=== PATIENT | male | born 1935 | race Caucasian/White ===

== ENCOUNTER 2016-10-06 05:24 | Inpatient (IN) ==
[2016-10-06 05:45] LABS: Eosinophils # 0.1 K/mcL (0.0-0.6); Eosinophils % 3.2 %; Hemoglobin 12.9 g/dL (12.9-16.9); Lymphocytes # 0.9 K/mcL (0.6-4.6); Lymphocytes % 21.7 %; Mean Corpuscular HGB Conc 31.5 g/dL (31.6-35.5); Mean Corpuscular Hemoglobin 23.4 pg (28.0-33.3); Mean Corpuscular Volume 74.4 fL (83.0-100.0); Mean Platelet Volume 10.1 fL (9.4-12.4); Monocytes # 0.4 K/mcL (0.0-1.3); Monocytes % 10.6 %; Neutrophils # 2.6 K/mcL (1.6-8.9); Platelet Count 223 K/mcL (140-400); Red Blood Count 5.51 M/mcL (4.19-5.50); Segmented Neutrophils % 63.5 %
[2016-10-06] MEDS ORDERED: Aspirin 81 MG TAB.CHEW PO ONE (05:52)
[2016-10-06 05:56] LABS: Calcium 9.1 mg/dL (8.6-10.8); Potassium 3.7 mEq/L (3.5-4.5)
[2016-10-06] MEDS: Nitroglycerin 0.4 MG TAB.SUBL SL ONE ×3 (06:07→06:29)
--- NOTE | 2016-10-06 06:15 | Emergency Department Note ---
Disposition Clinical Impression: Lung nodule Chest pain Qualifiers: Chest pain type: unspecified Qualified Code(s): R07.9 - Chest pain, unspecified Disposition: Admitted As Inpatient Condition: Fair Chest Pain HPI - General Chief Complaint: ED Chest Pain Stated Complaint: CP Time Seen by Provider: 10/06/16 05:29 Source: patient, EMS Mode of arrival: EMS Limitations: no limitations Vital Signs Reviewed: Yes Nursing Notes Reviewed: Yes - History of Present Illness HPI Narrative: 81-year-old male history of hypertension and former smoker presents to ED via EMS for chest pain. Reports around 3 o'clock this morning he woke up to go to the bathroom when he began to experience a sharp right-sided chest pain that radiated to the left chest into the back with radiation down both arms numbness and tingling. He denies any shortness of breath, diaphoresis, nausea or vomiting. No history of such before. No history of cardiac ischemic disease. Pain persists in the chest but does not have any numbness or tingling down arms currently. Denies any recent illness, cough, fever, abdominal pain. Denies any urinary symptoms. He follows at the [facility]. No history of blood clots. Pt complaint: chest pain Severity scale (1-10): 10 - Related Data Home Medications Medication Instructions Recorded Confirmed Acetaminophen [Tylenol] 650 mg PO TID PRN 10/06/16 10/06/16 Aspirin [Lo-Dose Aspirin EC] 81 mg PO DAILY 10/06/16 10/06/16 CloNIDine HCl 0.1 mg PO BID 10/06/16 10/06/16 Losartan Potassium [Cozaar] 50 mg PO DAILY 10/06/16 10/06/16 Meclizine [Antivert] 12.5 mg PO TID PRN 10/06/16 10/06/16 Allergies Allergy/AdvReac Type Severity Reaction Status Date / Time Penicillins Allergy Anaphylaxis Verified 10/06/16 05:26 All systems ED: reviewed and negative except as stated. Constitutional: Denies: fever, chills, weakness Cardiovascular: Reports: chest pain. Denies: palpitations, dyspnea on exertion Respiratory: Denies: cough, dyspnea Gastrointestinal: Denies: abdominal pain, nausea, vomiting Genitourinary: Denies: urgency, dysuria Musculoskeletal: Reports: back pain Integumentary: Denies: rash, abrasion Neurological: Denies: headache Chest Pain PMH - Past Medical History Medical history: Reports: hypertension Psychiatric history: Reports: no psych history - Social History Smoking Status: Former smoker Physical Exam - General Limitations: no limitations General appearance: alert, in no apparent distress - Head Head exam: atraumatic, normocephalic, normal inspection - Eye Eye exam: Present: normal appearance, PERRL, EOMI - ENT ENT exam: normal exam, normal oropharynx, mucous membranes moist - Neck Neck exam: Present: normal inspection, full ROM, trachea midline. Absent: tenderness - Chest Chest inspection: Present: normal inspection, symmetric chest wall rise. Absent : tenderness - Respiratory Respiratory exam: Present: normal lung sounds bilaterally. Absent: respiratory distress, wheezes - Cardiovascular Cardiovascular exam: Present: regular rate, normal rhythm, normal heart sounds. Absent: systolic murmur, diastolic murmur - Abdominal Exam Abdominal exam: Present: soft, Non-Tender, normal bowel sounds. Absent: tenderness, distention, guarding, rebound, rigidity - Extremities Exam Extremities exam: Present: normal inspection, full ROM, normal capillary refill. Absent: tenderness, pedal edema, calf tenderness - Back Exam Back exam: Present: normal inspection, full ROM. Absent: tenderness, vertebral tenderness - Neurological Exam Neurological exam: Present: alert, oriented X3 - Psychiatric Psychiatric exam: Present: normal affect, normal mood - Skin Skin exam: Present: warm, dry, intact, normal color Course Course Narrative: 81-year-old male presents with chest pain. No history of cardiac ischemic disease. No prior history of cardiac workup. History of hypertension. Patient 's vital signs are stable. EKG does not show acute ischemic changes consistent with STEMI pattern. Appears in no apparent distress. Heart is regular rate and rhythm. Lungs are clear auscultation bilaterally. Abdomen is soft nontender nondistended. Pulses are symmetrical bilaterally. Chest pain workup initiated. Initial HEART score is 4 pending troponin. Aspirin given. Given a nitro trial. Patient is in agreement with plan. Likely need admission. - Reevaluation(s) Reevaluation #1: Repeat EKG performed 643 shows a similar findings of normal sinus rhythm with an occasional premature atrial complex. No progression of any ischemic changes. Pain diminished after 3 nitro but down to 3-4. BP remains stable. Continues to describe pain radiating to the back. Initial troponin 0.02. CT of the chest with contrast to rule out dissection. Cr is elevated at 1.5. Normal saline ordered to protect risk of nephropathy. Patient is agreeable. Patient signed out to daytime physician Dr. Storm for further management and disposition following CTA chest. Time: 06:57 Vital Signs Temperature 97.9 F 10/06/16 05:26 Pulse Rate 70 10/06/16 05:26 Respiratory Rate 12 10/06/16 05:26 Blood Pressure 141/82 10/06/16 05:26 O2 Sat by Pulse Oximetry 99 10/06/16 05:26 Temperature 97.7 F 10/07/16 15:08 Pulse Rate 60 10/07/16 15:08 Respiratory Rate 14 10/07/16 15:08 Blood Pressure 161/76 10/07/16 15:08 O2 Sat by Pulse Oximetry 97 10/07/16 15:08 Oxygen Delivery Oxygen Delivery Room Air Chest Pain - Medical Records Medical records reviewed: Yes I reviewed the patient's medical records. - Lab Data Lab results reviewed: Yes I reviewed the patient's lab results. Result diagrams: 10/07/16 03:33 10/07/16 03:33 Lab Results 10/06/16 10/06/16 10/06/16 Range/Units 05:36 05:36 05:36 WBC 4.1 L (4.3-11.1) K/mcL RBC 5.51 H (4.19-5.50) M/mcL Hgb 12.9 (12.9-16.9) g/dL Hct 41.0 (37.5-50.1) % MCV 74.4 L (83.0-100.0) fL MCH 23.4 L (28.0-33.3) pg MCHC 31.5 L (31.6-35.5) g/dL RDW 15.0 H (11.5-14.5) % Plt Count 223 (140-400) K/mcL MPV 10.1 (9.4-12.4) fL Immature Gran % 0.0 (0-4) % Seg Neutrophils % 63.5 % Lymphocytes % 21.7 % Monocytes % 10.6 % Eosinophils % 3.2 % Basophils % 1.0 % Neutrophils # 2.6 (1.6-8.9) K/mcL Lymphocytes # 0.9 (0.6-4.6) K/mcL Monocytes # 0.4 (0.0-1.3) K/mcL Eosinophils # 0.1 (0.0-0.6) K/mcL Basophils # 0.0 (0.0-0.2) K/mcL PT (9.4-12.1) Seconds INR APTT (26.0-36.0) Seconds Sodium 135 L (136-145) mEq/L Potassium 3.7 (3.5-4.5) mEq/L Chloride 101 (98-109) mEq/L Carbon Dioxide 23 (19-29) mEq/L BUN 27 H (8-26) mg/dL Creatinine 1.56 H (0.72-1.25) mg/dL Est GFR ( Amer) 52 L (> 60) Est GFR (Non-Af Amer) 43 L (> 60) BUN/Creatinine Ratio 17 (6-26) Glucose 128 H (70-99) mg/dL Calculated Osmolality 287 (280-300) Calcium 9.1 (8.6-10.8) mg/dL Total Bilirubin 0.5 (0.2-1.2) mg/dL Direct Bilirubin 0.2 (0.0-0.5) mg/dL Indirect Bilirubin 0.3 (0.0-1.2) mg/dL AST 25 (5-34) Units/L ALT 23 (0-55) Units/L Alkaline Phosphatase 73 (38-126) Units/L Troponin I 0.02 (0-0.03) ng/mL Serum Total Protein 7.4 (6.0-8.3) g/dL Albumin 3.8 (3.5-5.0) g/dL Globulin 3.6 H (2.4-3.5) g/dL Albumin/Globulin Ratio 1.1 (1.1-2.2) Lipase 48 (8-78) Units/L 04/05/17 Range/Units 05:36 WBC (4.3-11.1) K/mcL RBC (4.19-5.50) M/mcL Hgb (12.9-16.9) g/dL Hct (37.5-50.1) % MCV (83.0-100.0) fL MCH (28.0-33.3) pg MCHC (31.6-35.5) g/dL RDW (11.5-14.5) % Plt Count (140-400) K/mcL MPV (9.4-12.4) fL Immature Gran % (0-4) % Seg Neutrophils % % Lymphocytes % % Monocytes % % Eosinophils % % Basophils % % Neutrophils # (1.6-8.9) K/mcL Lymphocytes # (0.6-4.6) K/mcL Monocytes # (0.0-1.3) K/mcL Eosinophils # (0.0-0.6) K/mcL Basophils # (0.0-0.2) K/mcL PT 10.9 (9.4-12.1) Seconds INR 1.0 APTT 27.9 (26.0-36.0) Seconds Sodium (136-145) mEq/L Potassium (3.5-4.5) mEq/L Chloride (98-109) mEq/L Carbon Dioxide (19-29) mEq/L BUN (8-26) mg/dL Creatinine (0.72-1.25) mg/dL Est GFR ( Amer) (> 60) Est GFR (Non-Af Amer) (> 60) BUN/Creatinine Ratio (6-26) Glucose (70-99) mg/dL Calculated Osmolality (280-300) Calcium (8.6-10.8) mg/dL Total Bilirubin (0.2-1.2) mg/dL Direct Bilirubin (0.0-0.5) mg/dL Indirect Bilirubin (0.0-1.2) mg/dL AST (5-34) Units/L ALT (0-55) Units/L Alkaline Phosphatase (38-126) Units/L Troponin I (0-0.03) ng/mL Serum Total Protein (6.0-8.3) g/dL Albumin (3.5-5.0) g/dL Globulin (2.4-3.5) g/dL Albumin/Globulin Ratio (1.1-2.2) Lipase (8-78) Units/L - Radiology Data Radiology results reviewed: Yes I reviewed the patient's radiology results. Chest X-Ray 10/06/16 05:29 IMPRESSION: Negative portable chest. D/ / Александр Tripp MD / Александр Tripp MD Interpreting Provider: Александр Tripp MD - EKG Data EKG attestation: Yes I reviewed and interpreted this EKG. EKG results narrative: EKG performed 529 normal sinus rhythm with occasional premature atrial complexes 71 bpm, good R-R wave progression, normal axis, there are no ST elevations or depressions, no T-wave inversions. Intervals are within normal limits GA interval 161 QRS 102 QT QTC 393 416. No old EKG for comparison. No acute ischemic changes. Heart Score - Score History: Moderately Suspicious EKG: Normal Age: Greater than 65 Risk Factors: 1-2 risk factors Troponin: Less than normal limit HEART Score Total: 4 S.B.A.R. - S.B.A.R. Situation: Demographics, MOA Background: Presenting Complaint, Relevant PMH, Meds, & Allergies Assessment: Vital Signs, Course and respsone to treatment, Exam Concerns, Patient/Family Expectation, Pertinant Lab Results, Outstanding Labs Recommendation: Barrier(s) to disposition, Recommendation based on pending studies, treatments, or consults S.B.A.R. Report Given to: Dr. Emeterio PalacioBLeslieASony Repor Time: 07:06 Attestation Statement - Attestation Attestation: I personally interviewed and examined this patient and my medical decision- making was reviewed with the ED Resident Physician, Dr. Vides. I agree with the documented findings, disposition and treatment plan as described except to the extent set forth below. Pt is an 81 yo wm, with c/o R sided CP radiating across chest and through to this back, who reports that he has never been evaluated in the past for CP. No prior [employer] HEL[employer], no old EKG for comparison. Heart score = 4. Pt with inital trop = 0.02. Mild renal insufficiency. Decided with his hx HTN, and pain radiating to back, will obtain CT chest to r/o dissection/aneurysm. Pt hemodynamically stable with good BP. Distal pulses x 4 equal and 2/4 b/l. Pt signed out to AM Dr. Storm for f/u on CT results and final disposition.
[2016-10-06 06:17] LABS: Prothrombin Time 10.9 Seconds (9.4-12.1)
[2016-10-06 06:19] LABS: Activated Partial Thrombo Time 27.9 Seconds (26.0-36.0)
[2016-10-06 06:21] LABS: Albumin 3.8 g/dL (3.5-5.0); Albumin/Globulin Ratio 1.1 (1.1-2.2); Bilirubin,Direct 0.2 mg/dL (0.0-0.5); Bilirubin,Indirect 0.3 mg/dL (0.0-1.2); Bilirubin,Total 0.5 mg/dL (0.2-1.2); Globulin 3.6 g/dL (2.4-3.5); Total Protein 7.4 g/dL (6.0-8.3)
[2016-10-06] MEDS ORDERED: 0.9 % Sodium Chloride 500 ML IVC ONE (06:49)
--- NOTE | 2016-10-06 07:36 | Emergency Department Note ---
Disposition Clinical Impression: Lung nodule Chest pain Qualifiers: Chest pain type: unspecified Qualified Code(s): R07.9 - Chest pain, unspecified Disposition: Admitted As Inpatient Condition: Fair Time of Disposition: 07:39 General Adult HPI - General Chief complaint: ED Chest Pain Stated complaint: CP Time Seen by Provider: 10/06/16 05:29 Source: patient, EMS Mode of arrival: EMS Limitations: no limitations - History of Present Illness Pain Scale: 10 - Related Data Home Medications Medication Instructions Recorded Confirmed Acetaminophen [Tylenol] 650 mg PO TID PRN 10/06/16 10/06/16 Aspirin [Lo-Dose Aspirin EC] 81 mg PO DAILY 10/06/16 10/06/16 CloNIDine HCl 0.1 mg PO BID 10/06/16 10/06/16 Losartan Potassium [Cozaar] 50 mg PO DAILY 10/06/16 10/06/16 Meclizine [Antivert] 12.5 mg PO TID PRN 10/06/16 10/06/16 Allergies Allergy/AdvReac Type Severity Reaction Status Date / Time Penicillins Allergy Anaphylaxis Verified 10/06/16 05:26 Constitutional: Denies: fever, chills, weakness Cardiovascular: Reports: chest pain. Denies: palpitations, dyspnea on exertion Respiratory: Denies: cough, dyspnea Gastrointestinal: Denies: abdominal pain, nausea, vomiting Genitourinary: Denies: urgency, dysuria Musculoskeletal: Reports: back pain Integumentary: Denies: rash, abrasion Neurological: Denies: headache Past Medical History - Past Medical History Medical history: Reports: hypertension Psychiatric history: Reports: no psych history - Social History Smoking Status: Former smoker Smokeless Tobacco Status: No Physical Exam - General Limitations: no limitations General appearance: alert, in no apparent distress Course - Reevaluation(s) Reevaluation #1: 81-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 Patient developed chest pain with no history of coronary artery disease.. Emergency Department did show negative troponin. In light of the symptoms and no previous history a CT scan of the chest was ordered. CT scan shows no evidence of dissection but does show pulmonary nodules, 4 mm noncalcified nodule in the right middle lobe, 4 mm nodule in the left upper lobe. Review of EKGs from 5:29 AM and 643 shows PACs no acute change. She will be admitted for further evaluation and treatment Time: 07:25 - Consultations Consultation #1: Dr. Skinner called back but would not talk to me states she's dealing with admissions from last night will call back in an hour. Time: 08:08 Consultation #2: Discussed with , admit. I discussed the results of testing including the 2 lung nodules that will need to be followed up. Time: 10:00 Vital Signs Temperature 97.9 F 10/06/16 05:26 Pulse Rate 70 10/06/16 05:26 Respiratory Rate 12 10/06/16 05:26 Blood Pressure 141/82 10/06/16 05:26 O2 Sat by Pulse Oximetry 99 10/06/16 05:26 Temperature 97.9 F 10/06/16 05:26 Pulse Rate 63 10/06/16 08:09 Respiratory Rate 18 10/06/16 08:09 Blood Pressure 124/73 10/06/16 08:09 O2 Sat by Pulse Oximetry 98 10/06/16 08:09 Oxygen Delivery Oxygen Delivery Room Air Medical Decision Making - Lab Data Result diagrams: 10/06/16 05:36 10/06/16 05:36 Lab Results 10/06/16 10/06/16 10/06/16 Range/Units 05:36 05:36 05:36 WBC 4.1 L (4.3-11.1) K/mcL RBC 5.51 H (4.19-5.50) M/mcL Hgb 12.9 (12.9-16.9) g/dL Hct 41.0 (37.5-50.1) % MCV 74.4 L (83.0-100.0) fL MCH 23.4 L (28.0-33.3) pg MCHC 31.5 L (31.6-35.5) g/dL RDW 15.0 H (11.5-14.5) % Plt Count 223 (140-400) K/mcL MPV 10.1 (9.4-12.4) fL Immature Gran % 0.0 (0-4) % Seg Neutrophils % 63.5 % Lymphocytes % 21.7 % Monocytes % 10.6 % Eosinophils % 3.2 % Basophils % 1.0 % Neutrophils # 2.6 (1.6-8.9) K/mcL Lymphocytes # 0.9 (0.6-4.6) K/mcL Monocytes # 0.4 (0.0-1.3) K/mcL Eosinophils # 0.1 (0.0-0.6) K/mcL Basophils # 0.0 (0.0-0.2) K/mcL PT (9.4-12.1) Seconds INR APTT (26.0-36.0) Seconds Sodium 135 L (136-145) mEq/L Potassium 3.7 (3.5-4.5) mEq/L Chloride 101 (98-109) mEq/L Carbon Dioxide 23 (19-29) mEq/L BUN 27 H (8-26) mg/dL Creatinine 1.56 H (0.72-1.25) mg/dL Est GFR ( Amer) 52 L (> 60) Est GFR (Non-Af Amer) 43 L (> 60) BUN/Creatinine Ratio 17 (6-26) Glucose 128 H (70-99) mg/dL Calculated Osmolality 287 (280-300) Calcium 9.1 (8.6-10.8) mg/dL Total Bilirubin 0.5 (0.2-1.2) mg/dL Direct Bilirubin 0.2 (0.0-0.5) mg/dL Indirect Bilirubin 0.3 (0.0-1.2) mg/dL AST 25 (5-34) Units/L ALT 23 (0-55) Units/L Alkaline Phosphatase 73 (38-126) Units/L Troponin I 0.02 (0-0.03) ng/mL Serum Total Protein 7.4 (6.0-8.3) g/dL Albumin 3.8 (3.5-5.0) g/dL Globulin 3.6 H (2.4-3.5) g/dL Albumin/Globulin Ratio 1.1 (1.1-2.2) Lipase 48 (8-78) Units/L 04/05/17 Range/Units 05:36 WBC (4.3-11.1) K/mcL RBC (4.19-5.50) M/mcL Hgb (12.9-16.9) g/dL Hct (37.5-50.1) % MCV (83.0-100.0) fL MCH (28.0-33.3) pg MCHC (31.6-35.5) g/dL RDW (11.5-14.5) % Plt Count (140-400) K/mcL MPV (9.4-12.4) fL Immature Gran % (0-4) % Seg Neutrophils % % Lymphocytes % % Monocytes % % Eosinophils % % Basophils % % Neutrophils # (1.6-8.9) K/mcL Lymphocytes # (0.6-4.6) K/mcL Monocytes # (0.0-1.3) K/mcL Eosinophils # (0.0-0.6) K/mcL Basophils # (0.0-0.2) K/mcL PT 10.9 (9.4-12.1) Seconds INR 1.0 APTT 27.9 (26.0-36.0) Seconds Sodium (136-145) mEq/L Potassium (3.5-4.5) mEq/L Chloride (98-109) mEq/L Carbon Dioxide (19-29) mEq/L BUN (8-26) mg/dL Creatinine (0.72-1.25) mg/dL Est GFR ( Amer) (> 60) Est GFR (Non-Af Amer) (> 60) BUN/Creatinine Ratio (6-26) Glucose (70-99) mg/dL Calculated Osmolality (280-300) Calcium (8.6-10.8) mg/dL Total Bilirubin (0.2-1.2) mg/dL Direct Bilirubin (0.0-0.5) mg/dL Indirect Bilirubin (0.0-1.2) mg/dL AST (5-34) Units/L ALT (0-55) Units/L Alkaline Phosphatase (38-126) Units/L Troponin I (0-0.03) ng/mL Serum Total Protein (6.0-8.3) g/dL Albumin (3.5-5.0) g/dL Globulin (2.4-3.5) g/dL Albumin/Globulin Ratio (1.1-2.2) Lipase (8-78) Units/L
--- NOTE | 2016-10-06 11:09 | Internal Med History&Physical ---
Date of Encounter: 10/06/16 Time of Encounter: 11:08 Assessment and Plan (1) Unstable angina Current visit: Yes Status: Acute Patient with atypical chest pain, with risk factors for cardiac disease including age, gender, HTN, history of smoking, pre-DM EKG showed TWI in lead III, and PVCs Initial troponin negative, repeat trop 0.04 Will start on therapeutic lovenox, renally dosed due to PRAVEEN Continue ASA Start BB, Lipitor Hold Clonidine for now Hold Losartan for now due to PRAVEEN A1C, Lipid panel sent Obtain ECHO Consult cardiology (2) PRAVEEN (acute kidney injury) Current visit: Yes Status: Acute PRAVEEN No prior renal function studies here patient is unaware of prior kidney disease Obtain retroperitoneal USS Gentle IVF hydration Avoid nephrotoxins Will consult renal if not improving (3) Lung nodule Current visit: Yes Status: Acute Incidental CTA finding, bilateral, sub-cm nodules High risk due to history of smoking May need pulm review prior to discharge (4) Hypertension Current visit: Yes Status: Chronic Mgt as in unstable angina Qualifiers: Hypertension type: essential hypertension Qualified Code(s): I10 - Essential (primary) hypertension (5) Pre-diabetes Current visit: Yes Status: Acute Internal Medicine - H&P: HPI Chief complaint: Chest pain Admitted From: Home Plans for Post Hospital Care: Home History of present illness: Mr. Pagan is a 81 year old male , seen at bedside with spouse, patient has hearing impairment and could not hear me clearly, most history was obtained from his , who promised to go home to bring patient's hearing aids later He was in good health and active physically until early hours of the day when he developed sudden sharp chest pain on the right side of his chest, said to have raidiated to the left and both arms with associated numbness and tingling of both arms He denies associated episodes of nausea, vomiting, diaphoresis , or shortness of breath. Chest pain was about 5 on presentation and 0 at time of review. He denies SOB, orthopnea, PND, leg swelling, he has no cough or wheezing. At time of review, he denies any complains, no recent weight loss, no fatiguability he states his chest pain resolved prior to presentation here, he denies prior history of heart disease, he follows up at the [facility] and denies any recent procedures He denies GI/Neurologic, or Urologic symptoms Past Med Surg Social Fam HX - Past Medical History Medical history: hypertension Psychiatric history: no psych history - Social History Smoking Status: Former smoker Smokeless Tobacco Status: No Internal Medicine - H&P: Meds Acetaminophen [Tylenol] 650 mg PO TID PRN 10/06/16 [History] Aspirin [Lo-Dose Aspirin EC] 81 mg PO DAILY 10/06/16 [History] CloNIDine HCl 0.1 mg PO BID 10/06/16 [History] Losartan Potassium [Cozaar] 50 mg PO DAILY 10/06/16 [History] Meclizine [Antivert] 12.5 mg PO TID PRN 10/06/16 [History] Allergies Penicillins Allergy (Verified 10/06/16 05:26) Anaphylaxis All Systems PM: A 10-system review of systems was performed and is negative for pertinent findings except as documented above in the HPI. - Constitutional Constitutional: no chills, no fever(s), no night sweats - EENT Eyes: as per HPI, no change in vision, no discharge, no pain, no photophobia Ears: no ear discharge, no ear pain, no tinnitus Nose, mouth and throat: no dysphagia, no nasal discharge, no neck pain, no sore throat - Cardiovascular Cardiovascular ROS IM: as per HPI - Respiratory Respiratory: as per HPI - Gastrointestinal Gastrointestinal: as per HPI - Musculoskeletal Musculoskeletal ROS IM: no numbness, no tingling - Integumentary Integumentary IM: no rash, no unusual bruising - Neurological Neurological ROS: no confusion, no convulsions, no focal weakness, no numbness, no tingling, no tremor(s) - Hematologic/Lymphatic Hematologic/Lymphatic: no easy bruising - Constitutional Vitals: Temp Pulse Resp BP Pulse Ox 97.9 F 63 18 124/73 98 10/06/16 05:26 10/06/16 08:09 10/06/16 08:09 10/06/16 08:09 10/06/16 08:09 General appearance: Present: A&O X 3, pleasant, no acute distress - Head Head exam: Present: atraumatic, normocephalic - Eye Eye exam: Present: PERRL, conjuntiva pink, sclera anicteric Pupils: Present: PERRL - Neck Neck exam general surgery: Present: supple, trachea midline. Absent: lymphadenopathy - Respiratory Respiratory exam: Present: CTAB. Absent: accessory muscle use, rales, rhonchi, wheezes - Cardiovascular Cardiovascular exam: Present: RRR, +S1, +S2. Absent: diastolic murmur, gallop, rubs, systolic murmur - GI/Abdominal GI/Abdominal exam: Present: normal bowel sounds, soft, no peritoneal signs. Absent: distended, tenderness - Extremities Exam Extremities exam: Present: warm, radial pulses palpable and symetrical. Absent : calf tenderness, cyanotic, pedal edema - Neurological Exam Neurological exam: Present: alert, CN II-XII intact, oriented X3, no focal deficits. Absent: pronater drift, facial droop, speech deficit - Skin Skin exam: Present: dry, intact Internal Med - H&P Results - Labs CBC & Chem 7: 10/06/16 05:36 10/06/16 05:36
[2016-10-06] MEDS ORDERED: *HR* HYDROmorphone (PF) 1 MG/ML SYRINGE IVP PRN (11:10)
[2016-10-06] MEDS ORDERED: *HR* HYDROcodone/Acet 5/325 mg TABLET PO PRN (11:10)
[2016-10-06] MEDS ORDERED: Acetaminophen 325 MG TABLET PO PRN (11:10)
[2016-10-06] MEDS ORDERED: Naloxone 0.4 MG/ML INJ IVP PRN (11:10)
[2016-10-06 11:36] LABS: Hemoglobin A1C 5.9 %
[2016-10-06 11:42] LABS: Chol/HDL Ratio 5.9 (0-4.9)
[2016-10-06] MEDS ORDERED: Enoxaparin Weight Dosing SQ SCH (12:45)
[2016-10-06] MEDS ORDERED: *HR* Heparin 5,000 UNIT/ML VIAL IVP PRN ×2 (13:12)
[2016-10-06] MEDS ORDERED: *HR* Heparin 5,000 UNIT/ML VIAL IVP ONE (13:12)
[2016-10-06] MEDS ORDERED: Heparin 25,000 UNIT/500 ML D5W 25,000 UNIT/500 ML MLS IVC SCH (13:15)
[2016-10-06] MEDS ORDERED: Nitroglycerin 0.4 MG TAB.SUBL SL ONE (13:19)
--- NOTE | 2016-10-06 13:27 | Cardiology Consult Note ---
Date of Encounter: 10/06/16 Time of Encounter: 13:00 Assessment and Plan (1) Elevated troponin Current Visit: Yes Status: Acute Troponin 0.02, 0.04. ST/T wave changes noted, no prior ECG to compare. Typical chest pain symptoms, alleviated with x3 NTG tabs in ED. Change lovenox to heparin gtt given renal insufficiency. Reports 2-3/10 right arm discomfort now, SL NTG given. If continues to have discomfort, start IV NTG gtt and titrate to keep chest pain free. Agree with asa, statin, and betablocker. Echocardiogram ordered. Continue to cycle troponin. He will likely require ischemic evaluation, will await for above testing results and review with Dr. Lowe. (2) Renal insufficiency Current Visit: Yes Status: Acute Unclear baseline. SCr upon presentation 1.56. Avoid nephrotoxins, agree with IVF. Change lovenox to heparin gtt. [facility] (3) Hypertension Current Visit: Yes Status: Chronic Currently controlled, continue to monitor. Qualifiers: Hypertension type: essential hypertension Qualified Code(s): I10 - Essential (primary) hypertension Discussion w patient/family: The assessment and plan as outlined above was discussed with the patient and/or family members who expressed understanding and agreement. All questions were answered. Thank you for involving us in the care of your patient. Please call with any questions. The patient will be discussed and reviewed with Dr. Lowe; changes to be made accordingly. History of Present Illness Consult date: 10/06/16 Requesting physician: Reji Skinner Consult reason: Elevated troponin, chest pain Chief complaint: Chest pain History of present illness: Mr. Pagan is a 81 year old male with PMH significant for HTN and remote tobacco use (quit 1970) who presented to the ED with right sided chest pain that occurred at 3 AM this morning shortly after waking up. Reports pain started right side and radiated across chest and down bilateral arms. He reports his BP was taken and was SBP >220, he took a tylenol and baby aspirin but did not improve pain, he then went to the ED. Reports he was given x3 SL NTG in ED, and by third dose, his pain resolved. 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 Also reports intermittent right shoulder-arm ache that has been occurring over the past few months, he had attributed to a bad back. Upon arrival, initial troponin 0.02. SCr 1.56--unknown baseline. His reports [facility] function was [facility]. Past Med Surg Social Fam HX - Past Medical History Medical history: hypertension Psychiatric history: no psych history - Social History Smoking Status: Former smoker Smokeless Tobacco Status: No - Family History Father Living Status: Hx Family Cardiac Disorders: Yes ( late [address]'s CT) Mother Living Status: Cause of : Cancer Medications and Allergies Acetaminophen [Tylenol] 650 mg PO TID PRN 10/06/16 [History] Aspirin [Lo-Dose Aspirin EC] 81 mg PO DAILY 10/06/16 [History] CloNIDine HCl 0.1 mg PO BID 10/06/16 [History] Losartan Potassium [Cozaar] 50 mg PO DAILY 10/06/16 [History] Meclizine [Antivert] 12.5 mg PO TID PRN 10/06/16 [History] Allergies Penicillins Allergy (Verified 10/06/16 05:26) Anaphylaxis All Systems Review: A 10-system review of systems was performed and is negative for pertinent findings except as documented above in the HPI. - Cardiovascular Cardiovascular: as per HPI Physical Examination Vital Signs, Last 4 Hours Temp Pulse Resp BP Pulse Ox 10/06/16 11:30 97.8 F 63 16 158/76 99 10/06/16 11:08 18 117/68 General: Conversant, No Apparent Distress HEENT: Atraumatic, Normocephaly, Mucus Membranes Moist Cardiac: Reg Rate and Rhythm, Normal S1 and S2 Lungs: Normal Breath Sounds Neuro: Alert and responsive Abdomen: Soft Skin: No rashes noted on visualized skin Musculoskeletal: No Chest Wall Tenderness Extremities: No Edema, Normal Pulses Results 10/06/16 05:36 10/06/16 05:36 Lab Results 10/06/16 11:22 Troponin I 0.04 H* Active Medications Acetaminophen (Tylenol) 650 mg PO Q6HR PRN PRN Reason: Mild Pain (1-3) Stop: 04/07/17 11:11 Acetaminophen/Hydrocodone Bitart ([place] 5-325 Mg) 1 tab PO Q4HR PRN PRN Reason: Moderate Pain (4-6) Stop: 04/07/17 11:11 Aspirin (Aspirin Ec) 81 mg PO DAILY [facility] Stop: 04/08/17 09:01 Atorvastatin Calcium (Lipitor) 40 mg PO HS [facility] Stop: 04/07/17 21:01 Clonidine HCl (Clonidine Hcl) 0.1 mg PO BID [facility] Stop: 04/07/17 21:01 Heparin Sodium (Porcine) (Heparin) 4,000 unit IVP Q6HR PRN PRN Reason: SEE COMMENTS Stop: 04/07/17 13:13 Heparin Sodium (Porcine) (Heparin) 2,000 unit IVP Q6H PRN PRN Reason: SEE COMMENTS Stop: 04/07/17 13:13 Hydromorphone HCl (Dilaudid) 0.5 mg IVP Q4HR PRN PRN Reason: Severe Pain (7-10) Stop: 04/07/17 11:11 Sodium Chloride (0.9 % Sodium Chloride) 1,000 mls @ 100 mls/hr IVC .Q10H SHAM[facility] Stop: 04/07/17 11:16 Heparin Sodium/Dextrose (Heparin 25,000 Unit/500 Ml D5w) 25,000 unit in 500 mls @ 19.655 mls/hr IVC .Q24H SHAMIR; 9.5 UNIT/KG/HR PRN Reason: Protocol Stop: 04/07/17 13:16 Meclizine HCl (Antivert) 12.5 mg PO TID PRN PRN Reason: DIZZINESS Stop: 04/07/17 11:13 Metoprolol Tartrate (Lopressor) 12.5 mg PO BID [facility] Stop: 04/07/17 21:01 Naloxone HCl (Narcan) 0.4 mg IVP Q2MIN PRN PRN Reason: Opioid Reversal Stop: 04/07/17 11:11 Nitroglycerin (Nitroglycerin) 0.4 mg SL Q5MIN PRN PRN Reason: Chest Pain Stop: 04/07/17 13:09 - Imaging and Cardiology Echo: pending Other Results: Telemetry: avg HR 73 - EKG Interpretation EKG results cardiology: personally reviewed Consult Discharge Plan - Plan [facility]: [facility] [Primary Care Provider] -
[2016-10-06] MEDS: Nitroglycerin 0.4 MG TAB.SUBL SL PRN ×2 (13:30→13:48)
[2016-10-06] MEDS: 0.9 % Sodium Chloride 1,000 ML IVC SCH ×2 (13:30→21:03)
[2016-10-06] MEDS ORDERED: *HR* Heparin 5,000 UNIT/ML VIAL SQ SCH (14:00)
[2016-10-06] MEDS ORDERED: *HR* Morphine 2 MG/ML SYRINGE IVP ONE (14:02)
[2016-10-06 14:14] LABS: Hematocrit 41.1 % (37.5-50.1); Hemoglobin 12.6 g/dL (12.9-16.9); Mean Corpuscular HGB Conc 30.7 g/dL (31.6-35.5); Mean Corpuscular Hemoglobin 22.8 pg (28.0-33.3); Mean Corpuscular Volume 74.5 fL (83.0-100.0); Mean Platelet Volume 10.9 fL (9.4-12.4); Platelet Count 242 K/mcL (140-400); Red Blood Count 5.52 M/mcL (4.19-5.50); Red Cell Distribution Width 15.3 % (11.5-14.5)
[2016-10-06] MEDS ORDERED: cloNIDine HCl 0.1 MG TABLET PO SCH (21:00)
[2016-10-06] MEDS: Heparin 25,000 UNIT/500 ML D5W 25,000 UNIT/500 ML MLS IVC SCH (21:15)
[2016-10-07 04:45] LABS: Basophils % 0.8 %; Eosinophils # 0.2 K/mcL (0.0-0.6); Hematocrit 36.9 % (37.5-50.1); Hemoglobin 11.3 g/dL (12.9-16.9); Lymphocytes # 1.6 K/mcL (0.6-4.6); Lymphocytes % 31.5 %; Mean Corpuscular HGB Conc 30.6 g/dL (31.6-35.5); Mean Platelet Volume 10.4 fL (9.4-12.4); Monocytes # 0.4 K/mcL (0.0-1.3); Monocytes % 8.5 %; Neutrophils # 2.7 K/mcL (1.6-8.9); Platelet Count 190 K/mcL (140-400); Red Blood Count 4.92 M/mcL (4.19-5.50); Red Cell Distribution Width 15.3 % (11.5-14.5); Segmented Neutrophils % 55.2 %
[2016-10-07 04:52] LABS: BUN/Creatinine Ratio 16 (6-26); Blood Urea Nitrogen 19 mg/dL (8-26); Calcium 8.9 mg/dL (8.6-10.8); Carbon Dioxide 25 mEq/L (19-29); Chloride 104 mEq/L (98-109); Glucose 94 mg/dL (70-99); Osmolality,Calculated 288 (280-300); Sodium 138 mEq/L (136-145); eGFR For African Americans > 60 (> 60); eGFR For Non-African Americans 58 (> 60)
--- NOTE | 2016-10-07 06:38 | Electrocardiograph Report ---
[place] [id number] Test Date: 2016-10-06 Pat Name: Bebeto Pagan Department: 104 Room: 3B Gender: M [employer]utter: : 1935 Requested By: Saad Vides Order Number: [id number] Reading MD: Danny Napier MD Measurements Intervals [place] Rate: 71 P: 43 GA: 161 QRS: 19 QRSD: 102 T: 43 QT: 393 QTc: 416 Interpretive Statements SINUS RHYTHM WITH OCCASIONAL VENTRICULAR PREMATURE COMPLEXES BASELINE ARTIFACT Electronically Signed On 10-07-2016 6:36:44 EDT by Danny Napier MD
[2016-10-07] MEDS: 0.9 % Sodium Chloride 1,000 ML IVC SCH ×2 (07:17→13:19)
[2016-10-07] MEDS ORDERED: Heparin 1,000 UNITS/500 mL NS 500 ML ONE (07:34)
[2016-10-07] MEDS ORDERED: Nitroglycerin 1,000 MCG/10 ML VIAL IV ONE (07:34)
[2016-10-07] MEDS ORDERED: *HR* Heparin 10,000 UNIT/10 ML VIAL ONE (07:34)
[2016-10-07] MEDS ORDERED: Verapamil 5 MG/2 ML VIAL ONE (07:34)
[2016-10-07] MEDS ORDERED: 0.9 % Sodium Chloride 1,000 ML ONE (07:34)
--- NOTE | 2016-10-07 07:46 | Pre-Sedation Evaluation ---
Pre-sedation evaluation - Pre-sedation checklist Date of procedure: 10/07/16 Procedure: [facility] Recent Vitals: Last Vital Signs Temp 98.0 F 10/07/16 07:23 Pulse 59 10/07/16 07:23 Resp 14 10/07/16 07:23 BP 163/71 10/07/16 07:23 Pulse Ox 99 10/07/16 07:23 H&P (including ROS) documented in medical record: Yes Previous reaction to sedatives/anesthetics: No Dietary Status: NPO after Midnight Airway Assessment: Patient can open mouth completely, TMJ function normal ASA Classification *see protocol: CLASS II-Mild systemic disease Plan of Care: Pt appropriate candidate for procedure/moderate/conscious sedation , Risks/benefits of procedure/sedation discussed w/ patient/family
[2016-10-07] MEDS ORDERED: *HR* Midazolam HCl 2 MG/2 ML VIAL ONE ×3 (08:12→10:56)
[2016-10-07] MEDS ORDERED: *HR* FentaNYL (PF) 100 MCG/2 ML VIAL ONE ×2 (08:12→10:20)
--- NOTE | 2016-10-07 08:30 | Event Note ---
Date of Encounter: 10/07/16 Time of Encounter: 08:00 - Cardiology Event Note Seen and examined. Denies recurrent chest pain overnight. Echocardiogram pending. Recommend LHC with possible PCI; alternatives, risks, and benefits discussed with patient, he is agreeable to proceed. Discussed and reviewed with Dr. Lowe. Further recommendations to follow based on results.
--- NOTE | 2016-10-07 08:33 | Cardiology Progress Note ---
Date of Encounter: 10/07/16 Time of Encounter: 08:28 Assessment and Plan (1) Unstable angina Current Visit: Yes Status: Acute Presentation suggestive of unstable angina. Symptoms at rest, improved with ACS therapy. Minimal troponin. Some ECGs suggests possible prior inferior infarct. We discussed options, including stress test vs LHC. Given concerning presentation, we discussed the r/b/a to the procedure. He is agreeable and wishes to proceed with a LHC. Cr improved. Plan for procedure this morning. Continue current medical therapy. Echocardiogram pending. (2) PRAVEEN (acute kidney injury) Current Visit: Yes Status: Acute Cr improved. Discussion w patient/family: The assessment and plan as outlined above was discussed with the patient and/or family members who expressed understanding and agreement. All questions were answered. Thank you for involving us in the care of your patient. Please call with any questions. Subjective Principal diagnosis: chest pain Interval history: Chest pain returned yesterday afternoon. Improved with NTG and Morphine, in addition to other ACS therapy. Reports chest pain free. Peak troponin 0.04. ECG - sinus rhythm, possible previous inferior infarction. Objective Vital Signs, Last 4 Hours Temp Pulse Resp BP Pulse Ox 10/07/16 07:23 98.0 F 59 14 163/71 99 General: Conversant, No Apparent Distress HEENT: Atraumatic, Normocephaly, Mucus Membranes Moist Neck: No JVD, Normal carotid pulses Cardiac: Reg Rate and Rhythm, Normal S1 and S2, No Murmur Lungs: Normal Breath Sounds, No Wheeze, Rales, Rhonchi Neuro: Alert and responsive, No focal deficits noted Abdomen: Soft, Non-Tender Skin: No rashes noted on visualized skin Musculoskeletal: No Chest Wall Tenderness Extremities: No Clubbing, No Cyanosis, No Edema Results 10/07/16 03:33 10/07/16 03:33 Lab Results 10/06/16 10/06/16 10/06/16 11:22 13:47 13:47 WBC 5.3 Hgb 12.6 L Hct 41.1 Plt Count 242 APTT 25.3 L Sodium Potassium Chloride Carbon Dioxide BUN Creatinine Glucose Calcium Troponin I 0.04 H* 10/06/16 10/06/16 10/07/16 19:44 19:44 03:33 WBC 4.9 Hgb 11.3 L Hct 36.9 L Plt Count 190 APTT 41.4 H D Sodium Potassium Chloride Carbon Dioxide BUN Creatinine Glucose Calcium Troponin I 0.03 10/07/16 10/07/16 03:33 03:33 WBC Hgb Hct Plt Count APTT 51.6 H Sodium 138 Potassium 4.0 Chloride 104 Carbon Dioxide 25 BUN 19 Creatinine 1.21 Glucose 94 Calcium 8.9 Troponin I - Imaging and Cardiology Echo: pending - EKG Interpretation EKG results cardiology: personally reviewed Consult Discharge Plan - Plan [facility]: [facility] [Primary Care Provider[facility] -
--- NOTE | 2016-10-07 08:55 | ECHO - Doppler Report ---
Echocardiogram Name: Bebeto Pagan Date of Study: 10/06/2016 Date: 1935 Ht: 71.0 in Medical Record#: [id number] Age: 81 Wt: 228.0 lb Gender: Male BSA: 2.23 Order #: [id number] Location: [facility] Room #: 3B36 Reading Physician: Leora Hill DO Supervising Producer: Neelima Vásquez RDCS Ordering Physician: Reji Skinner MD Primary Physician: [facility] Indications: Chest pain Impressions: LVEF 60%. Normal left ventricular size and systolic function. There is evidence of mild diastolic dysfunction of the left ventricle. Normal right ventricular size and function. No significant valvular dysfunction. No pulmonary hypertension. Left Ventricular Wall Motion: Rest Echo Findings All wall segments showed normal motion. Findings: Study Quality * Technically adequate exam. ECG Findings * Normal sinus rhythm. Left Ventricle * LVEF 60%. * Normal LV chamber size, wall thickness and function. * Mild left ventricular diastolic dysfunction. Left Atrium * Normal left atrial size. Mitral Valve * Normal mitral valve structure. * No mitral stenosis. * Trace mitral regurgitation. Aorta * Normally sized aortic root. Aortic Valve * Trileaflet aortic valve. * Normal aortic valve structure. * No aortic stenosis. * Trace aortic regurgitation. Tricuspid Valve * Tricuspid valve not well visualized. * No tricuspid regurgitation. Pulmonic Valve * Pulmonic valve is not well visualized. * No pulmonic stenosis. * Trace pulmonic regurgitation. Pulmonary Artery * Pulmonary artery not well visualized. Right Atrium * Normal right atrial size. Right Ventricle * Normal right ventricular structure and function. Interatrial Septum * Interatrial septum not well evaluated. Pericardium * There is no pericardial effusion present. IVC * The IVC is not well evaluated. History Hypertension Family History of CAD Measurements: BP: 187/ 91 2D Normal Values IVSd: 1.04 cm 0.6 - 1.0 cm LVIDd: 4.50 cm 3.7 - 5.6 cm LVPWd: 1.08 cm 0.6 - 1.1 cm LVIDs: 2.66 cm 1.5 - 3.6 cm AO: 2.40 cm < 4.0 cm LA: 3.90 cm 2.0 - 4.0cm %FS: 52.00 cm >25 % LA volume: 68 Mitral Valve Peak E:.66 m/sec Peak E' Lat Lamont:10 cm/s Peak E' Med Lamont:7.83 cm/s E/E' Lat Ratio:6.6 E/E' Med Ratio:8.4 Aortic Valve AI pressure Half-time: 650.00 msec Tricuspid Valve TV Regurg Peak Grad: 8.00mmHg TV Regurg Peak Lamont: 1.38m/sec Updated by Leora Hill on 10/07/2016 8:51:03 AM electronically signed on 10/07/2016 8:51:32 AM with status of Final Wall Motion Robertson: 1=Normal, 2=Hypokinesis, 3=Akinesis, 4=Dyskinesis, 5=Aneurysmal, 6=Hyperkinetic, X=Not Visualized (Blank)=Missing
--- NOTE | 2016-10-07 11:23 | Invasive Diagnostic Lab Proc ---
Name: Bebeto Pagan Date of Study: 10/07/2016 Date: 1935 Ht: 70.9in Medical Record#: [id number] Age: 81 Wt: 229.28lb Gender: Male BSA: 2.23 Order #: [id number] BMI: 32.1 Physicians Procedure Physician: Danny Napier MD, [facility] Referring MD: [facility] Referring MD: Staff Name Position Time In Jo Ann Bullock RT Scrub 10:41 AM Arabella Hoskins RN Tobacco Warehouse Manager 10:41 AM Corina Marroquin RN Monitor 10:41 AM Indications Indication Non-Stemi Unstable Angina Procedures Performed Procedure L HRT ARTERY/VENTRICLE ANGIO Pre-Procedure Checklist Informed consent is complete signed and on chart. H\\T\\P is on chart. ID band is on and ID verified with patient. Patient NPO for procedure The procedure was described for the patient and questions were answered. Blood Pressure: 163/71 ECG is on chart. Rhythm: NSR Plan of Care Patient will tolerate the procedure without complications. Adequate level of comfort will be maintained. Hemodynamics will remain stable Patient will recover from procedure without complications. Respiratory function will be maintained. Cardiac rhythm will remain stable. Patient temperature will be maintained. Patient and/or family have verbalized understanding of the procedure. Patient Education Chief Complaint/Reason for Test: Cardiac Cath Developmental Category: Geriatric (65+ years) Developmentally Appropriate for Age: Yes Learning Barriers: None Education Needs: Procedure Education Method: Verbal Information Taught: Cardiac Cath Educational Evaluation: Able to repeat information Intravenous Access Time IV Size Location DC'd Fluid/Drip Rate Units RN 08:01 AM 18g 1 07/07" Patent On Arrival Rt Antecubital 0.9NaCl 25 ml/hr Alvino Covarrubias RN Allergies Penicillins Vital Signs Time BP (mmHg) HR (bpm) O2 Sat. RR (bpm) LOC 08:01 AM 163 / 71 59 99 % 14 5 = Fully awake and oriented or at pre-proc level 10:40 AM / % 5 = Fully awake and oriented or at pre-proc level 10:40 AM / % 4 = Oriented but drowsy 10:55 AM / % 4 = Oriented but drowsy 10:41 AM 160 / 74 50 100 % 7 10:46 AM 119 / 66 59 100 % 15 10:51 AM 119 / 65 58 100 % 12 10:56 AM 111 / 57 67 97 % 14 11:01 AM 128 / 65 64 95 % 15 11:06 AM 128 / 52 64 96 % 15 Procedural Medications Time Medication Dose Units Method Given By 10:40 AM Oxygen 2 L/min nasal cannula Arabella Hoskins RN 10:42 AM Versed 2 mg Intravenous Arabella Hoskins RN 10:42 AM Fentanyl 50 mcg Intravenous Arabella Hoskins RN 10:51 AM Lidocaine 2% 0.5 ml Subcutaneous Danny Napier MD, FACC 10:53 AM Heparin 4000 units Nitroglycerin 200 mcg Verapamil 2.5 mg Intraarterial Danny Napier MD, FACC 10:42 AM Oxygen 2 L/min nasal cannula Arabella Hoskins RN 10:57 AM Versed 1 mg Intravenous Arabella Hoskins RN 10:57 AM Fentanyl 25 mcg Intravenous Arabella Hoskins RN ASA Classification: CLASS II- Mild systemic disease (i.e. well-controlled diabetes, hypertension, asthma, cigarette smoking) Lacey Score Preprocedure Postprocedure Activity 2- Moves 4 extremities sustained head lift Activity 2- Moves 4 extremities sustained head lift Circulation 2- SBP +/= 20 points of pre-anesthetic level Circulation 2- SBP +/= 20 points of pre-anesthetic level Consciousness 2- Awake and alert oriented x 3 Consciousness 2- Awake and alert oriented x 3 O2 Saturation 2- Able to maintain O2 satruation of 92% on room air O2 Saturation 2- Able to maintain O2 satruation of 92% on room air Respiratory 2- Able to deep breathe and cough well Respiratory 2- Able to deep breathe and cough well Total Score 10 Total Score 10 Contrast Agent: Isovue Diagnostic Contrast: 60 ml Total Contrast: 60 ml Fluoro Dose: 285 mGy Procedure Log Time Note Enter By 07:55 AM CathStat 10:39 AM Pt arrived to bottle label inspector 2 at 10:39 [email or web address] 10:39 AM Patient charges- Angio tray pack, Navilyst 3mm J, Pulse Oximetry and ACIST tubing and transducer csmith 10:39 AM Case Delayed No, Inpatient csmith 10:39 AM Physician arrived 10:39 csmith 10:39 AM ASA Class CLASS II- Mild systemic disease (i.e. well-controlled diabetes, hypertension, asthma, cigarette smoking) csmith 10:39 AM Meet and greet completed csmith 10:39 AM Sign in performed according to hospital policy. csmith 10:40 AM Procedure start 10:40 csmith 10:40 AM Time: 10:40 Oxygen on at 2 L/min per nasal cannula by Arabella Hoskins RN csmith 10:40 AM Time: 10:40 Patient comfortable and pain free: Yes csmith 10:40 AM Case Start 10:40 AM Time: 10:40LOC: 5 = Fully awake and oriented or at pre-proc level csmith 10:40 AM Vitals capture started with the following parameters, Patient=Adult, Interval=5 min, Initial Qagacnkl=011 mmHg, Deflation Rate=5 mmHg, Cuff placed on Left Arm 10:41 AM Jo Ann Bullock RT Position: Scrub Time in: : csmith 10:41 AM Arabella Hoskins RN Position: Tobacco Warehouse Manager Time in: : csmith 10:41 AM Corina Marroquin RN Position: Monitor Time in: : [facility] 10:41 AM Clinical Presentation: Unstable angina scoates 10:41 AM HR=50 bpm, AGDQ=154/74 mmhg, BrP5=661.0 %, Resp=7 B/min, Comment=sb 10:42 AM Time: 10:42 Oxygen on at 2 L/min per nasal cannula by Arabella Hoskins RN twilson 10:42 AM Time: 10:42 Versed 2 mg Intravenous Given by Arabella Hoskins RN scoates 10:42 AM Time: 10:42 Fentanyl 50 mcg Intravenous Given by Arabella Hoskins RN scoates 10:45 AM Recorded ECG: HR=57 Condition=Condition 1 10:46 AM HR=59 bpm, NQET=307/66 mmhg, ShZ4=994.0 %, Resp=15 B/min 10:48 AM Hair removed from procedure site in procedure lab using clippers. Right wrist prepped with Chloraprep by Aleja Bowers (R), safety strap applied then patient was draped. Skin intact. twilson 10:48 AM Hair removed from procedure site in procedure lab using clippers. Right groin prepped with Chloraprep by Aleja Bowers (R), safety strap applied then patient was draped. Skin intact. twilson 10:51 AM HR=58 bpm, UWFD=649/65 mmhg, WmF0=156.0 %, Resp=12 B/min 10:51 AM Time out performed according to hospital policy twilson 10:53 AM Time: 10:51 0.5 ml Lidocaine 2% to right radial Subcutaneous Given by Danny Napier MD, [facility] twilson 10:53 AM Access obtained by percutaneous puncture. 6Fr 10cm Terumo Glidesheath sheath placed in right Radial artery. [id number] twilson 10:53 AM Time: 10:53 Patient given 4,000 units Heparin, 200 mcg Nitroglycerin, and 2.5 mg Verapamil Intraarterial by Danny Napier MD, [facility] twilson 10:54 AM Pressure channel 1 zeroed. 10:55 AM Time: 10:40 Patient comfortable and pain free: Yes twilson 10:55 AM Time: 10:40LOC: 4 = Oriented but drowsy twilson 10:56 AM Pressure channel 1 zero failed. 10:56 AM HR=67 bpm, QPNK=004/57 mmhg, SpO2=97.0 %, Resp=14 B/min 10:56 AM 5Fr FR 4 catheter inserted over the wire DN twilson 10:56 AM Pressure channel 1 zeroed. 10:57 AM Wire removed, intact. twilson 10:57 AM Time: 10:57 Versed 1 mg Intravenous Given by Arabella Hoskins RN twilson 10:57 AM Time: 10:57 Fentanyl 25 mcg Intravenous Given by Arabella Hoskins RN twilson 10:58 AM RCA angiography performed in multiple views. twilson 10:58 AM Recorded Pressure: Ao, HR=61, Condition=Condition 1 (Aorta) Ao 95/61/77 10:58 AM Wire reinserted. twilson 10:59 AM Catheter removed twilson 10:59 AM Lesion found in Proximal RCA. Pre Stenosis: 70 Pre ANGELIQUE Flow: 3: Complete and Brisk Flow/Perfusion twilson 10:59 AM Lesion found in Mid RCA. Pre Stenosis: 90 Pre ANGELIQUE Flow: 3: Complete and Brisk Flow/Perfusion twilson 10:59 AM Lesion found in Distal RCA. Pre Stenosis: 80 Pre ANGELIQUE Flow: 3: Complete and Brisk Flow/Perfusion twilson 10:59 AM Right Coronary, Right Posterior Descending Arteries with Right Posterolateral and Acute Marginal branches with 90 % stenosis. If graft is supplying this area, 0 % stenosis twilson 10:59 AM Coronary Dominance: right twilson 11:00 AM 5Fr FL3.5 catheter inserted over the wire DN twilson 11:00 AM Wire removed, intact. twilson 11:00 AM Recorded Pressure: Ao, HR=64, Condition=Condition 1 (Aorta) Ao 113/69/89 11:00 AM LCA angiography performed in multiple views. twilson 11: AM Physician reviewing films twilson 11: AM Cardiothoracic surgeon consulted by physician twilson 11:01 AM HR=64 bpm, WMVB=510/65 mmhg, SpO2=95.0 %, Resp=15 B/min 11:02 AM Lesion found in Proximal LAD. Pre Stenosis: 70 Pre ANGELIQUE Flow: 3: Complete and Brisk Flow/Perfusion twilson 11:02 AM Lesion found in Mid LAD. Pre Stenosis: 50 Pre ANGELIQUE Flow: 3: Complete and Brisk Flow/Perfusion twilson 11:02 AM Proximal Left Anterior Descending Coronary Artery with 70% stenosis. If graft is supplying this territory, 0 % stenosis. twilson 11:03 AM Lesion found in 1st Marginal. Pre Stenosis: 70 Pre ANGELIQUE Flow: 3: Complete and Brisk Flow/Perfusion twilson 11:04 AM Recorded Pressure: Ao, HR=63, Condition=Condition 1 (Aorta) Ao 115/64/87 11:04 AM Wire reinserted. twilson 11:04 AM Mid/Distal Left Anterior Descending Coronary Artery and diagonal branches with 50% stenosis. If graft is supplying this area, 0 % stenosis twilson 11:04 AM Catheter removed twilson 11:05 AM 5Fr Pigtail catheter inserted over the wire [facility] twilson 11:05 AM Catheter selectively placed in left ventricle twilson 11:05 AM Wire removed, intact. twilson 11:06 AM Recorded Pressure: LV, HR=65, Condition=Condition 1 (Left Ventricle) LV 116/3/17 11:06 AM Bolus angiogram of left Ventricle complete: 10 ml/sec for a total of 30 mls twilson 11:06 AM HR=64 bpm, BHXW=955/52 mmhg, SpO2=96.0 %, Resp=15 B/min 11:06 AM Recorded Pressure: LV, Ao, HR=61, Condition=Condition 1 (Left Ventricle) LV 129/4/22, (Aorta) Ao 110/32/76 11:06 AM Catheter removed twilson 11:07 AM Procedure completed at 11:07 twilson 11:07 AM Sign out completed: Radiation Dose 285.26 mGy Fluoro Time: 2.5 Isovue 370 - 200ml contrast 60 ml given by Danny Napier MD, [facility]. Complications: NoneCardiac Rehab Consult needed: YesConfirmed administered medications: Yes twilson 11:08 AM Isovue 370 - 200ml,1 Bottle(s) used. twilson 11:08 AM Arterial sheath pulled, Vasc Band closure device used and was Successful S/N. twilson 11:08 AM 11 ml air in Vasc Band. twilson 11:08 AM Post ECG NSR twilson 11:08 AM Post Blood Pressure 128/52 twilson 11:08 AM 11:08 Post Pulses Bilateral DP \\T\\ PT 2+ twilson 11:08 AM Information taught Cardiac Cath and Vasc Band twilson 11:09 AM Education needs Procedure, Plan of Care, and Responsibilities of Patient in Care twilson 11:10 AM Learning barriers :None twilson 11:10 AM Education Methods Verbal twilson 11:10 AM Education evaluation Able to repeat information twilson 11:10 AM Site status No bleeding/hematoma - Rt Wrist as reported by Jo Ann Bullock RT at 11:10 twilson 11:10 AM Time: 10:55LOC: 4 = Oriented but drowsy twilson 11:10 AM Time: 10:55 Patient comfortable and pain free: Yes twilson 11:10 AM Family placed in consult room. twilson 11:10 AM Delay to floor No twilson 11:[address] Chicas about consult. twilson 11:17 AM Report given to Soha COWART Pt taken to 3B Room #36. 11:14 twilson 11:17 AM Patient out of room: 11:17 twilson Complications Complication None Hemodynamics Pressures Site Systolic/A Wave Diastolic/V Wave Mean AO 95 61 77 AO 113 69 89 AO 115 64 87 LV 116 3 17 LV 129 4 22 AO 110 32 76 Post Procedure Information Blood Pressure: 128/52 mmHg Rhythm: NSR Post procedural instructions were given Surgery consult for CABG Closure Device Time Device Success/Fail 10/07/2016 11:07:00 AM Mechanical Compression Successful Site Checks Time Location Status Staff Sheath In? Note 11:10 AM Rt Wrist No bleeding/hematoma Jo Ann Bullock RT Pulses Time Site Pre-Procedure Post-Procedure Note 10/07/2016 8:01:00 AM Bilateral DP \\T\\ PT 2+ 11:08:00 AM Bilateral DP \\T\\ PT 2+ Updated by Alvino Covarrubias RN on 10/07/2016 11:19:35 AM electronically signed on 10/07/2016 11:20:30 AM with status of Final
--- NOTE | 2016-10-07 12:54 | Cardiothoracic Consult Note ---
Date of Encounter: 10/07/16 Time of Encounter: 12:50 Assessment and Plan (1) Elevated troponin Current Visit: Yes Status: Acute The assessment and plan as outlined above was discussed with the patient and/or family members who expressed understanding and agreement. All questions were answered. The patient has preserved ventricular function with triple vessel disease. He is a candidate for coronary artery bypass grafting. [facility] I will check a carotid duplex as he had an episode in the past that sounded like a TIA with speech difficulty. We will make sure that his creatinine remains stable after he received diet today. Risks of surgery include , infection, stroke, bleeding, myocardial infarction, clots around the heart, renal or respiratory failure, acute or chronic graft closure, phrenic nerve injury and sternal dehiscence. The procedure, its risks benefits and alternatives were explained and he will consider. At this point he is still undecided. - History of Present Illness History of present illness: Mr. Pagan is a 81 year old male History of present illness. Patient is an 81-year-old gentleman who presented with chest pain going into both arms. Troponins were positive at 0.04. Echocardiogram revealed good ventricular function with an ejection fraction of 60%. No significant valvular disease. Cardiac catheterization revealed good ventricular function with triple vessel disease. The LAD was 70%. The circumflex was 70%. The right coronary artery is 90%. He is presently chest pain free on a heparin drip. CT scan of the chest revealed bilateral less than 5 mm pulmonary nodules. There was mild narrowing at the origin of the left subclavian artery. There was atherosclerotic disease of the transverse arch. Past medical history is notable for hypertension. No history of diabetes although his hemoglobin A1c on admission was 5.9. No history of hypercholesterolemia. He is allergic to the penicillins. Medications include a heparin drip. Social history. He lives in [place] with his . He is a of the [employer]. He is retired, but used to work at [employer]. He used to smoke but quit in 1970. He rarely drinks alcohol. Family history is positive for coronary artery disease. Review of systems is negative for saphenous vein varicosities or strippings. Past Med Surg Social Fam HX - Past Medical History Medical history: hypertension Psychiatric history: no psych history - Social History Smoking Status: Former smoker Smokeless Tobacco Status: No Alcohol use: rarely Drug use: none - Family History Father Living Status: Hx Family Cardiac Disorders: Yes ( late 70's [place]) Mother Living Status: Cause of : Cancer Medications and Allergies Acetaminophen [Tylenol] 650 mg PO TID PRN 10/06/16 [History] Aspirin [Lo-Dose Aspirin EC] 81 mg PO DAILY 10/06/16 [History] CloNIDine HCl 0.1 mg PO BID 10/06/16 [History] Losartan Potassium [Cozaar] 50 mg PO DAILY 10/06/16 [History] Meclizine [Antivert] 12.5 mg PO TID PRN 10/06/16 [History] Allergies Penicillins Allergy (Verified 10/06/16 05:26) Anaphylaxis All Systems Review: A 10-system review of systems was performed and is negative for pertinent findings except as documented above in the HPI. Physical Examination Vital Signs, Last 4 Hours Temp Pulse Resp BP Pulse Ox 10/07/16 11:36 97.5 F L 50 18 123/61 98 Pupils are equal, round and reactive to light and accommodation. He is edentulous. Neck is supple. Trachea in the midline. No thyromegaly or carotid bruits. Lungs are clear to percussion and auscultation. Heart is in a regular rate and rhythm. No murmurs, gallops or rubs. Abdomen is benign. No tenderness, rebound or guarding. No hepatosplenomegaly or masses. Extremities without edema. No saphenous vein varicosities or strippings. Cranial nerves, motor and sensory intact. He is awake, alert and oriented 3. Results 10/07/16 03:33 10/07/16 03:33 Lab Results, Last 24 hours 10/06/16 10/06/16 10/06/16 13:47 13:47 19:44 WBC 5.3 Hgb 12.6 L Hct 41.1 Plt Count 242 APTT 25.3 L Sodium Potassium Chloride Carbon Dioxide BUN Creatinine Glucose Calcium Troponin I 0.03 10/06/16 10/07/16 10/07/16 19:44 03:33 03:33 WBC 4.9 Hgb 11.3 L Hct 36.9 L Plt Count 190 APTT 41.4 H D Sodium 138 Potassium 4.0 Chloride 104 Carbon Dioxide 25 BUN 19 Creatinine 1.21 Glucose 94 Calcium 8.9 Troponin I 10/07/16 10/07/16 03:33 11:29 WBC Hgb Hct Plt Count APTT 51.6 H 68.7 H Sodium Potassium Chloride Carbon Dioxide BUN Creatinine Glucose Calcium Troponin I Consult Discharge Plan - Plan [facility]errals: [facility] [Primary Care Provider] -
--- NOTE | 2016-10-07 13:04 | Invasive Diagnostic Lab ---
Name: Bbeeto Pagan Date of Study: 10/07/2016 Date: 1935 Ht: 180.0 cm /70.9 in Medical Record#: [id number] Age: 81 Wt: 104. kg / 229.28 lb Account/Order#: [id number] Gender: Male BSA: 2.23 Order #: [id number] Fluoro Dose: 285 mGy BMI: 32.1 Procedure Physician: Danny Napier MD, FACC Referring MD: [facility] Referring MD: Procedures Performed: LEFT HEART CATH Indications: Non-Stemi, Unstable Angina Impressions: There is severe three vessel coronary artery disease. The left ventricle is normal and has normal contractility EF 65% Recommendations: Optimal medical therapy of patient's disease. Aggressive risk factor modification. Suggest patient have Elective coronary artery bypass surgery. History/Risk Factors: HTN Unstable angina Ex-smoker Family hx cardiac dx Procedure Access obtained in the right Radial artery by percutaneous puncture Complications: None Contrast: Isovue 60ml Closure Device: Mechanical Compression Hemodynamics: Pressures Site Systolic/ A Wave Diastolic/ V Wave End Diastolic/ Mean HR AO 95 61 77 61 AO 113 69 89 64 AO 115 64 87 63 LV 116 3 17 65 LV 129 4 22 60 AO 110 32 76 61 LV Ventriculography Ejection Method: LV Gram Ejection Fraction: 65% Wall Motion: IBRAHIM Anterobasal Normal Anterolateral Normal Apical: Normal Inferoapical Normal Inferobasal Normal Coronary Dominance: right Lesion Findings/Interventions * Left Main Coronary Artery The LMCA is angiographically free of disease. * Left Anterior Descending There is a long 60-70% stenosis in the Proximal-mid LAD. The lesion has a ANGELIQUE flow of 3. There is a 50% stenosis in the Mid LAD. The lesion has a ANGELIQUE flow of 3. * Circumflex There is a long 70% stenosis in the major OM. The lesion has a ANGELIQUE flow of 3. * Right Coronary Artery There is a 70% stenosis in the Proximal RCA. The lesion has a ANGELIQUE flow of 3. There is a 90% stenosis in the Mid RCA. The lesion has a ANGELIQUE flow of 3. There is a 80% stenosis in the Distal RCA. The lesion has a ANGELIQUE flow of 3. Updated by Alvino Covarrubias RN on 10/07/2016 11:18:40 AM Danny Napier MD, FACC electronically signed on 10/07/2016 12:58:40 PM with status of Final
[2016-10-07] MEDS: Aspirin Enteric Coated 81 MG Tablet PO SCH (13:18)
--- NOTE | 2016-10-07 13:19 | Internal Med Progress Note ---
Date of Encounter: 10/07/16 Time of Encounter: 13:17 - Assessment and plan (1) CAD (coronary artery disease) Current Visit: Yes Status: Acute Assessment and plan: Patient presented with typical cp symptoms, troponins adynamic at 0.03, 0.04, 0.03 ECHO 10/06/16: LVEF 60%, normal LV size and systolic function, mild diastolic LV dysfunction, normal RV size and function, no significant valvular dysfucntion, no pulmonary htn. C 10/07/16: good ventricular function with triple vessel disease. The LAD was 70 %. The circumflex was 70%. The right coronary artery is 90%. Per CT surgery he is a candidate for CABG. The patient would like to proceed with the procedure darren. Dr. Chicas is discussing with Dr. Silveira when it can be scheduled Plan: -Continue heparin gtt -May eat tonight -NPO at midnight -tele -Continue BB, statin Qualifiers: Coronary Disease-Associated Artery/Lesion type: [place] artery [place] vs. transplanted heart: quechan heart Associated angina: with unstable angina Qualified Code(s): I25.110 - Atherosclerotic heart disease of [place]chan coronary artery with unstable angina pectoris (2) Unstable angina Current Visit: Yes Status: Acute Assessment and plan: per above plan (3) PRAVEEN (acute kidney injury) Current Visit: Yes Status: Acute Assessment and plan: SCr improved to 1.21 Renal US: 3.2 cm left renal cyst, no hydronephrosis or intrarenal stones noted. Right kidney 10.47cm, left kidney 11.07cm. Enlargment of prostate. Plan: -Continue to monitor SCr after dye administration with [facility] -Continue to avoid nephrotoxins (4) Hypertension Current Visit: Yes Status: Chronic Assessment and plan: Stable, continue to monitor. Qualifiers: Hypertension type: essential hypertension Qualified Code(s): I10 - Essential (primary) hypertension (5) Lung nodule Current Visit: Yes Status: Acute Assessment and plan: Incidental CTA finding, bilateral in right middle lobe and left upper lobe, both 4mm nodules High risk due to history of smoking Plan: -f/u with pulmonology as an outpatient. (6) DVT prophylaxis Current Visit: Yes Status: Acute Assessment and plan: Patient on heparin gtt - Subjective Interval history: Patient seen and examined post [facility]. He denies any CP, SOB or any other complaints currently. He does mention that Dr. Chicas has already spoken with him and they would like to proceed with CABG darren. He states he is a [facility] patient and is not sure how that will affect things. - Constitutional Vitals: Temp Pulse Resp BP Pulse Ox 97.5 F L 50 18 123/61 98 10/07/16 11:36 10/07/16 11:36 10/07/16 11:36 10/07/16 11:36 10/07/16 11:36 General appearance: Present: cooperative, A&O X 3, pleasant, no acute distress, answers questions appropriately - Head Head exam: Present: atraumatic, normocephalic - Eye Eye exam: Present: EOMI, normal appearance, PERRL, conjuntiva pink, sclera anicteric Pupils: Present: PERRL - Neck Neck exam general surgery: Present: supple, trachea midline. Absent: lymphadenopathy - Respiratory Respiratory exam: Present: CTAB. Absent: accessory muscle use, rales, rhonchi, wheezes - Cardiovascular Cardiovascular exam: Present: RRR, +S1, +S2. Absent: diastolic murmur, gallop, rubs, systolic murmur - GI/Abdominal GI/Abdominal exam: Present: normal bowel sounds, soft, no peritoneal signs. Absent: distended, tenderness - Extremities Exam Extremities exam: Present: normal capillary refill, normal inspection, warm, radial pulses palpable and symetrical. Absent: calf tenderness, cyanotic, pedal edema, tenderness - Neurological Exam Neurological exam: Present: alert, oriented X3, no focal deficits. Absent: pronater drift, facial droop, speech deficit - Psychiatric Psychiatric exam: Present: normal affect, normal mood - Skin Skin exam: Present: dry, intact. Absent: diaphoretic Internal Medicine: Result - Labs CBC & Chem 7: 10/07/16 03:33 10/07/16 03:33 Labs: Short CBC 10/06/16 10/07/16 Range/Units 13:47 03:33 WBC 5.3 4.9 (4.3-11.1) K/mcL Hgb 12.6 L 11.3 L (12.9-16.9) g/dL Hct 41.1 36.9 L (37.5-50.1) % Plt Count 242 190 (140-400) K/mcL Neutrophils # 2.7 (1.6-8.9) K/mcL BMP 10/07/16 03:33 Sodium 138 Potassium 4.0 Chloride 104 Carbon Dioxide 25 BUN 19 Creatinine 1.21 Glucose 94 Calcium 8.9 Cardiac Enzymes 10/06/16 Range/Units 19:44 Troponin I 0.03 (0-0.03) ng/mL - ABG Interpretation ABG results: PT/INR, D-dimer PT 10.9 Seconds (9.4-12.1) 10/06/16 05:36 - Impressions Impressions Retroperitoneum Ultrasound 10/06/16 17:00 IMPRESSION: There is a 3.2 cm left renal cyst. Kidneys are otherwise unremarkable with no evidence of hydronephrosis. The prostate gland is enlarged. Moderate to large postvoid residual. D/ / Sam Jovel MD / Sam Jovel MD Interpreting Provider: Sam Jovel MD Consult Discharge Plan - Plan Referrals: [facility] [Primary Care Provider] -
--- NOTE | 2016-10-07 13:24 | Electrocardiograph Report ---
[address] [place] [address] Test Date: 2016-10-06 Pat Name: Bebeto Pagan Department: 104 Room: 3B36 Gender: M Talent Agent: : [id number] Requested By: Renay Hsu Order Number: [id number] Reading MD: Danny Napier MD Measurements Intervals Moro Rate: 69 P: 22 MS: 163 QRS: -7 QRSD: 95 T: 5 QT: 395 QTc: 414 Interpretive Statements SINUS RHYTHM WITH OCCASIONAL VENTRICULAR PREMATURE COMPLEXES INFERIOR MYOCARDIAL INFARCTION, PROBABLY OLD Electronically Signed On 10-07-2016 13:22:12 EDT by Danny Napier MD
[2016-10-07] MEDS ORDERED: *HR* Heparin 5,000 UNIT/ML VIAL IVP PRN (21:52)
[2016-10-07] MEDS ORDERED: *HR* Heparin 5,000 UNIT/ML VIAL IVP ONE (21:52)
[2016-10-07 22:19] LABS: Hematocrit 36.9 % (37.5-50.1); Hemoglobin 11.5 g/dL (12.9-16.9); Mean Corpuscular HGB Conc 31.2 g/dL (31.6-35.5); Mean Corpuscular Hemoglobin 23.4 pg (28.0-33.3); Mean Corpuscular Volume 75.2 fL (83.0-100.0); Mean Platelet Volume 9.7 fL (9.4-12.4); Platelet Count 198 K/mcL (140-400); Red Blood Count 4.91 M/mcL (4.19-5.50); Red Cell Distribution Width 15.4 % (11.5-14.5)
[2016-10-07] MEDS: Heparin 25,000 UNIT/500 ML D5W 25,000 UNIT/500 ML MLS IVC SCH (22:29)
[2016-10-07 22:31] LABS: INR 1.1; Prothrombin Time 11.8 Seconds (9.4-12.1)
[2016-10-07 22:35] LABS: Activated Partial Thrombo Time 27.6 Seconds (26.0-36.0)
[2016-10-08 04:11] LABS: Basophils % 0.7 %; Eosinophils # 0.2 K/mcL (0.0-0.6); Eosinophils % 4.2 %; Hematocrit 37.6 % (37.5-50.1); Hemoglobin 11.8 g/dL (12.9-16.9); Lymphocytes # 1.2 K/mcL (0.6-4.6); Lymphocytes % 21.4 %; Mean Corpuscular HGB Conc 31.4 g/dL (31.6-35.5); Mean Corpuscular Hemoglobin 23.6 pg (28.0-33.3); Mean Corpuscular Volume 75.2 fL (83.0-100.0); Monocytes # 0.4 K/mcL (0.0-1.3); Monocytes % 7.8 %; Neutrophils # 3.6 K/mcL (1.6-8.9); Platelet Count 211 K/mcL (140-400); Red Cell Distribution Width 15.4 % (11.5-14.5); Segmented Neutrophils % 65.9 %
[2016-10-08 04:28] LABS: % Iron Saturation 9 % (20-55); BUN/Creatinine Ratio 11 (6-26); Blood Urea Nitrogen 15 mg/dL (8-26); Calcium 9.2 mg/dL (8.6-10.8); Carbon Dioxide 27 mEq/L (19-29); Chloride 104 mEq/L (98-109); Glucose 103 mg/dL (70-99); Iron 38 mcg/dL (65-175); Osmolality,Calculated 287 (280-300); Potassium 4.2 mEq/L (3.5-4.5); Sodium 138 mEq/L (136-145); Transferrin 314 mg/dL (174-364); eGFR For African Americans > 60 (> 60); eGFR For Non-African Americans 50 (> 60)
[2016-10-08] MEDS: *HR* Heparin 5,000 UNIT/ML VIAL IVP PRN (04:28)
[2016-10-08 04:48] LABS: Ferritin 18 ng/ml (22-275)
[2016-10-08] MEDS: Aspirin Enteric Coated 81 MG Tablet PO SCH (08:04)
--- NOTE | 2016-10-08 08:40 | Internal Med Progress Note ---
<Maru Reyes - Last Filed: 10/08/16 12:09> Date of Encounter: 10/08/16 Time of Encounter: 08:36 - Assessment and plan (1) CAD (coronary artery disease) Current Visit: Yes Status: Acute Assessment and plan: Patient presented with typical cp symptoms, troponins adynamic at 0.03, 0.04, 0.03 ECHO 10/06/16: LVEF 60%, normal LV size and systolic function, mild diastolic LV dysfunction, normal RV size and function, no significant valvular dysfucntion, no pulmonary htn. LHC 10/07/16: good ventricular function with triple vessel disease. The LAD was 70 %. The circumflex was 70%. The right coronary artery is 90%. Per CT surgery he is a candidate for CABG. The patient would like to proceed with the procedure darren. CABG scheduled with Dr. Silveira for Wednesday 10/11. Plan: -Continue heparin gtt -Cardiac diet -tele -Continue BB, statin Qualifiers: Coronary Disease-Associated Artery/Lesion type: [place] artery [place] vs. transplanted heart: [place] heart Associated angina: with unstable angina Qualified Code(s): I25.110 - Atherosclerotic heart disease of [place] coronary artery with unstable angina pectoris (2) Unstable angina Current Visit: Yes Status: Acute Assessment and plan: per above plan (3) PRAVEEN (acute kidney injury) Current Visit: Yes Status: Acute Assessment and plan: SCr increased from 1.21 to 1.37, GFR 50 Renal US: 3.2 cm left renal cyst, no hydronephrosis or intrarenal stones noted. Right kidney 10.47cm, left kidney 11.07cm. Enlargment of prostate. Plan: -IVF @75/hr -Continue to monitor SCr after dye administration with [facility] -Continue to avoid nephrotoxins (4) Hypertension Current Visit: Yes Status: Chronic Assessment and plan: Stable, continue to monitor. Qualifiers: Hypertension type: essential hypertension Qualified Code(s): I10 - Essential (primary) hypertension (5) Lung nodule Current Visit: Yes Status: Acute Assessment and plan: Incidental CTA finding, bilateral in right middle lobe and left upper lobe, both 4mm nodules High risk due to history of smoking Plan: -f/u with pulmonology as an outpatient. (6) Iron deficiency anemia Current Visit: Yes Status: Acute Assessment and plan: Hgb 11.5, MCV 75.2 Iron 38, %saturation 9, transferrin 314, ferritin 18 Plan: -IV iron 400mg today -Will start oral iron post op -Patient will need further workup as an outpatient for source of DANA Qualifiers: Iron deficiency anemia type: other iron deficiency Qualified Code(s): D50.8 - Other iron deficiency anemias (7) DVT prophylaxis Current Visit: Yes Status: Acute Assessment and plan: Patient on heparin gtt - Subjective Interval history: Patient seen and examined. He has been up walking around his room and has not experienced any chest pain. He has some mild SOB. He denies any other complaints , but notes that he is a little anxious about the surgery. - Constitutional Vitals: Temp Pulse Resp BP Pulse Ox 98.0 F 63 17 162/69 97 10/08/16 06:59 10/08/16 06:59 10/08/16 06:59 10/08/16 06:59 10/08/16 06:59 General appearance: Present: cooperative, A&O X 3, pleasant, no acute distress, answers questions appropriately - Head Head exam: Present: atraumatic, normocephalic - Eye Eye exam: Present: PERRL, conjuntiva pink, sclera anicteric Pupils: Present: PERRL - Respiratory Respiratory exam: Present: CTAB. Absent: accessory muscle use, rales, rhonchi, wheezes - Cardiovascular Cardiovascular exam: Present: +S1, +S2. Absent: diastolic murmur, gallop, rubs , systolic murmur Additional comments: irregularly regular rhythm - GI/Abdominal GI/Abdominal exam: Present: normal bowel sounds, soft, no peritoneal signs. Absent: distended, tenderness - Extremities Exam Extremities exam: Present: normal capillary refill, normal inspection, warm, radial pulses palpable and symetrical. Absent: calf tenderness, cyanotic, pedal edema, tenderness - Neurological Exam Neurological exam: Present: alert, normal gait, oriented X3, no focal deficits, strengths equal and symetr throughout. Absent: motor sensory deficit, facial droop, speech deficit - Psychiatric Psychiatric exam: Present: normal affect, normal mood - Skin Skin exam: Present: dry, intact, normal color. Absent: diaphoretic, erythema, rash Internal Medicine: Result - Labs CBC & Chem 7: 10/08/16 04:01 10/08/16 04:01 Labs: Short CBC 10/07/16 10/08/16 Range/Units 22:06 04:01 WBC 5.3 5.5 (4.3-11.1) K/mcL Hgb 11.5 L 11.8 L (12.9-16.9) g/dL Hct 36.9 L 37.6 (37.5-50.1) % Plt Count 198 211 (140-400) K/mcL Neutrophils # 3.6 (1.6-8.9) K/mcL BMP 10/08/16 04:01 Sodium 138 Potassium 4.2 Chloride 104 Carbon Dioxide 27 BUN 15 Creatinine 1.37 H Glucose 103 H Calcium 9.2 - ABG Interpretation ABG results: PT/INR, D-dimer PT 11.8 Seconds (9.4-12.1) 10/07/16 22:06 Consult Discharge Plan - Plan [facility]errals: [facility] [Primary Care Provider[facility] - <Kraig Hernandez - Last Filed: 10/09/16 07:51> Date of Encounter: 10/09/16 - Constitutional Vitals: Temp Pulse Resp BP Pulse Ox 97.7 F 63 16 161/82 97 10/09/16 07:16 10/09/16 07:16 10/09/16 07:16 10/09/16 07:16 10/09/16 07:16 Internal Medicine: Result - Labs CBC & Chem 7: 10/08/16 04:01 10/09/16 03:36 Labs: BMP 10/09/16 03:36 Sodium 138 Potassium 3.6 Chloride 105 Carbon Dioxide 22 BUN 17 Creatinine 1.32 H Glucose 92 Calcium 9.1 - ABG Interpretation ABG results: PT/INR, D-dimer PT 11.8 Seconds (9.4-12.1) 10/07/16 22:06 - Attending Attestation Discussed with the patient need for GI evaluation once his CAD is stabalized.
[2016-10-08] MEDS ORDERED: Iron Sucrose Complex 400 MG in 0.9 % Sodium Chloride 250 ML IVPB ONE (09:38)
--- NOTE | 2016-10-08 09:52 | Cardiology Progress Note ---
Date of Encounter: 10/08/16 Time of Encounter: 09:50 Assessment and Plan (1) CAD (coronary artery disease) Current Visit: Yes Status: Acute LHC yesterday revealed severe [address] surgery consulted, CABG recommended and tentatively planned for Tuesday. Pt agreeable. On heparin gtt, ASA, Statin, BB. Echo EF 60%, mild diastolic dysfunction, no significant valvular dysfunction. Right radial access site healing well--no bleeding, hematoma or ecchymosis noted. Cardiology is signing off. Reconsult PRN. Follow-up as outpt in 4-6 weeks-will coordinate. Qualifiers: Coronary Disease-Associated Artery/Lesion type: [place] artery [place] vs. transplanted heart: [place] heart Associated angina: with unstable angina Qualified Code(s): I25.110 - Atherosclerotic heart disease of [place] coronary artery with unstable angina pectoris (2) Renal insufficiency Current Visit: Yes Status: Acute Unclear baseline. SCr upon presentation 1.56, yesterday 1.21 and today 1.37. Avoid nephrotoxins, recommend IVF. Discussion w patient/family: The assessment and plan as outlined above was discussed with the patient and/or family members who expressed understanding and agreement. All questions were answered. Thank you for involving us in the care of your patient. Please call with any questions. I will discuss all the above with Dr. Lowe and make changes as necessary. Subjective Principal diagnosis: chest pain Interval history: S/P LHC yesterday, revealed severe [address] surgery consulted. Pt denies any chest pain or dyspnea overnight. No acute complaints. Echo EF 60%, mild diastolic dysfunction. Objective Vital Signs, Last 4 Hours Temp Pulse Resp BP Pulse Ox 10/08/16 06:59 98.0 F 63 17 162/69 97 Vital Signs Temp Pulse Resp BP Pulse Ox 10/08/16 06:59 98.0 F 63 17 162/69 97 10/08/16 02:38 98.1 F 69 14 160/65 97 10/07/16 22:50 97.7 F 67 14 147/72 97 10/07/16 18:41 98 F 57 14 158/73 97 10/07/16 15:08 97.7 F 60 14 161/76 97 10/07/16 13:34 97.7 F 70 14 135/60 10/07/16 13:30 60 14 135/60 10/07/16 11:36 97.5 F L 50 18 123/61 98 Intake and Output 10/07/16 10/08/16 10/08/16 23:59 07:59 15:59 Intake Total 700 / 700 120 / 120 Output Total 400 / 400 Balance 300 / 300 120 / 120 Intake: IV Fluids 120 / 120 Heparin 25,000 UNIT/500 120 / 120 ML D5W 25,000 unit In 500 ml @ 20 mls/hr IVC .Q24H SHAMIR Rx#:[id number] Oral 700 / 700 Output: Urine 400 / 400 Other: # Voids 1 1 Weight 104.3 kg Patient Weight 10/08/16 23:59 Weight 104.3 kg General: Conversant, No Apparent Distress HEENT: Atraumatic, Normocephaly, Mucus Membranes Moist Neck: No JVD, Normal carotid pulses Cardiac: Reg Rate and Rhythm, Normal S1 and S2, No Murmur Lungs: Normal Breath Sounds, No Wheeze, Rales, Rhonchi Neuro: Alert and responsive, No focal deficits noted Abdomen: Soft, Non-Tender Skin: Other (right radial access site healing well. No bleeding, hematoma or ecchymosis noted.) Musculoskeletal: No Chest Wall Tenderness Extremities: No Clubbing, No Cyanosis, No Edema, Normal Pulses Results 10/08/16 04:01 10/08/16 04:01 Lab Results 10/07/16 10/07/16 10/07/16 11:29 22:06 22:06 WBC 5.3 Hgb 11.5 L Hct 36.9 L Plt Count 198 INR 1.1 APTT 68.7 H 27.6 D Sodium Potassium Chloride Carbon Dioxide BUN Creatinine Glucose Calcium 10/08/16 10/08/16 10/08/16 04:01 04:01 04:01 WBC 5.5 Hgb 11.8 L Hct 37.6 Plt Count 211 INR APTT 46.3 H D Sodium 138 Potassium 4.2 Chloride 104 Carbon Dioxide 27 BUN 15 Creatinine 1.37 H Glucose 103 H Calcium 9.2 Short CBC 10/08/16 10/07/16 Range/Units 04:01 22:06 WBC 5.5 5.3 (4.3-11.1) K/mcL Hgb 11.8 L 11.5 L (12.9-16.9) g/dL Hct 37.6 36.9 L (37.5-50.1) % Plt Count 211 198 (140-400) K/mcL Neutrophils # 3.6 (1.6-8.9) K/mcL BMP 10/08/16 Range/Units 04:01 Sodium 138 (136-145) mEq/L Potassium 4.2 (3.5-4.5) mEq/L Chloride 104 (98-109) mEq/L Carbon Dioxide 27 (19-29) mEq/L BUN 15 (8-26) mg/dL Creatinine 1.37 H (0.72-1.25) mg/dL Glucose 103 H (70-99) mg/dL Calcium 9.2 (8.6-10.8) mg/dL Active Medications Acetaminophen (Tylenol) 650 mg PO Q6HR PRN PRN Reason: Mild Pain (1-3) Stop: 04/07/17 11:11 Acetaminophen/Hydrocodone Bitart ([place] 5-325 Mg) 1 tab PO Q4HR PRN PRN Reason: Moderate Pain (4-6) Stop: 04/07/17 11:11 Aspirin (Aspirin Ec) 81 mg PO DAILY SHAMIR Stop: 04/08/17 09:01 Last Admin: 10/08/16 08:04 Dose: 81 mg Atorvastatin Calcium (Lipitor) 40 mg PO HS [facility] Stop: 04/07/17 21:01 Last Admin: 10/07/16 20:49 Dose: 40 mg Clonidine HCl (Clonidine Hcl) 0.1 mg PO BID SHAMIR Stop: 04/07/17 21:01 Last Admin: 10/06/16 21:03 Dose: 0.1 mg Heparin Sodium (Porcine) (Heparin) 4,000 unit IVP Q6HR PRN PRN Reason: SEE COMMENTS Stop: 04/08/17 21:53 Heparin Sodium (Porcine) (Heparin) 2,000 unit IVP Q6H PRN PRN Reason: SEE COMMENTS Stop: 04/08/17 21:53 Last Admin: 10/08/16 04:28 Dose: 2,000 unit Hydromorphone HCl (Dilaudid) 0.5 mg IVP Q4HR PRN PRN Reason: Severe Pain (7-10) Stop: 04/07/17 11:11 Heparin Sodium/Dextrose (Heparin 25,000 Unit/500 Ml D5w) 25,000 unit in 500 mls @ 20 mls/hr IVC .Q24H SHAMIR PRN Reason: Protocol Stop: 04/08/17 22:01 Last Titration: 10/08/16 04:24 Dose: 24 mls/hr, 24 mls/hr Sodium Chloride (0.9 % Sodium Chloride) 1,000 mls @ 75 mls/hr IVC .[id number] [facility] Stop: 04/09/17 08:46 Iron Sucrose 400 mg/ Sodium (Chloride) 270 mls @ 120 mls/hr IVPB ONCE ONE Stop: 10/08/16 11:52 Meclizine HCl (Antivert) 12.5 mg PO TID PRN PRN Reason: DIZZINESS Stop: 04/07/17 11:13 Metoprolol Tartrate (Lopressor) 12.5 mg PO BID SHAMIR Stop: 04/07/17 21:01 Last Admin: 10/08/16 08:04 Dose: 12.5 mg Naloxone HCl (Narcan) 0.4 mg IVP Q2MIN PRN PRN Reason: Opioid Reversal Stop: 04/07/17 11:11 Nitroglycerin (Nitroglycerin) 0.4 mg SL Q5MIN PRN PRN Reason: Chest Pain Stop: 04/07/17 13:09 Last Admin: 10/06/16 13:48 Dose: 0.4 mg - Imaging and Cardiology Echo: report reviewed Cardiac cath: report reviewed Consult Discharge Plan - Plan [facility]errals: [facility] [Primary Care Provider] -
--- NOTE | 2016-10-08 10:37 | Cardiothoracic Progress Note ---
Date of Encounter: 10/08/16 Time of Encounter: 10:31 - Assessment and plan (1) NSTEMI (non-ST elevated myocardial infarction) Current Visit: Yes Status: Acute The patient has severe 3 vessel CAD and an LVEF 65%. He also has CKD, Stage III and a history of TIA (approximately 30 years ago). He has been recommended for CABG. I concur with this recommendation. His creatinine did elevate after the cardiac catheterization and he will continue to be hydrated over the weekend. I discussed the procedure, benefits, alternatives, and risks with the patient. Based on the STS risk calculator the patient has an operative mortality of approximately 3%, deep sternal wound infection 0.6%, renal failure 8%, and stroke 3%.tentatively the patient is scheduled for CABG on Tuesday, October 11, 2016. The assessment and plan as outlined above was discussed with the patient and/or family members who expressed understanding and agreement. All questions were answered. (2) CAD (coronary artery disease) Current Visit: Yes Status: Acute The assessment and plan as outlined above was discussed with the patient and/or family members who expressed understanding and agreement. All questions were answered. Qualifiers: Coronary Disease-Associated Artery/Lesion type: [place] artery [place] vs. transplanted heart: [place] heart Associated angina: with unstable angina Qualified Code(s): I25.110 - Atherosclerotic heart disease of [place] coronary artery with unstable angina pectoris - Subjective Interval history: The patient is sitting comfortably in a chair. He has no complaints of substernal chest pain or shortness of breath. Vital Signs, Last 4 Hours Temp Pulse Resp BP Pulse Ox 10/08/16 06:59 98.0 F 63 17 162/69 97 Weight 10/06/16 10/07/16 10/08/16 23:59 23:59 23:59 Weight 103.447 kg 104.19 kg 104.3 kg - Physical Examination General: Conversant, No Apparent Distress Neck: No JVD, Normal carotid pulses Cardiac: Reg Rate and Rhythm, Normal S1 and S2, No Murmur Lungs: Normal Breath Sounds, No Wheeze, Rales, Rhonchi Neuro: Alert and responsive, No focal deficits noted Vascular: Normal capillary refill Extremities: No Clubbing, No Cyanosis, No Edema - Labs 10/08/16 04:01 10/08/16 04:01 Lab Results, Last 24 hours 10/07/16 10/07/16 10/07/16 11:29 22:06 22:06 WBC 5.3 Hgb 11.5 L Hct 36.9 L Plt Count 198 INR 1.1 APTT 68.7 H 27.6 D Sodium Potassium Chloride Carbon Dioxide BUN Creatinine Glucose Calcium 10/08/16 10/08/16 10/08/16 04:01 04:01 04:01 WBC 5.5 Hgb 11.8 L Hct 37.6 Plt Count 211 INR APTT 46.3 H D Sodium 138 Potassium 4.2 Chloride 104 Carbon Dioxide 27 BUN 15 Creatinine 1.37 H Glucose 103 H Calcium 9.2 10/08/16 09:57 WBC Hgb Hct Plt Count INR APTT 62.9 H Sodium Potassium Chloride Carbon Dioxide BUN Creatinine Glucose Calcium Consult Discharge Plan - Plan Referrals: [facility] [Primary Care Provider] -
[2016-10-08] MEDS: 0.9 % Sodium Chloride 1,000 ML IVC SCH (13:09)
--- NOTE | 2016-10-08 15:10 | Carotid Imaging Report ---
Carotid Duplex Patient Name:Bebeto Pagan Order Number:[id number] Procedure Date:10/07/2016 Date:6Age:81 yrs Gender:Male Location:[facility] Room #: 3B36 Front Attendant:Gus Page RDCS Referring MD:Quang Chicas MD test and turn up technician:[facility] David MD:Renard Peterson MD , [facility] Primary Indications:History of TIA Risk Factors Yes/No Hypertension Yes Hx of TIA Yes Impressions: Findings: Bilateral carotid system are essentially normal. Recommendations: After imaging the patient returned to their room. Findings Carotid Duplex: Right: The right proximal common carotid artery has a PSV of 96 cm/s and a EDV of 18 cm/s. The right mid common carotid artery has a PSV of 66 cm/s and a EDV of 9 cm/s. The right distal common carotid artery has a PSV of 58 cm/s and a EDV of 12 cm/s. There is nonstenotic plaque in the right bifurcation with a PSV of 73 cm/s and a EDV of 18 cm/s. There is smooth calcified plaque. The right proximal internal carotid artery has a PSV of 66 cm/s and a EDV of 18 cm/s. The right mid internal carotid artery has a PSV of 78 cm/s and a EDV of 28 cm/s. The right distal internal carotid artery has a PSV of 85 cm/s and a EDV of 23 cm/s. The right eca has a PSV of 85 cm/s and a EDV of 8 cm/s. The right vertebral artery has a PSV of 26 cm/s and a EDV of 11 cm/s. Left: The left proximal common carotid artery has a PSV of 104 cm/s and a EDV of 20 cm/s. The left mid common carotid artery has a PSV of 73 cm/s and a EDV of 16 cm/s. The left distal common carotid artery has a PSV of 80 cm/s and a EDV of 24 cm/s. There is nonstenotic plaque in the left bifurcation with a PSV of 103 cm/s and a EDV of 25 cm/s. There is smooth calcified plaque. The left proximal internal carotid artery has a PSV of 106 cm/s and a EDV of 26 cm/s. The left mid internal carotid artery has a PSV of 91 cm/s and a EDV of 29 cm/s. The left distal internal carotid artery has a PSV of 76 cm/s and a EDV of 17 cm/s. The left eca has a PSV of 80 cm/s and a EDV of 6 cm/s. The left vertebral artery has a PSV of 16 cm/s and a EDV of 6 cm/s. Prior Study: No prior study available for comparison. Carotid Results Right PSV EDV Assessment Proximal CCA 96 18 Normal Mid CCA 66 9 Normal Distal CCA 58 12 Normal Bifurcation 73 18 Non Stenotic Plaque Proximal ICA 66 18 Normal Mid ICA 78 28 Normal Distal ICA 85 23 Normal ECA 85 8 Normal Vertebral Artery 26 11 Normal Left PSV EDV Assessment Proximal CCA 104 20 Normal Mid CCA 73 16 Normal Distal CCA 80 24 Normal Bifurcation 103 25 Non Stenotic Plaque Proximal ICA 106 26 Normal Mid ICA 91 29 Normal Distal ICA 76 17 Normal ECA 80 6 Normal Vertebral Artery 16 6 Normal Ratio's Right ICA/CCA Ratio: 1.29 ICA/CCA Values: 85/66 Left ICA/CCA Ratio: 1.45 ICA/CCA Values: 106/73 Updated by Renard Peterson MD, FACS on 10/08/2016 3:02:14 PM Renard Peterson MD electronically signed on 10/08/2016 3:04:37 PM with status of Final
[2016-10-08] MEDS: Heparin 25,000 UNIT/500 ML D5W 25,000 UNIT/500 ML MLS IVC SCH (20:23)
[2016-10-09] MEDS: 0.9 % Sodium Chloride 1,000 ML IVC SCH ×2 (03:47→16:50)
[2016-10-09 04:36] LABS: BUN/Creatinine Ratio 13 (6-26); Blood Urea Nitrogen 17 mg/dL (8-26); Calcium 9.1 mg/dL (8.6-10.8); Carbon Dioxide 22 mEq/L (19-29); Chloride 105 mEq/L (98-109); Glucose 92 mg/dL (70-99); Osmolality,Calculated 287 (280-300); Potassium 3.6 mEq/L (3.5-4.5); Sodium 138 mEq/L (136-145); eGFR For African Americans > 60 (> 60); eGFR For Non-African Americans 52 (> 60)
[2016-10-09] MEDS: Aspirin Enteric Coated 81 MG Tablet PO SCH (07:47)
--- NOTE | 2016-10-09 09:29 | Internal Med Progress Note ---
<Kwame Reyes - Last Filed: 10/09/16 09:25> Date of Encounter: 10/09/16 Time of Encounter: 09:29 - Assessment and plan (1) CAD (coronary artery disease) Current Visit: Yes Status: Acute Assessment and plan: Known history of CAD, currently triple-vessel disease. Plan for CABG procedure on Tuesday. Patient stable. Plan: -Continue heparin gtt -Cardiac diet -tele -Continue BB, statin Qualifiers: Coronary Disease-Associated Artery/Lesion type: [place] artery [place] vs. transplanted heart: [place] heart Associated angina: with unstable angina Qualified Code(s): I25.110 - Atherosclerotic heart disease of [place] coronary artery with unstable angina pectoris (2) Unstable angina Current Visit: Yes Status: Acute Assessment and plan: Patient currently without chest pain, continued on heparin drip. Continued on telemetry. [place] for CABG procedure Tuesday. Plan: -As discussed above. (3) Hypertension Current Visit: Yes Status: Chronic Assessment and plan: Stable, continue to monitor. Qualifiers: Hypertension type: essential hypertension Qualified Code(s): I10 - Essential (primary) hypertension (4) Lung nodule Current Visit: Yes Status: Acute Assessment and plan: Incidental CTA finding, bilateral in right middle lobe and left upper lobe, both 4mm nodules High risk due to history of smoking Plan: -f/u with pulmonology as an outpatient. (5) PRAVEEN (acute kidney injury) Current Visit: Yes Status: Acute Assessment and plan: SCr improved slightly, likely elevation from dye administration with LHC. Patient stable. Plan: -IVF @75/hr -Continue to monitor SCr after dye administration with LHC -Continue to avoid nephrotoxins - Reevaluate renal function in a.m. labs. (6) Iron deficiency anemia Current Visit: Yes Status: Acute Assessment and plan: Hgb 11.5, MCV 75.2 Iron 38, %saturation 9, transferrin 314, ferritin 18 - Received 400 mg iron IV. Plan: -Will start oral iron post op -Patient will need further workup as an outpatient for source of DANA Qualifiers: Iron deficiency anemia type: other iron deficiency Qualified Code(s): D50.8 - Other iron deficiency anemias (7) DVT prophylaxis Current Visit: Yes Status: Acute Assessment and plan: Patient on heparin gtt - Subjective Interval history: Mr. Pagan has been seen and evaluated the patient bedside. He is awake alert and interactive and sitting up in chair. He denies any pain or new symptoms or any concerns today. He does have dry hands which she said is from washing his hands multiple times. He would like some lotion. He has no other concerns. He is eating and has a good appetite, he is having bowel movements. - Constitutional Vitals: Temp Pulse Resp BP Pulse Ox 97.7 F 63 16 161/82 97 10/09/16 07:16 10/09/16 07:16 10/09/16 07:16 10/09/16 07:16 10/09/16 07:20 General appearance: Present: cooperative, A&O X 3, pleasant, no acute distress, answers questions appropriately - Eye Eye exam: Present: PERRL, conjuntiva pink, sclera anicteric Pupils: Present: PERRL - ENT ENT exam: Present: mucous membranes moist - Neck Neck exam general surgery: Present: supple, trachea midline. Absent: lymphadenopathy - Respiratory Respiratory exam: Present: CTAB. Absent: accessory muscle use, rales, rhonchi, wheezes - Cardiovascular Cardiovascular exam: Present: RRR, +S1, +S2. Absent: diastolic murmur, gallop, rubs, systolic murmur - GI/Abdominal GI/Abdominal exam: Present: normal bowel sounds, soft, no peritoneal signs. Absent: distended, tenderness - Extremities Exam Extremities exam: Present: warm, radial pulses palpable and symetrical. Absent : calf tenderness, cyanotic, pedal edema - Neurological Exam Neurological exam: Present: CN II-XII intact, oriented X3, no focal deficits. Absent: pronater drift, facial droop, speech deficit - Psychiatric Psychiatric exam: Present: normal affect, normal mood Internal Medicine: Result - Labs CBC & Chem 7: 10/08/16 04:01 10/09/16 03:36 Labs: BMP 10/09/16 03:36 Sodium 138 Potassium 3.6 Chloride 105 Carbon Dioxide 22 BUN 17 Creatinine 1.32 H Glucose 92 Calcium 9.1 - ABG Interpretation ABG results: PT/INR, D-dimer PT 11.8 Seconds (9.4-12.1) 10/07/16 22:06 Consult Discharge Plan - Plan [facility]errals: [facility] [Primary Care Provider] - <Avila Hammond - Last Filed: 10/09/16 18:19> Date of Encounter: 10/09/16 - Constitutional Vitals: Temp Pulse Resp BP Pulse Ox 98.2 F 53 16 158/71 99 10/09/16 14:39 10/09/16 14:39 10/09/16 14:39 10/09/16 14:39 10/09/16 14:39 Internal Medicine: Result - Labs CBC & Chem 7: 10/08/16 04:01 10/09/16 03:36 Labs: BMP 10/09/16 03:36 Sodium 138 Potassium 3.6 Chloride 105 Carbon Dioxide 22 BUN 17 Creatinine 1.32 H Glucose 92 Calcium 9.1 - ABG Interpretation ABG results: PT/INR, D-dimer PT 11.8 Seconds (9.4-12.1) 10/07/16 22:06 - Attending Attestation I examined this patient and my medical decision-making was reviewed with the Resident Physician, Dr Reyes. I agree with the documented findings, disposition and treatment plan as described except to the extent set forth below. Patient reports no chest pain. On exam he is in no acute distress awake alert oriented heart is regular S1 and S2. Lungs are clear. Continue with heparin drip. Plan for CABG on Tuesday.
--- NOTE | 2016-10-09 10:05 | Cardiothoracic Progress Note ---
Date of Encounter: 10/09/16 Time of Encounter: 10:04 - Assessment and plan (1) NSTEMI (non-ST elevated myocardial infarction) Current Visit: Yes Status: Acute The patient has severe 3 vessel CAD and an LVEF 65%. He also has CKD, Stage III and a history of TIA (approximately 30 years ago). He has been recommended for CABG. I concur with this recommendation. His creatinine did elevate after the cardiac catheterization and he will continue to be hydrated over the weekend. I discussed the procedure, benefits, alternatives, and risks with the patient. Based on the STS risk calculator the patient has an operative mortality of approximately 3%, deep sternal wound infection 0.6%, renal failure 8%, and stroke 3%.tentatively the patient is scheduled for CABG on Tuesday, October 11, 2016. The assessment and plan as outlined above was discussed with the patient and/or family members who expressed understanding and agreement. All questions were answered. (2) CAD (coronary artery disease) Current Visit: Yes Status: Acute The assessment and plan as outlined above was discussed with the patient and/or family members who expressed understanding and agreement. All questions were answered. Qualifiers: Coronary Disease-Associated Artery/Lesion type: [place] artery [place] vs. transplanted heart: [place] heart Associated angina: with unstable angina Qualified Code(s): I25.110 - Atherosclerotic heart disease of [place] coronary artery with unstable angina pectoris - Subjective Interval history: The patient is sitting comfortably in a chair. He has no complaints of substernal chest pain or shortness of breath. Vital Signs, Last 4 Hours Temp Pulse Resp BP Pulse Ox 10/09/16 07:20 97 10/09/16 07:16 97.7 F 63 16 161/82 97 Weight 10/07/16 10/08/16 10/09/16 23:59 23:59 23:59 Weight 104.19 kg 104.3 kg - Physical Examination General: Conversant, No Apparent Distress Neck: No JVD, Normal carotid pulses Cardiac: Reg Rate and Rhythm, Normal S1 and S2, No Murmur Lungs: Normal Breath Sounds, No Wheeze, Rales, Rhonchi Neuro: Alert and responsive, No focal deficits noted Vascular: Normal capillary refill Extremities: No Clubbing, No Cyanosis, No Edema, Normal Pulses - Labs 10/08/16 04:01 10/09/16 03:36 Lab Results, Last 24 hours 10/08/16 10/08/16 10/09/16 09:57 15:59 03:36 APTT 62.9 H 64.0 H Sodium 138 Potassium 3.6 Chloride 105 Carbon Dioxide 22 BUN 17 Creatinine 1.32 H Glucose 92 Calcium 9.1 Consult Discharge Plan - Plan [facility]: [facility] [Primary Care Provider[facility] -
[2016-10-09] MEDS: Heparin 25,000 UNIT/500 ML D5W 25,000 UNIT/500 ML MLS IVC SCH ×3 (16:53→23:28)
[2016-10-09] MEDS: *HR* Heparin 5,000 UNIT/ML VIAL IVP PRN (18:20)
[2016-10-10 01:33] LABS: Potassium 3.6 mEq/L (3.5-4.5)
[2016-10-10 01:34] LABS: Basophils % 0.9 %; Eosinophils # 0.3 K/mcL (0.0-0.6); Eosinophils % 5.7 %; Hemoglobin 11.5 g/dL (12.9-16.9); Immature Granulocytes % 0.2 % (0-4); Lymphocytes # 1.3 K/mcL (0.6-4.6); Lymphocytes % 29.5 %; Mean Corpuscular HGB Conc 31.1 g/dL (31.6-35.5); Mean Corpuscular Hemoglobin 23.1 pg (28.0-33.3); Mean Corpuscular Volume 74.4 fL (83.0-100.0); Mean Platelet Volume 10.3 fL (9.4-12.4); Monocytes # 0.4 K/mcL (0.0-1.3); Monocytes % 9.1 %; Neutrophils # 2.4 K/mcL (1.6-8.9); Platelet Count 206 K/mcL (140-400); Red Blood Count 4.97 M/mcL (4.19-5.50); Red Cell Distribution Width 15.2 % (11.5-14.5); Segmented Neutrophils % 54.6 %
--- NOTE | 2016-10-10 07:58 | Internal Med Progress Note ---
<Kwame Reyes - Last Filed: 10/10/16 09:05> Date of Encounter: 10/10/16 Time of Encounter: 07:56 - Assessment and plan (1) CAD (coronary artery disease) Current Visit: Yes Status: Acute Assessment and plan: Known history of CAD, currently triple-vessel disease. Plan for CABG procedure on Tuesday. Patient stable. Plan: -Continue heparin gtt -Cardiac diet -tele -Continue BB, statin Qualifiers: Coronary Disease-Associated Artery/Lesion type: [place] artery [place] vs. transplanted heart: [place] heart Associated angina: with unstable angina Qualified Code(s): I25.110 - Atherosclerotic heart disease of [place] coronary artery with unstable angina pectoris (2) Unstable angina Current Visit: Yes Status: Acute Assessment and plan: Patient currently without chest pain, continued on heparin drip. Continued on telemetry. Plan for CABG procedure Tuesday. Plan: -As discussed above. - CABG tomorrow, NPO after midnight (3) Hypertension Current Visit: Yes Status: Chronic Assessment and plan: Stable, continue to monitor. Qualifiers: Hypertension type: essential hypertension Qualified Code(s): I10 - Essential (primary) hypertension (4) Lung nodule Current Visit: Yes Status: Acute Assessment and plan: Incidental CTA finding, bilateral in right middle lobe and left upper lobe, both 4mm nodules High risk due to history of smoking Plan: -f/u with pulmonology as an outpatient. (5) PRAVEEN (acute kidney injury) Current Visit: Yes Status: Acute Assessment and plan: Patient stable. Creatinine slighly elevated, will encourage oral hydration. Plan: -IVF @75/hr -Continue to monitor SCr after dye administration with [facility] -Continue to avoid nephrotoxins - Reevaluate renal function in a.m. labs. (6) Iron deficiency anemia Current Visit: Yes Status: Acute Assessment and plan: Hgb 11.5, MCV 75.2 Iron 38, %saturation 9, transferrin 314, ferritin 18 - Received 400 mg iron IV. Plan: -Will start oral iron post op -Patient will need further workup as an outpatient for source of DANA Qualifiers: Iron deficiency anemia type: other iron deficiency Qualified Code(s): D50.8 - Other iron deficiency anemias (7) DVT prophylaxis Current Visit: Yes Status: Acute Assessment and plan: Patient on heparin gtt - Subjective Interval history: Mr. Pagan has been seen and evaluated the patient bedside. He is awake alert and interactive and sitting up in chair. He denies any pain or new symptoms or any concerns today. He has no other concerns. He is eating and has a good appetite, he is having bowel movements appropriately. - Constitutional Vitals: Temp Pulse Resp BP Pulse Ox 97.9 F 74 16 170/68 96 10/10/16 07:46 10/10/16 07:46 10/10/16 07:46 10/10/16 07:46 10/10/16 07:46 General appearance: Present: cooperative, A&O X 3, pleasant, no acute distress, answers questions appropriately - Head Head exam: Present: atraumatic, normocephalic - Eye Eye exam: Present: PERRL, conjuntiva pink, sclera anicteric Pupils: Present: PERRL - ENT ENT exam: Present: mucous membranes moist - Neck Neck exam general surgery: Present: supple, trachea midline. Absent: lymphadenopathy - Respiratory Respiratory exam: Present: CTAB. Absent: accessory muscle use, rales, rhonchi, wheezes - Cardiovascular Cardiovascular exam: Present: RRR, +S1, +S2. Absent: diastolic murmur, gallop, rubs, systolic murmur - GI/Abdominal GI/Abdominal exam: Present: normal bowel sounds, soft, no peritoneal signs. Absent: distended, tenderness - Extremities Exam Extremities exam: Present: warm, radial pulses palpable and symetrical. Absent : calf tenderness, cyanotic, pedal edema - Neurological Exam Neurological exam: Present: CN II-XII intact, oriented X3, no focal deficits. Absent: pronater drift, facial droop, speech deficit - Psychiatric Psychiatric exam: Present: normal affect, normal mood - Skin Skin exam: Present: dry, intact Internal Medicine: Result - Labs CBC & Chem 7: 10/10/16 01:05 10/10/16 01:05 Labs: Short CBC 10/10/16 Range/Units 01:05 WBC 4.4 (4.3-11.1) K/mcL Hgb 11.5 L (12.9-16.9) g/dL Hct 37.0 L (37.5-50.1) % Plt Count 206 (140-400) K/mcL Neutrophils # 2.4 (1.6-8.9) K/mcL BMP 10/10/16 01:05 Sodium 136 Potassium 3.6 Chloride 105 Carbon Dioxide 23 BUN 18 Creatinine 1.45 H Glucose 104 H Calcium 9.0 - ABG Interpretation ABG results: PT/INR, D-dimer PT 11.8 Seconds (9.4-12.1) 10/07/16 22:06 Consult Discharge Plan - Plan [facility]errals: [facility] [Primary Care Provider] - <Avila Hammond - Last Filed: 10/10/16 16:19> Date of Encounter: 10/10/16 - Constitutional Vitals: Temp Pulse Resp BP Pulse Ox 98.0 F 64 16 161/56 96 10/10/16 15:13 10/10/16 15:13 10/10/16 15:13 10/10/16 15:13 10/10/16 15:13 Internal Medicine: Result - Labs CBC & Chem 7: 10/10/16 01:05 10/10/16 01:05 Labs: Short CBC 10/10/16 Range/Units 01:05 WBC 4.4 (4.3-11.1) K/mcL Hgb 11.5 L (12.9-16.9) g/dL Hct 37.0 L (37.5-50.1) % Plt Count 206 (140-400) K/mcL Neutrophils # 2.4 (1.6-8.9) K/mcL [facility] 10/10/16 01:05 Sodium 136 Potassium 3.6 Chloride 105 Carbon Dioxide 23 BUN 18 Creatinine 1.45 H Glucose 104 H Calcium 9.0 - ABG Interpretation ABG results: PT/INR, D-dimer PT 11.8 Seconds (9.4-12.1) 10/07/16 22:06 - Attending Attestation I examined this patient and my medical decision-making was reviewed with the Resident Physician, Dr Reyes. I agree with the documented findings, disposition and treatment plan as described except to the extent set forth below. On exam he is in no distress heart is regular with normal S1 and S2. Lungs are clear bilaterally. Abdomen soft. Continue with heparin drip. Plan for CABG tomorrow.
[2016-10-10] MEDS: Aspirin Enteric Coated 81 MG Tablet PO SCH (08:33)
[2016-10-10] MEDS: 0.9 % Sodium Chloride 1,000 ML IVC SCH ×2 (08:34→19:38)
--- NOTE | 2016-10-10 08:38 | Cardiothoracic Progress Note ---
Date of Encounter: 10/10/16 Time of Encounter: 08:35 - Assessment and plan (1) NSTEMI (non-ST elevated myocardial infarction) Current Visit: Yes Status: Acute The patient has severe 3 vessel CAD and an LVEF 65%. He also has CKD, Stage III and a history of TIA (approximately 30 years ago). He has been recommended for CABG. I concur with this recommendation. His creatinine did elevate after the cardiac catheterization and he will continue to be hydrated over the weekend. I discussed the procedure, benefits, alternatives, and risks with the patient. Based on the STS risk calculator, the patient has an operative mortality of approximately 3%, deep sternal wound infection 0.6%, renal failure 8%, and stroke 3%. Tentatively the patient is scheduled for CABG on Tuesday, October 11, 2016. The assessment and plan as outlined above was discussed with the patient and/or family members who expressed understanding and agreement. All questions were answered. (2) CAD (coronary artery disease) Current Visit: Yes Status: Acute The assessment and plan as outlined above was discussed with the patient and/or family members who expressed understanding and agreement. All questions were answered. Qualifiers: Coronary Disease-Associated Artery/Lesion type: [place] artery [place] vs. transplanted heart: [place] heart Associated angina: with unstable angina Qualified Code(s): I25.110 - Atherosclerotic heart disease of [place] coronary artery with unstable angina pectoris - Subjective Interval history: The patient is sitting comfortably in a chair. He has no complaints of substernal chest pain or shortness of breath. Vital Signs, Last 4 Hours Temp Pulse Resp BP Pulse Ox 10/10/16 07:46 97.9 F 74 16 170/68 96 10/10/16 05:04 61 159/79 Weight 10/08/16 10/09/16 10/10/16 23:59 23:59 23:59 Weight 104.3 kg 103.873 kg - Physical Examination General: Conversant, No Apparent Distress Neck: No JVD, Normal carotid pulses Cardiac: Reg Rate and Rhythm, Normal S1 and S2, No Murmur Lungs: Normal Breath Sounds, No Wheeze, Rales, Rhonchi Neuro: Alert and responsive, No focal deficits noted Vascular: Normal capillary refill Musculoskeletal: No Chest Wall Tenderness Extremities: No Clubbing, No Cyanosis, No Edema, Normal Pulses - Labs 10/10/16 01:05 10/10/16 01:05 Lab Results, Last 24 hours 10/09/16 10/10/16 10/10/16 17:53 01:05 01:05 WBC 4.4 Hgb 11.5 L Hct 37.0 L Plt Count 206 APTT 52.6 H Sodium 136 Potassium 3.6 Chloride 105 Carbon Dioxide 23 BUN 18 Creatinine 1.45 H Glucose 104 H Calcium 9.0 10/10/16 10/10/16 01:05 07:34 WBC Hgb Hct Plt Count APTT 81.5 H D 75.2 H Sodium Potassium Chloride Carbon Dioxide BUN Creatinine Glucose Calcium Consult Discharge Plan - Plan [facility]errals: [facility] [Primary Care Provider] -
[2016-10-10] MEDS: Heparin 25,000 UNIT/500 ML D5W 25,000 UNIT/500 ML MLS IVC SCH ×2 (11:27→22:54)
[2016-10-10] MEDS: Chlorhexidine Rinse 15 ML MOUTHWASH MM SCH (21:46)
[2016-10-11] MEDS: Chlorhexidine Rinse 15 ML MOUTHWASH MM SCH ×2 (05:39→20:50)
[2016-10-11] MEDS ORDERED: *HR* Norepinephrine 4 MG/4 ML VIAL IVC ONE (06:46)
[2016-10-11] MEDS ORDERED: *HR* Etomidate 20 MG/10 ML AMPUL IVP ONE (06:46)
[2016-10-11] MEDS ORDERED: Tranexamic Acid 1,000 MG/10 ML VIAL ONE ×2 (06:46→09:38)
[2016-10-11] MEDS ORDERED: Famotidine 20 MG/2 ML VIAL ONE (06:46)
[2016-10-11] MEDS ORDERED: *HR* Rocuronium Bromide 50 MG/5 ML VIAL ONE ×2 (06:46→09:36)
[2016-10-11] MEDS ORDERED: Protamine Sulfate 250 MG/25 ML VIAL IVP ONE (06:46)
[2016-10-11] MEDS ORDERED: *HR* Phenylephrine 10 MG/ML VIAL ONE (06:46)
[2016-10-11] MEDS ORDERED: Nitroglycerin 25 MG/250 ML INFUS..BTL IVC ONE ×2 (06:53→09:47)
[2016-10-11] MEDS ORDERED: NiCARdipine 2.5 MG/10 ML Syringe IVPB ONE (06:54)
[2016-10-11] MEDS ORDERED: Clindamycin 900 MG/50 ML 0 MG/0 ML IV.SOLN IVPB ONE (06:58)
[2016-10-11] MEDS ORDERED: Clindamycin 900 MG/50 ML 900 MG/50 ML IV.SOLN IVPB ONE ×2 (07:00→10:14)
[2016-10-11] MEDS ORDERED: *HR* Midazolam HCl 5 MG/5 ML VIAL IVP ONE (07:07)
[2016-10-11] MEDS ORDERED: *HR* FentaNYL (PF) 1,000 MCG/20 ML VIAL ONE (07:07)
--- NOTE | 2016-10-11 07:24 | Anesthesia Evaluation PreOp ---
Date of Encounter: 10/11/16 Time of Encounter: 07:21 - Past History Planned Operation: CABG Cardiac History: HTN Pulmonary History: Denies Any Significant HX [employer] History: Denies Any Significant HX Other Medical History: Denies Any Significant HX Alcohol Use: rarely Drug use: none Medications and Allergies Acetaminophen [Tylenol] 650 mg PO TID PRN 10/06/16 [History] Aspirin [Lo-Dose Aspirin EC] 81 mg PO DAILY 10/06/16 [History] CloNIDine HCl 0.1 mg PO BID 10/06/16 [History] Losartan Potassium [Cozaar] 50 mg PO DAILY 10/06/16 [History] Meclizine [Antivert] 12.5 mg PO TID PRN 10/06/16 [History] Allergies Penicillins Allergy (Verified 10/06/16 05:26) Anaphylaxis - Meds/Allergy Pre-op Review Medications Reviewed: Yes Allergies Reviewed: Yes Beta Blockers on Current Med List: Yes If Beta Blockers taken, Date/Time (Last Dose taken): 10-11-16 @ 0539 Anesthesia Results - Labs 10/10/16 01:05 10/10/16 01:05 - Imaging Additional studies: Cath shows 3 vessel disease with EF 65% Echo shows mild diastolic dysfunction of LV with EF 50% Carotid studies are normal Anesthesia Exam Selected Entries 10/11/16 04:33 Temperature 97.9 F Pulse Rate 78 Respiratory Rate 15 Blood Pressure 150/62 O2 Sat by Pulse Oximetry 98 Weight: 104kg NPO (# of Hours): 8 Pain Scale: 0 Pain Scale Used: Numeric (1 - 10) - HEENT Pupil (Motor): EOMI Mallampati: II Teeth: Edentulous Oral Opening: Greater than 3 - [employer] [employer] LOC: Oriented [employer] Motor: Normal RUE, Normal LUE, Normal RLE, Normal LLE, Normal Face [employer] Sensory: Normal: RUE, LUE, RLE, LLE, Face - Cardiac Rhythm: Regular Murmur: None - Pulmonary Breath Sounds: bilateral Clear Respiratory Effort: Symmetrical Anesthesia Assess/Plan ASA Score: 3 Modified [place] Scale for Level of Consciousness: Cooperative, oriented, and tranquil Anesthetic Plan: General Monitoring Plan: Standard Monitors, A-Line, PAC, ROWAN Recovery Plan: ICU (Discussed risks of GA, lines, ROWAN and blood products. Questions answered and agrees to proceed.)
--- NOTE | 2016-10-11 08:31 | Anesthesia Procedures ---
Date of Encounter: 10/11/16 Time of Encounter: 07:45 Procedures: Anesthesia - Arterial Line Consent obtained: written consent Time out performed: Yes Sedation: Versed (mg): 2 Sedation: Fentanyl (mcg): 100 Supplemental Oxygen via Nasal Cannula (L/min): 2 Local Anesthetic: Lidocaine 1% Amount of Anesthetic used (mls): 1 Size (Gauge): 20 Length (inches): 5 Technique Used: sterile prep, guide wire technique, direct puncture technique Post-Procedure: line taped into place, dry sterile dressing placed Patient tolerated procedure: well, no complications Complications: none Site: Radial L (attempt x 1) - Central Line Placement Right IJ Consent obtained: written consent Time out performed: Yes MD prep: mask, gown, gloves Central line prep: Chlorhexidine scrub Ultrasound used for placement: Yes Technique: Seldinger Lumen Inserted: Introducer Post procedure: sutured in place, good blood return, sterile dressing applied Patient tolerated procedure: well, no complications Complications: none (attempt x 1, no arrythmias, swan wedge approx 60cm)
[2016-10-11] MEDS ORDERED: niCARdipine 20 MG/200 ML MLS IVC ONE (08:32)
[2016-10-11] MEDS ORDERED: Esmolol 100 MG/10 ML VIAL IVP ONE (09:18)
[2016-10-11] MEDS ORDERED: *HR* Amiodarone 150 MG/3 ML VIAL IVPB ONE (09:19)
[2016-10-11] MEDS ORDERED: Amiodarone Premix 360 MG/200 ML BAG IVC ONE (09:23)
[2016-10-11] MEDS ORDERED: Albumin Human 5% 50.0 GM/1,000 ML VIAL ONE (09:47)
--- NOTE | 2016-10-11 11:44 | Operative Note ---
Date of procedure: 10/11/16 Pre-op diagnosis: CAD with NSTEMI Post-op diagnosis: same Procedure: 1. CABG 3 (SUNG to LAD, SVG to OM1, SVG to PDA). 2. Endoscopic vein harvesting, greater saphenous vein from right lower extremity. 3. Endoscopic vein harvesting, greater saphenous vein from left lower extremity. Implants: None. Complications: None. Anesthesia: ANTHONY Surgeon: Domonique Silveira Senior Accounting Analyst: Baltazar Jeff Specimen: None. Condition: stable Disposition: ICU Procedure in Detail: INDICATIONS FOR OPERATION: The patient is an 81-year-old hypertensive man who was awakened from sleep with right sided chest pain which radiated to his left and then down both arms. The patient had not had similar episodes and took baby aspirin without relief. The patient was evaluated at [facility] emergency department and found to have elevated troponin I levels consistent with an acute non-STEMI. He was treated medically with resolution of his symptoms and admitted for further cardiac workup. The patient underwent a transthoracic echocardiogram which revealed an LVEF 60% with normal LV size and systolic function. Subsequent cardiac catheterization revealed severe 3 vessel CAD. In particular, the patient had a 60-70% proximal to mid LAD lesion, a 50% mid LAD lesion, a long 70% proximal OM1 lesion, a 70% proximal RCA lesion, a 90% mid RCA lesion, an 80% distal RCA lesion. The patient was recommended for CABG. FINDINGS AT OPERATION: The aorta was slightly thickened but without calcification. The coronary arteries measure approximately 2-3 mm in diameter and had mild distal disease. The greater saphenous vein was harvested endoscopically from both the left and right lower extremities from the knee to the groin and was of fair quality with varicosed areas in the midportion. These areas were resected and a primary end- to-end anastomosis was completed in order to obtain to satisfactory length of bypass conduit. The total bypass time was 58 minutes, cross-clamp time 31 minutes, intentional hypothermia of 34.5C. DESCRIPTION OF OPERATION: After obtaining informed operative consent from the patient, he was brought to the operating room where satisfactory general endotracheal anesthetic was induced. Appropriate monitors placed and the patient's chest, abdomen, and lower extremity were prepped and draped in a sterile fashion. The greater saphenous vein was initially harvested from the right lower extremity from the knee to the groin. This vein was removed and found to be of fair quality, with varicosed areas in the midportion. The varicosed areas were excised and a primary end-to-end and anastomosis was completed. This resulted in one length of usable bypass conduit. The greater saphenous vein was then resected from the left lower extremity from the knee to the groin and again this vein was found to be of fair quality, with varicosed areas in the midportion. The varicosed areas were excised and a primary end-to-end anastomosis was completed, resulting in a second length of usable bypass conduit. The subcutaneous tissue and skin edges were reapproximated using running Vicryl sutures. Simultaneously a standard median sternotomy incision was made and the sternum divided. The SUNG was taken out from its bed and side branches divided between hemoclips. The sternum was and the pericardium opened and reflected laterally. The patient was prepared for cannulation placing pursestring sutures in the distal ascending aorta, mid-ascending aorta, and right atrial appendage. The patient was heparinized and when the ACT was greater than 200 seconds, the distal ascending aorta was cannulated followed by placement of a dual stage venous cannula through the right atrial appendage and into the IVC. A stab-in antegrade metabolic cannula was placed in the mid-ascending aorta. Prior to the initiation of bypass, the patient's heart rhythm degenerated to atrial fibrillation and required an amiodarone loading dose and bolus as well as a 10 J and 20 J synchronized cardioversion. The patient remained in atrial fibrillation until bypass was initiated. The patient was placed on bypass the temperature allowed to drift to 34.5C. The distal targets were identified and the aorta was crossclamped. The patient received 1200 mL of cold antegrade crystalloid cardioplegia through the aortic root and the patient's heart obtain rapid diastolic arrest. The PDA was opened with [place] blade and the vein was anastomosed in an end-to- side fashion using running 7-0 Prolene suture. The anastomosis was found to be hemostatic and the patient received a notice cold antegrade crystalloid cardioplegia to both the aortic root and the vein graft. The OM1 branch was opened with a [place] blade and the vein was anastomosed in an end-to-side fashion using a running 7-0 Prolene suture. Anastomosis was found to be hemostatic. Finally, the LAD was opened with a [place] blade and the SUNG was anastomosed to the LAD in an end-to-side fashion. The anastomosis was found to be hemostatic and the mammary pedicle was tacked to the epicardium using interrupted 5-0 silk suture. Rewarming was begun during this anastomosis. The aortic cross-clamp was released and the heart distended. The veins were measured and cut at appropriate lengths. A partial occluding clamp was placed across the mid-ascending aorta and the antegrade cardioplegia cannula was removed. Additional aortotomy site was made with 11 blade and both sides were enlarged with a 4 mm punch. The veins were anastomosed in end-to-side fashion to the aorta using a running 5-0 Prolene suture. The vein grafts were occluded with bulldog clamps and de-aired with a 25-gauge needle prior to removing the partial occluding clamp. The proximal and distal anastomoses were found to be hemostatic and the proximal anastomoses were marked with radiopaque loops. Two right ventricular temporary epicardial pacing leads were placed, and 3 chest suture placed, 2 in the mediastinum and one into the left pleural space. During rewarming the patient's heart regained normal sinus rhythm spontaneously. When the patient's systemic temperature reached 36C he was ventilated and received volume. He was then weaned from bypass and required no inotropic support. Protamine was administered and the aortic and venous cannulae were removed. The pursestring sutures were secured and both the aortic and venous cannulation sites were reinforced with 4-0 Prolene suture. The pericardium was loosely approximated the midline using interrupted 0 silk suture and the sternum was reapproximated using sternal wires. The pectoralis major fascia, rectus abdominis fascia, subcutaneous tissue, and skin edges were reapproximated using running Vicryl sutures. Sterile dressings were applied. The patient was transferred to the ICU in satisfactory postoperative condition. There were no intraoperative complications, and the instrument, needle, and sponge count were correct at end of operation. - Open Heart Detail CRISTO (Internal Mammary Artery) Usage: Yes Cardiopulmonary Bypass Time (mins): 58 Aortic Cross Clamp Time (mins): 31 Intentional Hypothermia Temperature (C.): 34.5
[2016-10-11] MEDS ORDERED: Acetaminophen 650 MG RECTAL SUPP RC PRN (11:48)
[2016-10-11] MEDS ORDERED: Calcium Chloride 1,000 MG in 0.9 % Sodium Chloride 100 ML IVPB PRN (11:48)
[2016-10-11] MEDS ORDERED: *HR* Morphine 2 MG/ML SYRINGE IVP PRN (11:48)
[2016-10-11] MEDS ORDERED: Insulin Regular, Human 100 UNIT/ML IV PRN (11:48)
[2016-10-11] MEDS ORDERED: Acetaminophen 325 MG TABLET PO PRN (11:48)
[2016-10-11] MEDS ORDERED: Potassium Chloride 40 MEQ/200 ML BAG IVPB PRN (11:48)
[2016-10-11] MEDS ORDERED: *HR* Dextrose 50 % in Water (Syg) 50 ML SYRINGE IVP PRN (11:48)
[2016-10-11] MEDS ORDERED: Ondansetron 4 MG/2 ML VIAL IVP PRN (11:48)
[2016-10-11] MEDS ORDERED: *HR* Phenylephrine 10 MG/ML VIAL IVC ONE (11:57)
[2016-10-11] MEDS ORDERED: Tranexamic Acid 1,000 MG/10 ML VIAL IV ONE (11:57)
[2016-10-11] MEDS ORDERED: *HR* Magnesium Sulfate 2 GM/50 ML PIGGYBACK IVPB ONE (11:57)
[2016-10-11] MEDS ORDERED: Albumin Human 25% 25 GM/100 ML IV.SOLN IV ONE (11:57)
[2016-10-11] MEDS ORDERED: *HR* Heparin 10,000 UNIT/10 ML VIAL IV ONE (11:57)
[2016-10-11] MEDS ORDERED: Mannitol 25% vial 12.5 GM/50 ML VIAL IVP ONE (11:57)
[2016-10-11] MEDS ORDERED: Sodium Bicarbonate 50 MEQ/50 ML VIAL IVC ONE (11:57)
[2016-10-11] MEDS ORDERED: Clindamycin 600 MG/50 ML IV.SOLN IVPB ONE (11:57)
[2016-10-11] MEDS ORDERED: Lidocaine 2% Syringe 100 MG/5 ML IV ONE (11:57)
[2016-10-11] MEDS ORDERED: Insulin Human Regular 100 UNIT in 0.9 % Sodium Chloride 100 ML IVC SCH (12:00)
[2016-10-11] MEDS ORDERED: niCARdipine 40 MG/200 ML MLS IVC ONE (12:09)
[2016-10-11 12:16] LABS: Basophils % 0.1 %; Eosinophils % 1.6 %; Hematocrit 34.5 % (37.5-50.1); Mean Corpuscular Volume 74.4 fL (83.0-100.0); Red Blood Count 4.64 M/mcL (4.19-5.50); Red Cell Distribution Width 15.4 % (11.5-14.5)
[2016-10-11 12:18] LABS: ABG Base Excess 1.9 mEq/L (-2.0 to 3.0); ABG HCO3 26.6 mEQ/L (21-27); ABG Oxygen Saturation 100 % (95-98); ABG PCO2 41 mmHg (35-45); ABG PO2 332 mmHg (85-104); ABG TCO2 27.9 mEq/L (20-26); Eosinophils # 0.1 K/mcL (0.0-0.6); Hemoglobin 10.9 g/dL (12.9-16.9); Immature Granulocytes % 0.5 % (0-4); Immature Platelets 4.8 % (1.1-6.1); Lymphocytes % 14.3 %; Mean Corpuscular HGB Conc 31.6 g/dL (31.6-35.5); Mean Corpuscular Hemoglobin 23.5 pg (28.0-33.3); Mean Platelet Volume 9.8 fL (9.4-12.4); Monocytes # 0.3 K/mcL (0.0-1.3); Monocytes % 4.1 %; Neutrophils # 6.4 K/mcL (1.6-8.9); Platelet Count 104 K/mcL (140-400); Segmented Neutrophils % 79.4 %
[2016-10-11 12:21] LABS: ABG PH 7.42 pH Units (7.32-7.45); Blood Gas FiO2 100 %; Blood Gas PEEP 5 cm H2O; Blood Gas Respiration Rate 12; Blood Gas VT 500 cc
[2016-10-11] MEDS: niCARdipine 40 MG/200 ML MLS IVC SCH (12:22)
[2016-10-11 12:23] LABS: INR 1.6
[2016-10-11] MEDS: Nitroglycerin 25 MG/250 ML INFUS..BTL IVC SCH ×2 (12:23→20:57)
[2016-10-11] MEDS: Amiodarone Premix 360 MG/200 ML BAG IVC ONE ×2 (12:24→15:24)
[2016-10-11 12:27] LABS: Activated Partial Thrombo Time 30.6 Seconds (26.0-36.0)
[2016-10-11 12:29] LABS: BUN/Creatinine Ratio 16 (6-26); Blood Urea Nitrogen 17 mg/dL (8-26); Calcium 8.4 mg/dL (8.6-10.8); Carbon Dioxide 23 mEq/L (19-29); Chloride 104 mEq/L (98-109); Glucose 109 mg/dL (70-99); Magnesium 2.1 mg/dL (1.6-2.6); Osmolality,Calculated 286 (280-300); Potassium 3.3 mEq/L (3.5-4.5); Prothrombin Time 17.7 Seconds (9.4-12.1); eGFR For African Americans > 60 (> 60); eGFR For Non-African Americans > 60 (> 60)
[2016-10-11 12:30] LABS: Lymphocytes # 1.1 K/mcL (0.6-4.6)
[2016-10-11 12:34] LABS: Sodium 137 mEq/L (136-145)
[2016-10-11] MEDS: Pantoprazole 40 MG VIAL IVP SCH (12:51)
[2016-10-11] MEDS: Metoclopramide 10 MG/2 ML VIAL IVP SCH ×2 (12:51→17:41)
[2016-10-11] MEDS: 0.9 % Sodium Chloride 1,000 ML IVC SCH (12:52)
[2016-10-11] MEDS: Aspirin Enteric Coated 81 MG Tablet PO SCH (12:53)
[2016-10-11 13:06] LABS: ABG PCO2 54 mmHg (35-45); ABG PH 7.29 pH Units (7.32-7.45); ABG PO2 125 mmHg (85-104)
[2016-10-11 13:07] LABS: ABG Base Excess -1.1 mEq/L (-2.0 to 3.0); ABG Glucose 129 mg/dL (60-95); ABG Hematocrit 33 % (35-51); ABG Ionized Calcium 1.12 mmol/L (1.15-1.35); ABG Oxygen Saturation 98 % (95-98); ABG TCO2 27.7 mEq/L (20-26)
[2016-10-11 13:09] LABS: ABG HCO3 27.7 mEQ/L (21-27); ABG PCO2 48 mmHg (35-45); ABG PH 7.37 pH Units (7.32-7.45); ABG PO2 484 mmHg (85-104)
[2016-10-11 13:10] LABS: ABG Base Excess 2.1 mEq/L (-2.0 to 3.0); ABG Glucose 216 mg/dL (60-95); ABG Hematocrit 25 % (35-51); ABG Ionized Calcium 0.93 mmol/L (1.15-1.35); ABG Oxygen Saturation 100 % (95-98); ABG TCO2 29.2 mEq/L (20-26)
[2016-10-11 13:12] LABS: ABG PCO2 43 mmHg (35-45)
[2016-10-11 13:13] LABS: ABG Base Excess 1.6 mEq/L (-2.0 to 3.0); ABG Glucose 152 mg/dL (60-95); ABG HCO3 26.6 mEQ/L (21-27); ABG Hematocrit 24 % (35-51); ABG Ionized Calcium 1.22 mmol/L (1.15-1.35); ABG Oxygen Saturation 98 % (95-98); ABG PO2 112 mmHg (85-104); ABG TCO2 27.9 mEq/L (20-26)
[2016-10-11 13:17] LABS: ABG Base Excess 0.8 mEq/L (-2.0 to 3.0); ABG Glucose 85 mg/dL (60-95); ABG HCO3 26.6 mEQ/L (21-27); ABG Hematocrit 33 % (35-51); ABG Ionized Calcium 1.07 mmol/L (1.15-1.35); ABG Oxygen Saturation 85 % (95-98); ABG PCO2 47 mmHg (35-45); ABG PH 7.36 pH Units (7.32-7.45); ABG PO2 52 mmHg (85-104)
[2016-10-11] MEDS: Magnesium Sulfate 2 GM in D5% in Water 100 ML IVPB PRN (15:02)
[2016-10-11 16:58] LABS: Hemoglobin 11.3 g/dL (12.9-16.9)
[2016-10-11 17:00] LABS: ABG HCO3 23.7 mEQ/L (21-27); ABG Oxygen Saturation 89 % (95-98); ABG PCO2 54 mmHg (35-45); ABG PO2 65 mmHg (85-104); ABG TCO2 25.4 mEq/L (20-26)
[2016-10-11 17:03] LABS: ABG PH 7.25 pH Units (7.32-7.45); Blood Gas FiO2 30 %
[2016-10-11] MEDS: Clindamycin 900 MG/50 ML 900 MG/50 ML IV.SOLN IVPB SCH (17:41)
[2016-10-11] MEDS: *HR* Morphine 2 MG/ML SYRINGE IVP PRN (18:53)
--- NOTE | 2016-10-11 19:04 | Electrocardiograph Report ---
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
[2016-10-11] MEDS: Norepinephrine 4 MG in D5% in Water 250 ML IVC SCH (19:47)
[2016-10-11] MEDS: Heparin 25,000 UNIT/500 ML D5W 25,000 UNIT/500 ML MLS IVC SCH (19:48)
[2016-10-11] MEDS: *HR* OxyCODONE/APAP 5/325 TABLET PO PRN (20:50)
[2016-10-11 21:11] LABS: ABG Base Excess 0.3 mEq/L (-2.0 to 3.0); ABG HCO3 25.4 mEQ/L (21-27); ABG Oxygen Saturation 99 % (95-98); ABG PCO2 42 mmHg (35-45); ABG PO2 115 mmHg (85-104); ABG TCO2 26.7 mEq/L (20-26)
[2016-10-11 21:17] LABS: Blood Gas FiO2 40 %
[2016-10-11 21:20] LABS: ABG PH 7.39 pH Units (7.32-7.45)
[2016-10-11 23:05] LABS: ABG Base Excess -1.7 mEq/L (-2.0 to 3.0); ABG Oxygen Saturation 99 % (95-98); ABG PCO2 38 mmHg (35-45); ABG PH 7.39 pH Units (7.32-7.45); ABG PO2 140 mmHg (85-104); ABG TCO2 24.2 mEq/L (20-26); Blood Gas FiO2 40 %
[2016-10-12] MEDS: Norepinephrine 4 MG in D5% in Water 250 ML IVC SCH ×2 (00:30→14:08)
[2016-10-12 00:33] LABS: ABG Base Excess -1.5 mEq/L (-2.0 to 3.0); ABG HCO3 22.8 mEQ/L (21-27); ABG Oxygen Saturation 96 % (95-98); ABG PCO2 36 mmHg (35-45); ABG PH 7.41 pH Units (7.32-7.45); ABG PO2 80 mmHg (85-104); ABG TCO2 23.9 mEq/L (20-26)
[2016-10-12 00:34] LABS: Blood Gas FiO2 28 %; Blood Gas Liter Flow 2 L/MIN
[2016-10-12] MEDS: *HR* Morphine 2 MG/ML SYRINGE IVP PRN ×3 (00:57→08:47)
[2016-10-12] MEDS: Clindamycin 900 MG/50 ML 900 MG/50 ML IV.SOLN IVPB SCH (01:00)
[2016-10-12] MEDS: Metoclopramide 10 MG/2 ML VIAL IVP SCH ×4 (01:00→17:39)
[2016-10-12] MEDS ORDERED: Amiodarone Premix 360 MG/200 ML BAG IVC ONE (02:06)
[2016-10-12] MEDS ORDERED: Amiodarone Premix 360 MG/200 ML BAG IVC SCH (02:15)
[2016-10-12 04:46] LABS: Basophils % 0.3 %; Eosinophils % 0.1 %; Hematocrit 32.4 % (37.5-50.1); Hemoglobin 10.2 g/dL (12.9-16.9); Immature Granulocytes % 0.3 % (0-4); Lymphocytes # 0.4 K/mcL (0.6-4.6); Lymphocytes % 5.5 %; Mean Corpuscular HGB Conc 31.5 g/dL (31.6-35.5); Mean Corpuscular Hemoglobin 23.8 pg (28.0-33.3); Mean Corpuscular Volume 75.7 fL (83.0-100.0); Mean Platelet Volume 10.1 fL (9.4-12.4); Monocytes # 0.7 K/mcL (0.0-1.3); Monocytes % 9.2 %; Neutrophils # 6.2 K/mcL (1.6-8.9); Platelet Count 133 K/mcL (140-400); Red Blood Count 4.28 M/mcL (4.19-5.50); Segmented Neutrophils % 84.6 %
[2016-10-12 04:49] LABS: INR 1.3; Prothrombin Time 14.5 Seconds (9.4-12.1)
[2016-10-12 04:52] LABS: Activated Partial Thrombo Time 28.3 Seconds (26.0-36.0)
[2016-10-12] MEDS: Nitroglycerin 25 MG/250 ML INFUS..BTL IVC SCH ×3 (04:58→19:24)
[2016-10-12 05:14] LABS: Calcium 8.2 mg/dL (8.6-10.8); Magnesium 2.1 mg/dL (1.6-2.6); Potassium 4.3 mEq/L (3.5-4.5)
[2016-10-12] MEDS: Magnesium Sulfate 2 GM in D5% in Water 100 ML IVPB PRN (06:36)
--- NOTE | 2016-10-12 06:55 | Cardiothoracic Progress Note ---
Date of Encounter: 10/12/16 Time of Encounter: 06:56 - Assessment and plan (1) NSTEMI (non-ST elevated myocardial infarction) Current Visit: Yes Status: Acute The patient is recovering well from his CABGx3. He appeared to have left-sided neurologic deficits manifested by upper extremity weakness early this morning; however, this has resolved. The arterial line, Abad catheter, and [place] catheter will be removed. The patient will be monitored in the ICU today. The assessment and plan as outlined above was discussed with the patient and/or family members who expressed understanding and agreement. All questions were answered. (2) CAD (coronary artery disease) Current Visit: Yes Status: Acute The assessment and plan as outlined above was discussed with the patient and/or family members who expressed understanding and agreement. All questions were answered. Qualifiers: Coronary Disease-Associated Artery/Lesion type: [place] artery [place] vs. transplanted heart: [place] heart Associated angina: with unstable angina Qualified Code(s): I25.110 - Atherosclerotic heart disease of [place] coronary artery with unstable angina pectoris - Subjective Procedure(s) Performed: POD#1 S/P CABG3 Interval history: The patient is sitting comfortably in a chair. He has no complaints of substernal chest pain or shortness of breath. Vital Signs, Last 4 Hours Pulse Resp BP Pulse Ox 10/12/16 06:00 80 18 121/56 96 10/12/16 05:00 80 14 127/49 98 10/12/16 04:16 14 122/45 98 10/12/16 04:00 80 18 140/50 97 10/12/16 03:00 81 16 127/51 99 Oxgyen Flow Rate Oxygen Flow Rate (LPM) 2 Clinical Data, last 8 Hours Output, Chest Tube Drainage 15 Amount [Mediastinal #2] Output, Chest Tube Drainage 0 Amount [Mediastinal #2] Output, Chest Tube Drainage 0 Amount [Mediastinal #2] Output, Chest Tube Drainage 0 Amount [Mediastinal #2] Output, Chest Tube Drainage 5 Amount [Mediastinal #2] Output, Chest Tube Drainage 0 Amount [Mediastinal #2] Output, Chest Tube Drainage 0 Amount [Mediastinal #2] Output, Chest Tube Drainage 0 Amount [Mediastinal #2] Output, Chest Tube Drainage 40 Amount [Mediastinal #1] Output, Chest Tube Drainage 20 Amount [Mediastinal #1] Output, Chest Tube Drainage 0 Amount [Mediastinal #1] Output, Chest Tube Drainage 30 Amount [Mediastinal #1] Output, Chest Tube Drainage 25 Amount [Mediastinal #1] Output, Chest Tube Drainage 45 Amount [Mediastinal #1] Output, Chest Tube Drainage 30 Amount [Mediastinal #1] Weight 10/10/16 10/11/16 10/12/16 23:59 23:59 23:59 Weight 103.873 kg 103.192 kg - Physical Examination General: Conversant, No Apparent Distress Neck: No JVD, Normal carotid pulses Cardiac: Reg Rate and Rhythm, Normal S1 and S2, No Murmur Incision: No signs of infection, Dry/intact dressing Sternum: Stable Chest tubes: Minimal drainage, Other (No air leak.) Pacing Wires: In place Lungs: Normal Breath Sounds, No Wheeze, Rales, Rhonchi Neuro: Alert and responsive, No focal deficits noted Vascular: Normal capillary refill Musculoskeletal: No Chest Wall Tenderness Extremities: No Clubbing, No Cyanosis, No Edema - Labs 10/12/16 04:30 10/12/16 04:30 Lab Results, Last 24 hours 10/11/16 10/11/16 10/11/16 12:02 12:02 12:02 WBC 8.0 D Hgb 10.9 L Hct 34.5 L Plt Count 104 L INR 1.6 APTT 30.6 D Sodium 137 Potassium 3.3 L Chloride 104 Carbon Dioxide 23 BUN 17 Creatinine 1.07 Glucose 109 H Calcium 8.4 L Magnesium 2.1 10/11/16 10/11/16 10/12/16 16:52 16:52 04:30 WBC 7.3 Hgb 11.3 L 10.2 L Hct 37.0 L 32.4 L Plt Count 133 L INR APTT Sodium Potassium 3.4 L Chloride Carbon Dioxide BUN Creatinine Glucose Calcium Magnesium 10/12/16 10/12/16 04:30 04:30 WBC Hgb Hct Plt Count INR 1.3 APTT 28.3 Sodium 137 Potassium 4.3 Chloride 107 Carbon Dioxide 21 BUN 21 Creatinine 1.57 H Glucose 136 H Calcium 8.2 L Magnesium 2.1 - Imaging Chest Xray: image reviewed (No pneumothorax. Left basilar atelectasis.) Consult Discharge Plan - Plan Referrals: Jose Jennings CNP [Advanced Practice Nurse] - 11/09/16 2:00 pm [facility] -
[2016-10-12] MEDS: Furosemide 20 MG/2 ML VIAL IVP SCH ×2 (08:39→20:30)
[2016-10-12] MEDS: *HR* Heparin 5,000 UNIT/ML VIAL SQ SCH ×2 (08:39→17:47)
[2016-10-12] MEDS: Pantoprazole 40 MG VIAL IVP SCH (08:40)
[2016-10-12] MEDS: *HR* Amiodarone 200 MG TABLET PO SCH ×2 (08:40→20:30)
[2016-10-12] MEDS: 0.9 % Sodium Chloride 1,000 ML IVC SCH (08:48)
[2016-10-12] MEDS: Chlorhexidine Rinse 15 ML MOUTHWASH MM SCH ×2 (08:49→20:31)
[2016-10-12] MEDS: Aspirin Enteric Coated 81 MG Tablet PO SCH (08:49)
[2016-10-12] MEDS ORDERED: Dextrose Gel 15 GM PO PRN ×2 (12:15)
[2016-10-12] MEDS ORDERED: *HR* Dextrose 50 % in Water (Syg) 50 ML SYRINGE IVP PRN (12:15)
[2016-10-12] MEDS ORDERED: D5% in Water 1,000 ML IVC PRN (12:15)
[2016-10-12] MEDS: niCARdipine 40 MG/200 ML MLS IVC SCH (14:07)
[2016-10-12] MEDS: Insulin LISPRO 300 UNITS/3 ML VIAL SQ SCH ×2 (14:10→17:33)
[2016-10-12] MEDS: *HR* OxyCODONE/APAP 5/325 TABLET PO PRN ×2 (17:39→23:13)
[2016-10-12] MEDS ORDERED: Insulin LISPRO 300 UNITS/3 ML VIAL SQ SCH (21:00)
[2016-10-13] MEDS: Metoclopramide 10 MG/2 ML VIAL IVP SCH ×2 (00:32→05:59)
[2016-10-13] MEDS: *HR* Morphine 2 MG/ML SYRINGE IVP PRN ×4 (00:32→23:47)
[2016-10-13] MEDS: 0.9 % Sodium Chloride 1,000 ML IVC SCH (04:37)
[2016-10-13] MEDS: Nitroglycerin 25 MG/250 ML INFUS..BTL IVC SCH (04:37)
[2016-10-13 04:41] LABS: Basophils % 0.2 %; Eosinophils # 0.1 K/mcL (0.0-0.6); Eosinophils % 0.7 %; Hematocrit 30.7 % (37.5-50.1); Hemoglobin 9.6 g/dL (12.9-16.9); Immature Granulocytes % 0.4 % (0-4); Lymphocytes # 0.9 K/mcL (0.6-4.6); Lymphocytes % 10.2 %; Mean Corpuscular HGB Conc 31.3 g/dL (31.6-35.5); Mean Corpuscular Hemoglobin 23.8 pg (28.0-33.3); Monocytes # 0.8 K/mcL (0.0-1.3); Monocytes % 9.5 %; Neutrophils # 6.7 K/mcL (1.6-8.9); Platelet Count 144 K/mcL (140-400); Red Blood Count 4.04 M/mcL (4.19-5.50); Red Cell Distribution Width 16.5 % (11.5-14.5)
[2016-10-13 05:05] LABS: BUN/Creatinine Ratio 16 (6-26); Blood Urea Nitrogen 22 mg/dL (8-26); Calcium 8.3 mg/dL (8.6-10.8); Carbon Dioxide 23 mEq/L (19-29); Chloride 101 mEq/L (98-109); Glucose 108 mg/dL (70-99); Osmolality,Calculated 282 (280-300); Potassium 3.8 mEq/L (3.5-4.5); Sodium 134 mEq/L (136-145); eGFR For African Americans > 60 (> 60); eGFR For Non-African Americans 51 (> 60)
[2016-10-13] MEDS: *HR* Heparin 5,000 UNIT/ML VIAL SQ SCH ×2 (05:59→18:16)
[2016-10-13] MEDS: *HR* OxyCODONE/APAP 5/325 TABLET PO PRN ×5 (06:07→21:17)
--- NOTE | 2016-10-13 08:11 | Anesthesia Evaluation Post Op ---
Date of Encounter: 10/13/16 Time of Encounter: 08:09 - Vital Signs Vital Signs: Selected Entries 10/13/16 06:00 Pulse Rate 70 Respiratory Rate 20 Blood Pressure 142/60 O2 Sat by Pulse Oximetry 95 - Lungs Lungs: Clear Ascult./Percussion - Airway Airway: Non-obstructed - Cardiovascular Regular Rate - Mental Status Mental Status: Alert & Oriented, Answers Appropriately - Pain Pain Scale: 2 Pain Scale used: Numeric (1 - 10) - Nausea Vomiting Nausea Vomiting: Not Present - Hydration Hydration: Tolerates oral liquids - Discharge PostOp Status: Transfer Patient to floor (No apparent anesthesia issues. Sitting in chair. Will transfer out of ICU soon per surgery)
[2016-10-13] MEDS: Aspirin Enteric Coated 81 MG Tablet PO SCH (08:20)
[2016-10-13] MEDS: Furosemide 20 MG/2 ML VIAL IVP SCH (08:21)
[2016-10-13] MEDS: Chlorhexidine Rinse 15 ML MOUTHWASH MM SCH ×2 (08:21→20:44)
[2016-10-13] MEDS: *HR* Amiodarone 200 MG TABLET PO SCH ×2 (08:21→20:43)
[2016-10-13] MEDS: Pantoprazole 40 MG VIAL IVP SCH (08:22)
[2016-10-13] MEDS: Insulin LISPRO 300 UNITS/3 ML VIAL SQ SCH ×4 (08:22→20:51)
--- NOTE | 2016-10-13 08:35 | Cardiothoracic Progress Note ---
Date of Encounter: 10/13/16 Time of Encounter: 08:33 - Assessment and plan (1) Elevated troponin Current Visit: Yes Status: Acute The assessment and plan as outlined above was discussed with the patient and/or family members who expressed understanding and agreement. All questions were answered. The patient has preserved ventricular function with triple vessel disease. He is a candidate for coronary artery bypass grafting. [facility] I will check a carotid duplex as he had an episode in the past that sounded like a TIA with speech difficulty. We will make sure that his creatinine remains stable after he received diet today. Risks of surgery include , infection, stroke, bleeding, myocardial infarction, clots around the heart, renal or respiratory failure, acute or chronic graft closure, phrenic nerve injury and sternal dehiscence. The procedure, its risks benefits and alternatives were explained and he will consider. At this point he is still undecided. Discussion with patient/family: We will check a stat portable chest x-ray. The patient can be transferred to the floor. He remains in normal sinus rhythm on beta lc and amiodarone. - Subjective Interval history: The patient states that the numbness and weakness in his hands is improved and almost gone. I did offer him a neurology consult, but he refused. Vital Signs, Last 4 Hours Temp Pulse Resp BP Pulse Ox 10/13/16 08:08 98.6 F 10/13/16 07:56 18 97 10/13/16 06:00 70 20 142/60 95 10/13/16 05:00 70 18 117/64 97 Oxgyen Flow Rate Oxygen Flow Rate (LPM) 2 Clinical Data, last 8 Hours Output, Chest Tube Drainage 0 Amount [Mediastinal #2] Output, Chest Tube Drainage 10 Amount [Mediastinal #2] Output, Chest Tube Drainage 10 Amount [Mediastinal #1] Output, Chest Tube Drainage 15 Amount [Mediastinal #1] Output, Urine Amount 0 Output, Urine Amount 125 Weight 10/11/16 10/12/16 10/13/16 23:59 23:59 23:59 Weight 103.192 kg Lungs are clear to percussion and auscultation. Heart is in a normal sinus rhythm. All incisions are healing well without signs of infection and the sternum is stable. Chest tube drainage is minimal and there is no air leak. The chest tubes and pacing wires were removed. - Labs 10/13/16 04:06 10/13/16 04:06 Lab Results, Last 24 hours 10/13/16 10/13/16 04:06 04:06 WBC 8.5 Hgb 9.6 L Hct 30.7 L Plt Count 144 Sodium 134 L Potassium 3.8 Chloride 101 Carbon Dioxide 23 BUN 22 Creatinine 1.35 H Glucose 108 H Calcium 8.3 L - VTE Documentation of Mechanical Device: Graduated compression elastic hosiery Consult Discharge Plan - Plan Referrals: Jose Jennings CNP [Advanced Practice Nurse] - 11/09/16 2:00 pm [facility] Care Provider[facility] -
[2016-10-13] MEDS ORDERED: *HR* Dextrose 50 % in Water (Syg) 50 ML SYRINGE IVP PRN (10:27)
[2016-10-13] MEDS ORDERED: D5% in Water 1,000 ML IVC PRN (10:27)
[2016-10-13] MEDS ORDERED: Nitroglycerin 0.4 MG TAB.SUBL SL PRN (10:27)
[2016-10-13] MEDS ORDERED: Dextrose Gel 15 GM PO PRN ×2 (10:27)
[2016-10-13] MEDS ORDERED: Naloxone 0.4 MG/ML INJ IVP PRN (10:27)
[2016-10-13] MEDS ORDERED: Ondansetron 4 MG/2 ML VIAL IVP PRN (10:27)
[2016-10-13] MEDS ORDERED: Acetaminophen 325 MG TABLET PO PRN (10:27)
--- NOTE | 2016-10-13 10:51 | Neurology - Consult Note ---
<Sam Stinson - Last Filed: 10/13/16 11:28> Date of Encounter: 10/13/16 Time of Encounter: 10:51 Assessment and Plan (1) Numbness and tingling of hand Current Visit: Yes Status: Acute Patient was never diagnosed of stroke/TIA in the past however he had expressive aphasia symptom 20 years ago which resolved within a day but patient did not go to the hospital for it. This time patient was hospitalized for NSTEMI and patient was taken to the OR for CABG for severe 3 vessel coronary artery disease , after the procedure patient started to have a tingling/numbness/weakness of both extremities, more so on the right side, patient still has symptoms currently, with the finding of severe three-vessel coronary artery disease and new onset atrial fibrillation, we should do stroke workup by obtaining a brain MRI, carotid ultrasound, risk factors modifications, and patient is currently on statin and baby aspirin daily. History of Present Illness Chief complaint: Tingling/numbness of upper extremities, more so on the right side HPI: Mr. Pagan is a 81 year old male with a history of hypertension who presented to the ER with chief complaint of right-sided chest pain, during hospital stay patient had elevated troponin of 0.04, admitted to the hospital for chest pain r /o acute coronary syndrome, cardiology was consulted, echo showed preserved left ventricular ejection fraction but because of multiple risk factors for coronary artery disease, patient was taken to the left heart catheter which showed severe triple-vessel coronary artery disease and patient was taken to the OR two days ago for coronary artery bypass grafting. After the surgery patient started to notice upper extremity tingling/numbness/weakness, more so on the right arm, patient has no known history of stroke/TIA however patient had expressive aphasia symptom 20 years ago but he never went to the hospital for it. Patient also developed new onset atrial fibrillation during the CABG, since then he is still having in and out of atrial fibrillation with rapid ventricular response. Patient has a smoking history which he quit 40 years ago. Patient denies slurred speech, facial droop, lightheadedness, headache, or tingling/numbness/weakness of lower extremities. Past Med Surg Social Fam HX - Past Medical History Medical history: hypertension Psychiatric history: no psych history - Social History Smoking Status: Former smoker Smokeless Tobacco Status: No Alcohol use: rarely Drug use: none - Family History Father Living Status: Hx Family Cardiac Disorders: Yes ( late 70's [place]) Mother Living Status: Cause of : Cancer Medications and Allergies Acetaminophen [Tylenol] 650 mg PO TID PRN 10/06/16 [History] Aspirin [Lo-Dose Aspirin EC] 81 mg PO DAILY 10/06/16 [History] CloNIDine HCl 0.1 mg PO BID 10/06/16 [History] Losartan Potassium [Cozaar] 50 mg PO DAILY 10/06/16 [History] Meclizine [Antivert] 12.5 mg PO TID PRN 10/06/16 [History] Allergies Penicillins Allergy (Verified 10/06/16 05:26) Anaphylaxis All Systems: A 10-system review of systems was performed and is negative for pertinent findings except as documented above in the HPI. Review of Systems: Patient admits tingling/numbness/weakness of upper extremities, more so on the right side, chest discomfort, shortness of breath, but denies headache, fever, chills, productive cough, nausea, vomiting, slurred speech, facial droop, abdominal pain, constipation, diarrhea, or dysuria. Physical Examination - Vital Signs Vital Signs: Initial Vital Signs Temp Pulse Resp BP Pulse Ox 97.9 F 70 12 141/82 99 10/06/16 05:26 10/06/16 05:26 10/06/16 05:26 10/06/16 05:26 10/06/16 05:26 - Constitutional General appearance: comfortable - Neurologic Sensorimotor examination: intact Detailed motor examination: grossly full strength in all extremities, full strength in all major muscle groups Motor examination - right side: 5/5: deltoids, biceps, triceps, wrist flexion, wrist extension, fire protection inspector, hip flexors, quadriceps, plantarflexion Motor examination - left side: 5/5: deltoids, biceps, triceps, wrist flexion, wrist extension, hip flexors, fire protection inspector, quadriceps, plantarflexion Detailed sensory examination: intact Reflex and gait examination: intact Reflexes: Biceps: 2+, Triceps: 2+, Brachioradialis: 2+, Patella: 2+, Achilles: 2 + Mental Status Examination: awake, alert, oriented to person, oriented to place, oriented to time, follows commands appropriately, answers questions appropriately, no agnosia, no aphasia, no aproxia Cranial nerve examination: PERRL, EOMI, visual levi intact, sensory to face intact, mastication intact, no facial asymmetry is present, no dysarthria, hearing is intact symmetrically, soft palate elevates bilaterally upon phonation , gag reflex intact, tongue protrudes midline, no atrophy or facial fasiculations present Cerebellar examination: no dysmetria, no truncal ataxia, no difficulty with rapid alternating movements Results - Laboratory Findings CBC and BMP: 10/13/16 04:06 10/13/16 04:06 Abnormal lab findings: Abnormal lab results RBC 4.04 M/mcL (4.19-5.50) L 10/13/16 04:06 Hgb 9.6 g/dL (12.9-16.9) L 10/13/16 04:06 Hct 30.7 % (37.5-50.1) L 10/13/16 04:06 MCV 76.0 fL (83.0-100.0) L 10/13/16 04:06 MCH 23.8 pg (28.0-33.3) L 10/13/16 04:06 MCHC 31.3 g/dL (31.6-35.5) L 10/13/16 04:06 RDW 16.5 % (11.5-14.5) H 10/13/16 04:06 PT 14.5 Seconds (9.4-12.1) H 10/12/16 04:30 ABG pO2 80 mmHg (85-104) L 10/12/16 00:25 ABG Hematocrit 24 % (35-51) L 10/11/16 10:39 Sodium 133 mEq/L (135-148) L 10/11/16 10:39 Potassium 3.3 mEq/L (3.5-5.3) L 10/11/16 10:39 Glucose 152 mg/dL (60-95) H 10/11/16 10:39 Sodium 134 mEq/L (136-145) L 10/13/16 04:06 Creatinine 1.35 mg/dL (0.72-1.25) H 10/13/16 04:06 Est GFR (Non-Af Amer) 51 (> 60) L 10/13/16 04:06 Glucose 108 mg/dL (70-99) H 10/13/16 04:06 POC Glucose 111 (58-89) H 10/13/16 07:32 Hemoglobin A1c 5.9 % (-5.6) H 10/06/16 11:22 Calcium 8.3 mg/dL (8.6-10.8) L 10/13/16 04:06 Iron 38 mcg/dL (65-175) L 10/08/16 04:01 % Saturation 9 % (20-55) L 10/08/16 04:01 Ferritin 18 ng/ml (22-275) L 10/08/16 04:01 Globulin 3.6 g/dL (2.4-3.5) H 10/06/16 05:36 Triglycerides 340 mg/dL (< 150) H 10/06/16 11:22 VLDL Cholesterol, Calc 68 mg/dL (< 31) H 10/06/16 11:22 HDL Cholesterol 28 mg/dL (40-59) L 10/06/16 11:22 Cholesterol/HDL Ratio 5.9 (0-4.9) H 10/06/16 11:22 Consult Discharge Plan - Plan Referrals: Jose Jennings, [employer] SPECIALIST [Advanced Practice Nurse] - 11/09/16 2:00 pm [facility] Care [facility] - <Ramo Vincent - Last Filed: 10/13/16 15:09> Date of Encounter: 10/13/16 Time of Encounter: 15:02 Assessment and Plan (1) Numbness and tingling of hand Current Visit: Yes Status: Acute I agree with Dr. Stinson's assessment as stated above. I agree that we should rule out the possibility of a transient ischemic attack/ versus small cerebral infarction on the left. I do get the sense of a slight bit of weakness of the right fire protection inspector strength. Further recommendations will be patent made pending the stroke workup. In the meantime stroke protocol orders should be employed. Certainly in the face of new onset atrial fibrillation it is possible that he may have experienced a cardioembolic phenomenon. If the MRI scan of the brain is negative then I would attribute his paresthesias to hyperventilation perhaps due to postop pain or anxiety. The documentation in the history of HPI and plan were at least partially created by [employer] voice recognition technology by Dr. Vincent. Errors in grammar, wording or other phrases may exist. If errors are found after the documentation signed, they will be addressed individually in the addendum section of this document when appropriate. History of Present Illness HPI: The chart was reviewed, the patient was seen and examined independently. Case was discussed with Dr. Stinson. I agree with his history as stated above. All Systems: A 10-system review of systems was performed and is negative for pertinent findings except as documented above in the HPI. Review of Systems: Review of systems is consistent with a history of present illness and otherwise made negative. Physical Examination - Vital Signs Vital Signs: Initial Vital Signs Temp Pulse Resp BP Pulse Ox 97.9 F 70 12 141/82 99 10/06/16 05:26 10/06/16 05:26 10/06/16 05:26 10/06/16 05:26 10/06/16 05:26 - Neurologic Motor examination - right side: 4/5: fire protection inspector Reflexes: Biceps: 1+, Triceps: 1+, Brachioradialis: 1+, Patella: 0, Achilles: 0 Results - Laboratory Findings CBC and BMP: 10/13/16 04:06 10/13/16 04:06 Abnormal lab findings: Abnormal lab results RBC 4.04 M/mcL (4.19-5.50) L 10/13/16 04:06 Hgb 9.6 g/dL (12.9-16.9) L 10/13/16 04:06 Hct 30.7 % (37.5-50.1) L 10/13/16 04:06 MCV 76.0 fL (83.0-100.0) L 10/13/16 04:06 MCH 23.8 pg (28.0-33.3) L 10/13/16 04:06 MCHC 31.3 g/dL (31.6-35.5) L 10/13/16 04:06 RDW 16.5 % (11.5-14.5) H 10/13/16 04:06 PT 14.5 Seconds (9.4-12.1) H 10/12/16 04:30 ABG pO2 80 mmHg (85-104) L 10/12/16 00:25 ABG Hematocrit 24 % (35-51) L 10/11/16 10:39 Sodium 133 mEq/L (135-148) L 10/11/16 10:39 Potassium 3.3 mEq/L (3.5-5.3) L 10/11/16 10:39 Glucose 152 mg/dL (60-95) H 10/11/16 10:39 Sodium 134 mEq/L (136-145) L 10/13/16 04:06 Creatinine 1.35 mg/dL (0.72-1.25) H 10/13/16 04:06 Est GFR (Non-Af Amer) 51 (> 60) L 10/13/16 04:06 Glucose 108 mg/dL (70-99) H 10/13/16 04:06 Hemoglobin A1c 5.9 % (-5.6) H 10/06/16 11:22 Calcium 8.3 mg/dL (8.6-10.8) L 10/13/16 04:06 Iron 38 mcg/dL (65-175) L 10/08/16 04:01 % Saturation 9 % (20-55) L 10/08/16 04:01 Ferritin 18 ng/ml (22-275) L 10/08/16 04:01 Globulin 3.6 g/dL (2.4-3.5) H 10/06/16 05:36 Triglycerides 340 mg/dL (< 150) H 10/06/16 11:22 VLDL Cholesterol, Calc 68 mg/dL (< 31) H 10/06/16 11:22 HDL Cholesterol 28 mg/dL (40-59) L 10/06/16 11:22 Cholesterol/HDL Ratio 5.9 (0-4.9) H 10/06/16 11:22
[2016-10-13] MEDS ORDERED: *HR* Morphine 2 MG/ML SYRINGE ONE (11:40)
[2016-10-13] MEDS ORDERED: Lidocaine -MPF 2% 5 ML VIAL INFILT ONE (11:49)
[2016-10-13] MEDS ORDERED: *HR* Morphine 2 MG/ML SYRINGE IVP ONE (12:03)
--- NOTE | 2016-10-13 12:16 | Operative Note ---
Date of procedure: 10/13/16 Procedure in Detail: Preoperative diagnosis. Right pneumothorax. Postoperative diagnosis. Same. Procedures. Right #[address] Quang Chicas. The patient is an 81-year-old woman who underwent open heart surgery 2 days ago. His chest tubes were removed this morning. After this, a portable chest x-ray revealed a 30% right pneumothorax. The patient had some right chest pain, but his O2 saturations were above 90. There is also a very small left pneumothorax. A consent for a right chest tube was obtained. The right side was marked and a stop sign was placed on the left side. The patient was prepped and draped with the right side up. After appropriate timeout, the midclavicular line was numbed with 1% lidocaine without epinephrine. A standard incision was made using a #10 blade. This was carried down using a tonsil clamp to the intercostal space. The intercostal space was entered and this was followed by a gush of air. A #28 chest tube was inserted without difficulty. This was sewn twice to the skin using 2 #2-0 silk sutures. The tube was then attached to a Pleur-evac. The patient had a small air leak with cough. The wound was dressed in standard fashion. A stat portable chest x-ray was ordered. At the conclusion of the procedure, the O2 saturations were better than 90.
[2016-10-13] MEDS ORDERED: Furosemide 20 MG/2 ML VIAL IVP SCH (17:00)
[2016-10-14] MEDS: *HR* OxyCODONE/APAP 5/325 TABLET PO PRN ×4 (03:28→18:18)
[2016-10-14 04:02] LABS: Basophils % 0.3 %; Eosinophils % 0.6 %; Hemoglobin 9.9 g/dL (12.9-16.9); Immature Granulocytes % 0.7 % (0-4); Lymphocytes # 0.8 K/mcL (0.6-4.6); Lymphocytes % 10.4 %; Mean Corpuscular HGB Conc 30.9 g/dL (31.6-35.5); Mean Corpuscular Hemoglobin 23.4 pg (28.0-33.3); Mean Corpuscular Volume 75.7 fL (83.0-100.0); Mean Platelet Volume 10.4 fL (9.4-12.4); Monocytes # 0.6 K/mcL (0.0-1.3); Neutrophils # 5.8 K/mcL (1.6-8.9); Platelet Count 153 K/mcL (140-400); Red Blood Count 4.23 M/mcL (4.19-5.50); Red Cell Distribution Width 16.9 % (11.5-14.5)
[2016-10-14 04:25] LABS: BUN/Creatinine Ratio 19 (6-26); Blood Urea Nitrogen 25 mg/dL (8-26); Calcium 8.6 mg/dL (8.6-10.8); Carbon Dioxide 23 mEq/L (19-29); Chloride 95 mEq/L (98-109); Glucose 109 mg/dL (70-99); Osmolality,Calculated 273 (280-300); Potassium 4.3 mEq/L (3.5-4.5); Sodium 129 mEq/L (136-145); eGFR For African Americans > 60 (> 60); eGFR For Non-African Americans 53 (> 60)
[2016-10-14] MEDS: *HR* Heparin 5,000 UNIT/ML VIAL SQ SCH ×2 (05:12→18:18)
[2016-10-14] MEDS: Insulin LISPRO 300 UNITS/3 ML VIAL SQ SCH ×4 (07:57→21:44)
[2016-10-14] MEDS: Aspirin Enteric Coated 81 MG Tablet PO SCH (07:58)
[2016-10-14] MEDS: Chlorhexidine Rinse 15 ML MOUTHWASH MM SCH ×2 (07:59→21:44)
--- NOTE | 2016-10-14 08:27 | Cardiothoracic Progress Note ---
Date of Encounter: 10/14/16 Time of Encounter: 08:25 - Assessment and plan (1) Elevated troponin Current Visit: Yes Status: Acute I discontinued the chest tube suction. I will increase the patient's Lopressor dosage. The patient has transfer orders and is awaiting a bed on the floor. - Subjective Interval history: The patient states that he feels much better after the chest tube. He has no complaints other than mild postoperative pain. Vital Signs, Last 4 Hours Temp Pulse Resp BP Pulse Ox 10/14/16 07:46 98.0 F 10/14/16 07:39 112 20 120/74 97 10/14/16 07:36 22 98 10/14/16 04:41 18 139/69 96 Oxgyen Flow Rate Oxygen Flow Rate (LPM) 2 Clinical Data, last 8 Hours Output, Chest Tube Drainage 8 Amount [Right Lateral Chest #1 ] Output, Urine Amount 300 Weight 10/12/16 10/13/16 10/14/16 23:59 23:59 23:59 Weight 115.9 kg Lungs are clear to percussion and auscultation. Heart is in an atrial fibrillation with a controlled rate. All incisions are healing well without signs of infection and the sternum is stable. Chest tube drainage is minimal and there is no air leak. Chest x-ray reveals no pneumothorax. - Labs 10/14/16 03:43 10/14/16 03:43 Lab Results, Last 24 hours 10/14/16 10/14/16 03:43 03:43 WBC 7.2 Hgb 9.9 L Hct 32.0 L Plt Count 153 Sodium 129 L Potassium 4.3 Chloride 95 L Carbon Dioxide 23 BUN 25 Creatinine 1.31 H Glucose 109 H Calcium 8.6 - VTE Documentation of Mechanical Device: Graduated compression elastic hosiery Consult Discharge Plan - Plan Referrals: Jose Jennings AIRCRAFT TIME CLERK [Advanced Practice Nurse] - 11/09/16 2:00 pm [facility] Care Provider[facility] -
[2016-10-14] MEDS ORDERED: Pantoprazole 40 MG VIAL IVP SCH (09:00)
[2016-10-14] MEDS: *HR* Amiodarone 200 MG TABLET PO SCH ×2 (09:53→21:44)
--- NOTE | 2016-10-14 09:55 | Neurology Progress Note ---
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 Patient developed new onset atrial fibrillation during this hospital stay, CHADSVSCS score is more than 2, consider starting him on anticoagulation therapy when patient is more stable, patient is status post chest tube placement and coronary artery bypass grafting. Also risk factor modifications of hypertension and hyperlipidemia, patient is currently on baby aspirin and Lipitor. Subjective Principal diagnosis: Tingling/numbness of bilateral upper extremities Interval history: Patient seen and examined. No acute events overnight, this morning patient was having mild chest wall tenderness, patient states that his bilateral upper extremities tingling/numbness improved compared to yesterday. Objective - Constitutional Vitals: Temp Pulse Resp BP Pulse Ox 98.0 F 118 20 120/74 97 10/14/16 07:46 10/14/16 07:39 10/14/16 07:39 10/14/16 07:39 10/14/16 07:39 General appearance: Present: cooperative, A&O X 3, pleasant, no acute distress, obese - Head Head exam: Present: atraumatic, normal inspection, normocephalic - Eye Eye exam: Present: EOMI, PERRL - Extremities Exam Extremities exam: Present: full ROM, normal capillary refill, normal inspection , warm, radial pulses palpable and symetrical. Absent: calf tenderness, cyanotic, joint swelling, pedal edema, tenderness - Neurological Exam Sensorimotor examination: Present: intact Motor Examination: Present: full strength in all major muscle groups. Absent: grossly full strength in all extremities (Slight weaker on right upper extremity with hand dough panner) Motor examination - right side: 4/5: dough panner, 5/5: deltoids, biceps, triceps, wrist flexion, wrist extension Motor examination - left side: 5/5: deltoids, biceps, triceps, wrist flexion, wrist extension, dough panner Sensation intact: Present: intact Reflex and gait examination: intact Reflexes: Biceps: 2+, Triceps: 2+, Brachioradialis: 2+, Patella: 2+, Achilles: 2 + Mental Status Examination: Present: awake, alert, oriented to person, oriented to place, oriented to time, follows commands appropriately, answers questions appropriately, no agnosia, no aphasia, no aproxia Cranial nerve examination: Present: PERRL, EOMI, visual levi intact, sensory to face intact, mastication intact, no facial asymmetry is present, no dysarthria, hearing is intact symmetrically, soft palate elevates bilaterally upon phonation, gag reflex intact, tongue protrudes midline, no atrophy or facial fasiculations present Cerebellar examination: Present: no dysmetria, performs finger to nose and heel to east symmetrically without ataxia, no truncal ataxia, no difficulty with rapid alternating movements - VTE Documentation of Mechanical Device: Graduated compression elastic hosiery Results - Laboratory Findings CBC and BMP: 10/14/16 03:43 10/14/16 03:43 Abnormal lab findings: Abnormal lab results Hgb 9.9 g/dL (12.9-16.9) L 10/14/16 03:43 Hct 32.0 % (37.5-50.1) L 10/14/16 03:43 MCV 75.7 fL (83.0-100.0) L 10/14/16 03:43 MCH 23.4 pg (28.0-33.3) L 10/14/16 03:43 MCHC 30.9 g/dL (31.6-35.5) L 10/14/16 03:43 RDW 16.9 % (11.5-14.5) H 10/14/16 03:43 PT 14.5 Seconds (9.4-12.1) H 10/12/16 04:30 ABG pO2 80 mmHg (85-104) L 10/12/16 00:25 ABG Hematocrit 24 % (35-51) L 10/11/16 10:39 Sodium 133 mEq/L (135-148) L 10/11/16 10:39 Potassium 3.3 mEq/L (3.5-5.3) L 10/11/16 10:39 Glucose 152 mg/dL (60-95) H 10/11/16 10:39 Sodium 129 mEq/L (136-145) L 10/14/16 03:43 Chloride 95 mEq/L (98-109) L 10/14/16 03:43 Creatinine 1.31 mg/dL (0.72-1.25) H 10/14/16 03:43 Est GFR (Non-Af Amer) 53 (> 60) L 10/14/16 03:43 Glucose 109 mg/dL (70-99) H 10/14/16 03:43 Hemoglobin A1c 5.9 % (-5.6) H 10/06/16 11:22 Calculated Osmolality 273 (280-300) L 10/14/16 03:43 Iron 38 mcg/dL (65-175) L 10/08/16 04:01 % Saturation 9 % (20-55) L 10/08/16 04:01 Ferritin 18 ng/ml (22-275) L 10/08/16 04:01 Globulin 3.6 g/dL (2.4-3.5) H 10/06/16 05:36 Triglycerides 340 mg/dL (< 150) H 10/06/16 11:22 VLDL Cholesterol, Calc 68 mg/dL (< 31) H 10/06/16 11:22 HDL Cholesterol 28 mg/dL (40-59) L 10/06/16 11:22 Cholesterol/HDL Ratio 5.9 (0-4.9) H 10/06/16 11:22 Consult Discharge Plan - Plan Referrals: Jose Jennings, PLANT AND MAINTENANCE TECHNICIAN [Advanced Practice Nurse] - 11/09/16 2:00 pm [facility] Care [facility] - <Ramo Vincent - Last Filed: 10/14/16 17:27> Date of Encounter: 10/14/16 Time of Encounter: 17:22 Assessment and Plan (1) Numbness and tingling of hand Current Visit: Yes Status: Acute I agree with the note as stated above. I ultimately feel that he may have suffered a minor TIA vs. paresthesias associated with pain/ hyperventilation. No evidence of CURVE SAW OPERATOR, spinal cord or peripheral nerve injury. I will reevaluate at your request. Subjective Interval history: the chart was reviewed, the patient was seen and examined independently. Case was discussed with the resident. I did personally review the MRI brain. There is a very small microinfarct in the left cerebellar hemisphere. Too small to be symptomatic, and not in the right location to cause numbness or weakness. Pt. alerrt and oriented. NAD, no complaints. Objective - Constitutional Vitals: Temp Pulse Resp BP Pulse Ox 98.0 F 68 19 125/65 98 10/14/16 15:31 10/14/16 16:00 10/14/16 15:58 10/14/16 12:29 10/14/16 15:58 Results - Laboratory Findings CBC and BMP: 10/14/16 03:43 10/14/16 03:43 Abnormal lab findings: Abnormal lab results Hgb 9.9 g/dL (12.9-16.9) L 10/14/16 03:43 Hct 32.0 % (37.5-50.1) L 10/14/16 03:43 MCV 75.7 fL (83.0-100.0) L 10/14/16 03:43 MCH 23.4 pg (28.0-33.3) L 10/14/16 03:43 MCHC 30.9 g/dL (31.6-35.5) L 10/14/16 03:43 RDW 16.9 % (11.5-14.5) H 10/14/16 03:43 PT 14.5 Seconds (9.4-12.1) H 10/12/16 04:30 ABG pO2 80 mmHg (85-104) L 10/12/16 00:25 ABG Hematocrit 24 % (35-51) L 10/11/16 10:39 Sodium 133 mEq/L (135-148) L 10/11/16 10:39 Potassium 3.3 mEq/L (3.5-5.3) L 10/11/16 10:39 Glucose 152 mg/dL (60-95) H 10/11/16 10:39 Sodium 129 mEq/L (136-145) L 10/14/16 03:43 Chloride 95 mEq/L (98-109) L 10/14/16 03:43 Creatinine 1.31 mg/dL (0.72-1.25) H 10/14/16 03:43 Est GFR (Non-Af Amer) 53 (> 60) L 10/14/16 03:43 Glucose 109 mg/dL (70-99) H 10/14/16 03:43 POC Glucose 90 (58-89) H 10/14/16 15:25 Hemoglobin A1c 5.9 % (-5.6) H 10/06/16 11:22 Calculated Osmolality 273 (280-300) L 10/14/16 03:43 Iron 38 mcg/dL (65-175) L 10/08/16 04:01 % Saturation 9 % (20-55) L 10/08/16 04:01 Ferritin 18 ng/ml (22-275) L 10/08/16 04:01 Globulin 3.6 g/dL (2.4-3.5) H 10/06/16 05:36 Triglycerides 340 mg/dL (< 150) H 10/06/16 11:22 VLDL Cholesterol, Calc 68 mg/dL (< 31) H 10/06/16 11:22 HDL Cholesterol 28 mg/dL (40-59) L 10/06/16 11:22 Cholesterol/HDL Ratio 5.9 (0-4.9) H 10/06/16 11:22
--- NOTE | 2016-10-14 11:53 | Electrocardiograph Report ---
[address] [place], [place] [address] Test Date: 2016-10-13 Pat Name: Bebeto Pagan Department: 109 Room: [facility] Gender: M Cabin Service Agent: : 1935 Requested By: Marya Delaney Order Number: [id number] Reading MD: Danny Napier MD Measurements Intervals [place] Rate: 108 P: [place]: 0 QRS: 16 QRSD: 106 T: -38 QT: 358 QTc: 422 Interpretive Statements ATRIAL FIBRILLATION WITH RAPID VENTRICULAR RESPONSE Electronically Signed On 10-14-2016 11:51:54 EDT by Danny Napier MD
[2016-10-15 01:34] LABS: Basophils % 0.4 %; Eosinophils # 0.1 K/mcL (0.0-0.6); Eosinophils % 0.8 %; Hematocrit 31.6 % (37.5-50.1); Lymphocytes # 0.9 K/mcL (0.6-4.6); Lymphocytes % 12.3 %; Mean Corpuscular HGB Conc 31.6 g/dL (31.6-35.5); Mean Corpuscular Hemoglobin 23.9 pg (28.0-33.3); Mean Corpuscular Volume 75.4 fL (83.0-100.0); Mean Platelet Volume 10.4 fL (9.4-12.4); Monocytes # 0.7 K/mcL (0.0-1.3); Monocytes % 10.2 %; Neutrophils # 5.3 K/mcL (1.6-8.9); Platelet Count 181 K/mcL (140-400); Red Blood Count 4.19 M/mcL (4.19-5.50); Red Cell Distribution Width 16.8 % (11.5-14.5); Segmented Neutrophils % 75.3 %
[2016-10-15 01:46] LABS: BUN/Creatinine Ratio 24 (6-26); Blood Urea Nitrogen 29 mg/dL (8-26); Calcium 9.1 mg/dL (8.6-10.8); Carbon Dioxide 27 mEq/L (19-29); Chloride 96 mEq/L (98-109); Glucose 98 mg/dL (70-99); Osmolality,Calculated 278 (280-300); Potassium 4.3 mEq/L (3.5-4.5); Sodium 131 mEq/L (136-145); eGFR For African Americans > 60 (> 60); eGFR For Non-African Americans 58 (> 60)
[2016-10-15] MEDS: *HR* OxyCODONE/APAP 5/325 TABLET PO PRN ×3 (04:17→20:02)
[2016-10-15] MEDS: *HR* Heparin 5,000 UNIT/ML VIAL SQ SCH ×2 (06:06→17:22)
--- NOTE | 2016-10-15 07:21 | Cardiothoracic Progress Note ---
Date of Encounter: 10/15/16 Time of Encounter: 07:19 - Assessment and plan (1) Elevated troponin Current Visit: Yes Status: Acute I will remove the chest tube later today. Hopefully, the patient can be discharged this weekend. - Subjective Interval history: The patient has no complaints and is anxious to be discharged. Vital Signs, Last 4 Hours Temp Pulse Resp BP Pulse Ox 10/15/16 04:15 16 95 10/15/16 04:00 98.3 F 66 14 137/69 95 Oxgyen Flow Rate Oxygen Flow Rate (LPM) 2 Clinical Data, last 8 Hours Output, Chest Tube Drainage 0 Amount [Right Lateral Chest #1 ] Output, Urine Amount 200 Weight 10/13/16 10/14/16 10/15/16 23:59 23:59 23:59 Weight 115.9 kg Lungs are clear to percussion and auscultation. He is back in normal sinus rhythm. All incisions are healing well without signs of infection and the sternum is stable. Chest tube drainage is minimal and there is no air leak. Chest x-ray on water seal reveals no pneumothorax. - Labs 10/15/16 01:15 10/15/16 01:15 Lab Results, Last 24 hours 10/15/16 10/15/16 01:15 01:15 WBC 7.1 Hgb 10.0 L Hct 31.6 L Plt Count 181 Sodium 131 L Potassium 4.3 Chloride 96 L Carbon Dioxide 27 BUN 29 H Creatinine 1.20 Glucose 98 Calcium 9.1 - VTE Documentation of Mechanical Device: Graduated compression elastic hosiery Consult Discharge Plan - Plan Referrals: Jose Jennings CNP [Advanced Practice Nurse] - 11/09/16 2:00 pm [facility] Care Provider[facility] -
[2016-10-15] MEDS: Insulin LISPRO 300 UNITS/3 ML VIAL SQ SCH ×4 (08:28→20:04)
[2016-10-15] MEDS: Chlorhexidine Rinse 15 ML MOUTHWASH MM SCH ×2 (08:34→20:03)
[2016-10-15] MEDS: Aspirin Enteric Coated 81 MG Tablet PO SCH (08:34)
[2016-10-15] MEDS: *HR* Amiodarone 200 MG TABLET PO SCH ×2 (08:35→20:01)
[2016-10-15] MEDS: Furosemide 20 MG/2 ML VIAL IVP SCH ×2 (12:52→17:23)
[2016-10-16 00:48] LABS: Basophils % 0.4 %; Eosinophils # 0.1 K/mcL (0.0-0.6); Eosinophils % 1.9 %; Hematocrit 32.3 % (37.5-50.1); Hemoglobin 10.4 g/dL (12.9-16.9); Immature Granulocytes % 0.5 % (0-4); Lymphocytes # 1.3 K/mcL (0.6-4.6); Lymphocytes % 17.6 %; Mean Corpuscular HGB Conc 32.2 g/dL (31.6-35.5); Mean Corpuscular Hemoglobin 24.5 pg (28.0-33.3); Mean Platelet Volume 10.6 fL (9.4-12.4); Monocytes # 0.8 K/mcL (0.0-1.3); Monocytes % 11.5 %; Platelet Count 232 K/mcL (140-400); Red Blood Count 4.25 M/mcL (4.19-5.50); Red Cell Distribution Width 17.4 % (11.5-14.5); Segmented Neutrophils % 68.1 %
[2016-10-16 01:05] LABS: Calcium 9.2 mg/dL (8.6-10.8); Potassium 3.7 mEq/L (3.5-4.5)
[2016-10-16] MEDS: *HR* OxyCODONE/APAP 5/325 TABLET PO PRN ×4 (04:42→20:39)
[2016-10-16] MEDS: *HR* Heparin 5,000 UNIT/ML VIAL SQ SCH (04:44)
[2016-10-16] MEDS: Insulin LISPRO 300 UNITS/3 ML VIAL SQ SCH ×4 (07:39→20:48)
[2016-10-16] MEDS: Furosemide 20 MG/2 ML VIAL IVP SCH ×2 (07:40→17:15)
[2016-10-16] MEDS: Aspirin Enteric Coated 81 MG Tablet PO SCH (07:40)
[2016-10-16] MEDS: Chlorhexidine Rinse 15 ML MOUTHWASH MM SCH ×2 (07:40→20:39)
[2016-10-16] MEDS: *HR* Amiodarone 200 MG TABLET PO SCH (07:40)
--- NOTE | 2016-10-16 09:06 | Cardiothoracic Progress Note ---
Date of Encounter: 10/16/16 Time of Encounter: 09:05 - Assessment and plan (1) Elevated troponin Current Visit: Yes Status: Acute The patient will ambulate today. Hopefully, he can be discharged tomorrow. - Subjective Interval history: The patient has no complaints. He has been ambulating and is anxious to be discharged. Vital Signs, Last 4 Hours Temp Pulse Resp BP Pulse Ox 10/16/16 08:20 16 139/74 93 10/16/16 07:47 73 10/16/16 07:39 98.0 F 70 18 139/74 98 Oxgyen Flow Rate Oxygen Flow Rate (LPM) 2 Clinical Data, last 8 Hours Output, Urine Amount 225 Output, Urine Amount 280 Output, Urine Amount 350 Lungs are clear to percussion and auscultation. Heart is in a normal sinus rhythm. All incisions are healing well without signs of infection and the sternum is stable. Chest x-ray after chest tube removal reveals no pneumothorax. - Labs 10/16/16 00:16 10/16/16 00:16 Lab Results, Last 24 hours 10/16/16 10/16/16 00:16 00:16 WBC 7.3 Hgb 10.4 L Hct 32.3 L Plt Count 232 Sodium 132 L Potassium 3.7 Chloride 94 L Carbon Dioxide 28 BUN 39 H D Creatinine 1.45 H Glucose 98 Calcium 9.2 - VTE Documentation of Mechanical Device: Graduated compression elastic hosiery Consult Discharge Plan - Plan Referrals: Jose Jennings CNP [Advanced Practice Nurse] - 11/09/16 2:00 pm [facility] [Primary Care Provider] -
--- NOTE | 2016-10-16 09:53 | Cardiology Progress Note ---
Date of Encounter: 10/16/16 Time of Encounter: 09:51 Assessment and Plan (1) CAD (coronary artery disease) Current Visit: Yes Status: Acute LHC revealed severe [address] surgery consulted, now s/p CABG x 3. ASA, Statin, BB. Echo EF 60%, mild diastolic dysfunction, no significant valvular dysfunction. Qualifiers: Coronary Disease-Associated Artery/Lesion type: [place] artery [place] vs. transplanted heart: [place] heart Associated angina: without angina Qualified Code(s): I25.10 - Atherosclerotic heart disease of [place] coronary artery without angina pectoris (2) PAF (paroxysmal atrial fibrillation) Current Visit: Yes Status: Acute New diagnosis, developed s/p CABG. 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 A-Fib at bedside with HR 90s-low 100s. On Lopressor 50mg BID and Amiodarone 400mg BID. Recommend decreasing to 400mg daily and discharge. Increase Lopressor to 75mg BID. CHADSVASC score 6 (Age, HTN, CAD, CVA). Recommend fdc anticoagulation. Discussed NOACs vs Coumadin, pt prefers NOAC. [facility], so will start Xarelto 20mg daily since [facility]. Creatinine clearance 66, so no dose adjustment needed. Will schedule outpt follow-up with Cardiology. Cardiology signing off. Reconsult PRN. (3) Renal insufficiency Current Visit: Yes Status: Acute Unclear baseline, appears stage 3 during inpt stay. Creatinine clearance 66. Discussion w patient/family: The assessment and plan as outlined above was discussed with the patient and/or family members who expressed understanding and agreement. All questions were answered. Thank you for involving us in the care of your patient. Please call with any questions. I will discuss all the above with Dr. Gonzales and make changes as necessary. Subjective Principal diagnosis: Tingling/numbness of bilateral upper extremities Interval history: S/P CABG x 3. 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 Cardiology reconsulted for A-Fib recommendations. Pt denies acute complaints this AM. Currently in A-Fib. Objective Vital Signs, Last 4 Hours Temp Pulse Resp BP Pulse Ox 10/16/16 08:20 16 139/74 93 10/16/16 07:47 73 10/16/16 07:39 98.0 F 70 18 139/74 98 Vital Signs Temp Pulse Resp BP Pulse Ox 10/16/16 08:20 16 139/74 93 10/16/16 07:47 73 10/16/16 07:39 98.0 F 70 18 139/74 98 10/16/16 04:47 97.9 F 66 16 147/77 98 10/16/16 03:54 16 93 10/15/16 23:55 97.8 F 62 18 149/72 97 10/15/16 23:13 16 98 10/15/16 19:58 98.4 F 73 18 146/74 96 10/15/16 19:55 16 97 10/15/16 19:50 76 10/15/16 16:02 98.0 F 68 18 147/73 98 10/15/16 15:30 16 99 10/15/16 15:21 67 10/15/16 12:00 98.1 F 64 16 130/61 99 10/15/16 11:46 64 10/15/16 11:05 16 98 Intake and Output 10/15/16 10/16/16 10/16/16 23:59 07:59 15:59 Intake Total 300 / 300 400 / 400 Output Total 750 / 750 855 / 855 350 / 350 Balance -450 / -450 -455 / -455 -350 / -350 Intake: Oral 300 / 300 400 / 400 Output: Urine 750 / 750 855 / 855 350 / 350 Other: Stool Size Large Stool Consistency liquid soft Stool Characteristics Normal for Patient Stool Color Brown Blood Glucose* 141 109 General: Conversant, No Apparent Distress HEENT: Atraumatic, Normocephaly, Mucus Membranes Moist Neck: No JVD, Normal carotid pulses Cardiac: Other (irregularly irregular) Lungs: Other (diminished) Neuro: Alert and responsive, No focal deficits noted Abdomen: Soft, Non-Tender Skin: Other (dressing over sternotomy site) Musculoskeletal: Other (tender s/p CABG) Extremities: No Clubbing, No Cyanosis, No Edema, Normal Pulses Results 10/16/16 00:16 10/16/16 00:16 Lab Results 10/16/16 10/16/16 00:16 00:16 WBC 7.3 Hgb 10.4 L Hct 32.3 L Plt Count 232 Sodium 132 L Potassium 3.7 Chloride 94 L Carbon Dioxide 28 BUN 39 H D Creatinine 1.45 H Glucose 98 Calcium 9.2 Short CBC 10/16/16 Range/Units 00:16 WBC 7.3 (4.3-11.1) K/mcL Hgb 10.4 L (12.9-16.9) g/dL Hct 32.3 L (37.5-50.1) % Plt Count 232 (140-400) K/mcL Neutrophils # 5.0 (1.6-8.9) K/mcL BMP 10/16/16 Range/Units 00:16 Sodium 132 L (136-145) mEq/L Potassium 3.7 (3.5-4.5) mEq/L Chloride 94 L (98-109) mEq/L Carbon Dioxide 28 (19-29) mEq/L BUN 39 H D (8-26) mg/dL Creatinine 1.45 H (0.72-1.25) mg/dL Glucose 98 (70-99) mg/dL Calcium 9.2 (8.6-10.8) mg/dL Impressions Chest X-Ray 10/15/16 11:56 IMPRESSION: No pneumatosis crash that stable chest. No pneumothorax status post chest tube removal. D/ / Cedric Wilson MD / Cedric Wilson MD Interpreting Provider: Cedric Wilson MD Chest X-Ray 10/16/16 00:01 IMPRESSION: Improved left basilar aeration. No definite pneumothorax. D/ / Aleksey Dutta MD / Aleksey Dutta MD Interpreting Provider: Aleksey Dutta MD Active Medications Acetaminophen (Tylenol) 650 mg PO Q6HR PRN PRN Reason: FEVER/PAIN Stop: 04/12/17 11:49 Albuterol Sulfate (Albuterol Inhaler) 2 puff IH [id number] SHAMIR Stop: 04/12/17 12:01 Last Admin: 10/16/16 08:20 Dose: 2 puff Amiodarone HCl (Cordarone) 400 mg PO BID [facility] Stop: 04/13/17 09:01 Last Admin: 10/16/16 07:40 Dose: 400 mg Aspirin (Aspirin Ec) 81 mg PO DAILY SHAM[facility] Stop: 04/08/17 09:01 Last Admin: 10/16/16 07:40 Dose: 81 mg Atorvastatin Calcium (Lipitor) 40 mg PO HS [facility] Stop: 04/07/17 21:01 Last Admin: 10/15/16 20:02 Dose: 40 mg Chlorhexidine Gluconate (Chlorhexidine Rinse) 15 ml MM BID [facility] Stop: 04/12/17 21:01 Last Admin: 10/16/16 07:40 Dose: 15 ml Dextrose/Water (Dextrose 50% (Syg)) 25 ml IVP AD PRN PRN Reason: Hypoglycemia Stop: 04/13/17 12:16 Docusate Sodium (Colace) 100 mg PO BID [facility] Stop: 04/13/17 09:01 Last Admin: 10/16/16 07:40 Dose: 100 mg Furosemide (Lasix) 20 mg IVP BIDDIURETIC SHAM[facility] Stop: 04/16/17 12:01 Last Admin: 10/16/16 07:40 Dose: 20 mg Glucagon (Glucagen) 1 mg IM ONCE PRN PRN Reason: Hypoglycemia Stop: 04/13/17 12:16 Glucose (Gluctose) 15 gm PO ONCE PRN PRN Reason: Hypoglycemia Stop: 04/13/17 12:16 Glucose (Gluctose) 30 gm PO ONCE PRN PRN Reason: Hypoglycemia Stop: 04/13/17 12:16 Heparin Sodium (Porcine) (Heparin) 5,000 unit SQ Q12HCO [facility] Stop: 04/13/17 07:16 Last Admin: 10/16/16 04:44 Dose: 5,000 unit Dextrose (Dextrose 5%) 1,000 mls @ 100 mls/hr IVC .Q10H PRN PRN Reason: HYPOGLYCEMIA Stop: 04/13/17 12:16 Insulin Human Lispro (Humalog) 0 units SQ HS [facility] PRN Reason: Protocol Stop: 04/13/17 21:01 Last Admin: 10/15/16 20:04 Dose: Not Given Insulin Human Lispro (Humalog) 0 units SQ TIDAC [facility] PRN Reason: Protocol Stop: 04/13/17 12:16 Last Admin: 10/16/16 07:39 Dose: Not Given Meclizine HCl (Antivert) 12.5 mg PO TID PRN PRN Reason: DIZZINESS Stop: 04/07/17 11:13 Metoprolol Tartrate (Lopressor) 50 mg PO BID [facility] Stop: 04/15/17 09:01 Last Admin: 10/16/16 07:40 Dose: 50 mg Morphine Sulfate (Morphine Sulfate) 3 mg IVP Q1H PRN PRN Reason: Moderate Pain Stop: 04/12/17 11:49 Last Admin: 10/13/16 23:47 Dose: 3 mg Naloxone HCl (Narcan) 0.4 mg IVP Q2MIN PRN PRN Reason: Opioid Reversal Stop: 04/07/17 11:11 Nitroglycerin (Nitroglycerin) 0.4 mg SL Q5MIN PRN PRN Reason: Chest Pain Stop: 04/07/17 13:09 Omeprazole (Prilosec) 20 mg PO DAILY@0730 [facility] Stop: 04/16/17 07:31 Last Admin: 10/16/16 07:40 Dose: 20 mg Ondansetron HCl (Zofran) 4 mg IVP Q6H PRN PRN Reason: Nausea And Vomiting Stop: 04/12/17 11:49 Oxycodone/Acetaminophen (Percocet 5/325) 1 each PO Q4HR PRN PRN Reason: Severe Pain Stop: 04/12/17 11:49 Last Admin: 10/16/16 09:30 Dose: 1 each - Imaging and Cardiology Echo: report reviewed Cardiac cath: report reviewed - EKG Interpretation EKG results cardiology: other (24 hour tele AVG HR 69, PAF) - VTE Documentation of Mechanical Device: Graduated compression elastic hosiery Consult Discharge Plan - Plan Referrals: Jose Jennings PRODUCTION EDITOR [Advanced Practice Nurse] - 11/09/16 2:00 pm [facility] Care Provider[facility] -
[2016-10-16] MEDS: *HR* Rivaroxaban 10 MG TABLET PO SCH (11:40)
--- NOTE | 2016-10-16 11:45 | Internal Med Progress Note ---
Date of Encounter: 10/16/16 Time of Encounter: 10:00 - Assessment and plan (1) Lung nodule Current Visit: Yes Status: Acute Assessment and plan: Incidental CTA finding, bilateral in right middle lobe and left upper lobe, both 4mm nodules High risk due to history of smoking Plan: -f/u with pulmonology as an outpatient. (2) PRAVEEN (acute kidney injury) Current Visit: Yes Status: Acute Assessment and plan: Patient stable. Creatinine generally stable, will encourage oral hydration. (3) Unstable angina Current Visit: Yes Status: Acute Assessment and plan: Patient currently without chest pain, S/P CABG Plan: -Continue medical treatment with ASA, BB, Statin (4) CAD (coronary artery disease) Current Visit: Yes Status: Acute Assessment and plan: Known history of CAD, currently triple-vessel disease. S/P CABG. Patient stable. Plan: -Continue ASA, BB, statin Qualifiers: Coronary Disease-Associated Artery/Lesion type: [place] artery [place] vs. transplanted heart: [place] heart Associated angina: without angina Qualified Code(s): I25.10 - Atherosclerotic heart disease of [place] coronary artery without angina pectoris (5) DVT prophylaxis Current Visit: Yes Status: Acute Assessment and plan: Pt is on xarelto. (6) PAF (paroxysmal atrial fibrillation) Current Visit: Yes Status: Acute Assessment and plan: PAF developped after CABG. On BB for rate control and xarelto for anticoagulation. Cardiology consult appreciated. - Time Spent With Patient 25 - 35 minutes - Subjective Interval history: Patient is a 81-year-old male admitted for unstable angina. Patient had LHC and was found triple-vessel stenosis. Patient had CABG by CT surgery. After surgery, patient recover well but did develop A. fib. I saw and examined the patient today. He is awake alert, oriented 3. Complaining of pain in the incision site. Denies chest pain or shortness of breath. Vitals are stable. enrober tender shows A. fib with heart rate at 90. cardiology consult appreciated, recommendation will be followed. - Constitutional Vitals: Temp Pulse Resp BP Pulse Ox 98.2 F 74 16 139/74 93 10/16/16 11:00 10/16/16 11:00 10/16/16 11:14 10/16/16 11:14 10/16/16 11:14 General appearance: Present: cooperative, A&O X 3, pleasant, no acute distress, answers questions appropriately - Head Head exam: Present: atraumatic, normocephalic - Eye Eye exam: Present: PERRL, conjuntiva pink, sclera anicteric Pupils: Present: PERRL - Neck Neck exam general surgery: Present: supple, trachea midline. Absent: lymphadenopathy - Respiratory Respiratory exam: Present: CTAB. Absent: accessory muscle use, rales, rhonchi, wheezes - Cardiovascular Cardiovascular exam: Present: RRR, +S1, +S2. Absent: diastolic murmur, gallop, rubs, systolic murmur - GI/Abdominal GI/Abdominal exam: Present: normal bowel sounds, soft, no peritoneal signs. Absent: distended, tenderness - Extremities Exam Extremities exam: Present: warm, radial pulses palpable and symetrical. Absent : calf tenderness, cyanotic, pedal edema - Neurological Exam Neurological exam: Present: CN II-XII intact, oriented X3, no focal deficits. Absent: pronater drift, facial droop, speech deficit - Skin Skin exam: Present: dry, intact Internal Medicine: Result - Labs CBC & Chem 7: 10/16/16 00:16 10/16/16 00:16 Labs: Short CBC 10/16/16 Range/Units 00:16 WBC 7.3 (4.3-11.1) K/mcL Hgb 10.4 L (12.9-16.9) g/dL Hct 32.3 L (37.5-50.1) % Plt Count 232 (140-400) K/mcL Neutrophils # 5.0 (1.6-8.9) K/mcL BMP 10/16/16 00:16 Sodium 132 L Potassium 3.7 Chloride 94 L Carbon Dioxide 28 BUN 39 H D Creatinine 1.45 H Glucose 98 Calcium 9.2 - ABG Interpretation ABG results: ABG ABG pH 7.41 pH Units (7.32-7.45) 10/12/16 00:25 ABG pCO2 36 mmHg (35-45) 10/12/16 00:25 ABG pO2 80 mmHg (85-104) L 10/12/16 00:25 ABG O2 Saturation 96 % (95-98) 10/12/16 00:25 PT/INR, D-dimer PT 14.5 Seconds (9.4-12.1) H 10/12/16 04:30 - Impressions Impressions Chest X-Ray 10/15/16 11:56 IMPRESSION: No pneumatosis crash that stable chest. No pneumothorax status post chest tube removal. D/ / Cedric Wilson MD / Cedric Wilson MD Interpreting Provider: Cedric Wilson MD Chest X-Ray 10/16/16 00:01 IMPRESSION: Improved left basilar aeration. No definite pneumothorax. D/ / Aleksey Dutta MD / Aleksey Dutta MD Interpreting Provider: Aleksey Dutta MD - VTE Documentation of Mechanical Device: Graduated compression elastic hosiery Consult Discharge Plan - Plan Referrals: Jose Jennings BLACKSMITH APPRENTICE [Advanced Practice Nurse] - 11/09/16 2:00 pm [facility] [Primary Care Provider[facility] -
[2016-10-16] MEDS: *HR* Morphine 2 MG/ML SYRINGE IVP PRN (23:37)
[2016-10-17 03:56] LABS: Basophils % 0.7 %; Eosinophils # 0.2 K/mcL (0.0-0.6); Eosinophils % 2.8 %; Hematocrit 34.2 % (37.5-50.1); Hemoglobin 10.6 g/dL (12.9-16.9); Immature Granulocytes % 0.7 % (0-4); Lymphocytes % 17.7 %; Mean Corpuscular Hemoglobin 23.8 pg (28.0-33.3); Mean Corpuscular Volume 76.7 fL (83.0-100.0); Monocytes # 0.6 K/mcL (0.0-1.3); Monocytes % 9.7 %; Neutrophils # 3.9 K/mcL (1.6-8.9); Platelet Count 256 K/mcL (140-400); Red Blood Count 4.46 M/mcL (4.19-5.50); Red Cell Distribution Width 17.7 % (11.5-14.5); Segmented Neutrophils % 68.4 %
[2016-10-17] MEDS: *HR* OxyCODONE/APAP 5/325 TABLET PO PRN ×2 (03:58→08:08)
[2016-10-17 04:08] LABS: BUN/Creatinine Ratio 27 (6-26); Blood Urea Nitrogen 37 mg/dL (8-26); Calcium 9.1 mg/dL (8.6-10.8); Carbon Dioxide 30 mEq/L (19-29); Chloride 94 mEq/L (98-109); Glucose 101 mg/dL (70-99); Osmolality,Calculated 281 (280-300); Potassium 3.8 mEq/L (3.5-4.5); Sodium 131 mEq/L (136-145); eGFR For African Americans > 60 (> 60); eGFR For Non-African Americans 50 (> 60)
[2016-10-17 07:26] VITALS: BP 123/62
[2016-10-17] MEDS: Aspirin Enteric Coated 81 MG Tablet PO SCH (07:59)
[2016-10-17] MEDS: Furosemide 20 MG/2 ML VIAL IVP SCH (07:59)
[2016-10-17] MEDS: *HR* Rivaroxaban 10 MG TABLET PO SCH (07:59)
[2016-10-17] MEDS: Chlorhexidine Rinse 15 ML MOUTHWASH MM SCH (08:00)
[2016-10-17] MEDS: Insulin LISPRO 300 UNITS/3 ML VIAL SQ SCH (08:00)
[2016-10-17] MEDS ORDERED: *HR* Amiodarone 200 MG TABLET PO SCH (09:00)
--- NOTE | 2016-10-17 10:05 | Discharge Summary ---
Date of Encounter: 10/17/16 Time of Encounter: 09:59 - Discharge Diagnosis (1) Elevated troponin Priority: Primary Status: Acute - Discharge Medications Prescriptions: OxyCODONE/APAP 5/325 [Percocet 5/325 MG] 1 each PO Q6HR PRN #30 tablet PRN Reason: Severe Pain Amiodarone [Cordarone] 400 mg PO DAILY #30 tablet Atorvastatin [Lipitor] 40 mg PO HS #30 tablet Metoprolol [Lopressor] 50 mg PO BID #60 tablet Rivaroxaban [Xarelto] 20 mg PO DAILY #30 tablet Home Medications: Acetaminophen [Tylenol] 650 mg PO TID PRN 10/06/16 [History] Aspirin [Lo-Dose Aspirin EC] 81 mg PO DAILY 10/06/16 [History] CloNIDine HCl 0.1 mg PO BID 10/06/16 [History] Losartan Potassium [Cozaar] 50 mg PO DAILY 10/06/16 [History] Meclizine [Antivert] 12.5 mg PO TID PRN 10/06/16 [History] Amiodarone [Cordarone] 400 mg PO DAILY #30 tablet 10/17/16 [Rx] Atorvastatin [Lipitor] 40 mg PO HS #30 tablet 10/17/16 [Rx] Metoprolol [Lopressor] 50 mg PO BID #60 tablet 10/17/16 [Rx] OxyCODONE/APAP 5/325 [Percocet 5/325 MG] 1 each PO Q6HR PRN #30 tablet 10/17/16 [Rx] Rivaroxaban [Xarelto] 20 mg PO DAILY #30 tablet 10/17/16 [Rx] Allergies/Adverse Reactions: Allergies Penicillins Allergy (Verified 10/06/16 05:26) Anaphylaxis Date of admission: 10/06/16 10:56 [facility] physician: [facility] Consults: 10/06/16 12:35 Consult to Cardiology [CONS] Routine Comment: Consulting Provider: Cardiology Lizbet Reason for Consult: Unstable angina Call Completed: No 10/07/16 11:13 Consult to Cardiothoracic Surgery [CONS] Routine Consulting Provider: Cardiothoracic Surgery Lizbet Reason for Consult: cabg Call Completed: Yes 10/11/16 11:48 Consult to Cardiac Rehabilitation-Phase1 [CONS] Routine Comment: Reason for Consult: Post open heart Call Completed: Yes 10/13/16 10:27 Consult for Pharmacy Education [CONS] Routine Reason for Consult: Post-Op Heart Call Completed: Yes Consult to Occupational Therapy [CONS] Routine Comment: Evaluate, develop and implement POC Consult to Physical Therapy [CONS] Routine Comment: Evaluate, develop and implement POC 10/16/16 07:53 Consult to Cardiology [CONS] Routine Comment: Consulting Provider: Justin Somers Reason for Consult: A Fib long winder tender management Call Completed: No Procedure(s) Performed: October 11, 2016. Coronary artery bypass grafting 3, utilizing the left internal mammary artery. Discharging clinician: Quang Chicas Anticipated date of discharge: 10/17/16 - Patient Status Disposition: Home, Self-Care Condition: Fair Functional capacity at discharge: independent ambulation Overall status at discharge: patient is progressing back to baseline - Discharge Instructions Follow Up With: Jose Jennings CNP [Advanced Practice Nurse] - 11/09/16 2:00 pm [facility],PCP [Primary Care Provider] - - Hospital Course Hospital course: Mr. Pagan is a 81 year old male The patient is an 81-year-old gentleman who presented with chest pain and a positive troponin. Echocardiogram revealed good ventricular function and no valvular disease. Cardiac catheterization revealed triple-vessel disease and he was referred for surgery. On October 11, 2016, Dr. Silveira the patient to the operating room for coronary artery bypass grafting 3, utilizing his left internal mammary artery. Postoperatively, the patient complained of some weakness and numbness in both hands. He was seen by Dr. Vincent of neurology. 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 On October 13, 2016, the patient's chest tubes were removed. Post removal chest x-ray revealed a pneumothorax and a right-sided chest tube was inserted. This chest tube was eventually able to be removed and prior to discharge chest x-ray revealed no pneumothorax. The patient did have some atrial fibrillation and was seen by cardiology for this. By the time of discharge he was in normal sinus rhythm. They did start blood thinner. The patient otherwise did well and was discharged on October 17. At that time he was afebrile. Lungs were clear to percussion and auscultation. Heart was in a normal sinus rhythm. All incisions were healing well without signs of infection and the sternum was stable. Discharge medications are on the med rec and include Percocet for pain. I did check the [place] automated Rx reporting system. The patient was given a one-week supply and he was postoperative. Appropriate precautions were given. He was treated her into his previous and regular diet. He was to avoid heavy lifting for a total of 3 months after surgery. He was to avoid driving for 1 month. He was to follow up and see Dr. Silveira in 4 weeks in the office as directed. 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 He was to call sooner for any difficulties. - Time Spent with Patient Total time spent providing and/or coordinating discharge services: Physical Examination Vital Signs, Last 4 Hours Temp Pulse Resp BP Pulse Ox 10/17/16 08:45 16 94 10/17/16 07:21 98 F 63 16 123/62 93 Open Heart Registry Aspirin Cont/Prescribed at DC: Yes Beta Marty Cont/Prescribed at DC: Yes Statin Cont/Prescribed at DC: Yes CHRISTINA/ARB Cont/Prescribed at DC: Yes - VTE Documentation of Mechanical Device: Graduated compression elastic hosiery
--- NOTE | 2016-10-17 13:01 | Internal Med Progress Note ---
Date of Encounter: 10/17/16 Time of Encounter: 09:00 - Assessment and plan (1) Lung nodule Status: Acute Assessment and plan: Incidental CTA finding, bilateral in right middle lobe and left upper lobe, both 4mm nodules High risk due to history of smoking Plan: -f/u with pulmonology as an outpatient. (2) PRAVEEN (acute kidney injury) Status: Acute Assessment and plan: Patient stable. Creatinine generally stable, will encourage oral hydration. (3) Unstable angina Status: Acute Assessment and plan: Patient currently without chest pain, S/P CABG Plan: -Continue medical treatment with ASA, BB, Statin (4) CAD (coronary artery disease) Status: Acute Assessment and plan: Known history of CAD, currently triple-vessel disease. S/P CABG. Patient stable. Plan: -Continue ASA, BB, statin - DC home today. Qualifiers: Coronary Disease-Associated Artery/Lesion type: [place] artery [place] vs. transplanted heart: [place] heart Associated angina: without angina Qualified Code(s): I25.10 - Atherosclerotic heart disease of [place] coronary artery without angina pectoris (5) DVT prophylaxis Status: Acute Assessment and plan: Pt is on xarelto. (6) PAF (paroxysmal atrial fibrillation) Status: Acute Assessment and plan: PAF developped after CABG. On BB for rate control and xarelto for anticoagulation. Cardiology consult saw Patient, recommend patient has been followed. - Time Spent With Patient 25 - 35 minutes - Subjective Interval history: Patient is a 81-year-old male admitted for unstable angina. Patient had LHC and was found triple-vessel stenosis. Patient had CABG by CT surgery. After surgery, patient recover well but did develop A. fib. I saw and examined the patient today. He is awake alert, oriented 3. Denies chest pain or shortness of breath. Vitals are stable. gravel weigher shows Sinus rhythm with heart rate at 60-70. Cardiothoracic surgeon Dr. Chicas saw patient and has discharged pt Home. - Constitutional Vitals: Temp Pulse Resp BP Pulse Ox 98 F 63 16 123/62 99 10/17/16 07:21 10/17/16 10:24 10/17/16 11:26 10/17/16 07:21 10/17/16 11:26 General appearance: Present: cooperative, A&O X 3, pleasant, no acute distress, answers questions appropriately - Head Head exam: Present: atraumatic, normocephalic - Eye Eye exam: Present: PERRL, conjuntiva pink, sclera anicteric Pupils: Present: PERRL - Neck Neck exam general surgery: Present: supple, trachea midline. Absent: lymphadenopathy - Respiratory Respiratory exam: Present: CTAB. Absent: accessory muscle use, rales, rhonchi, wheezes - Cardiovascular Cardiovascular exam: Present: RRR, +S1, +S2. Absent: diastolic murmur, gallop, rubs, systolic murmur - GI/Abdominal GI/Abdominal exam: Present: normal bowel sounds, soft, no peritoneal signs. Absent: distended, tenderness - Extremities Exam Extremities exam: Present: warm, radial pulses palpable and symetrical. Absent : calf tenderness, cyanotic, pedal edema - Neurological Exam Neurological exam: Present: CN II-XII intact, oriented X3, no focal deficits. Absent: pronater drift, facial droop, speech deficit - Skin Skin exam: Present: dry, intact Internal Medicine: Result - Labs CBC & Chem 7: 10/17/16 03:15 10/17/16 03:15 Labs: Short CBC 10/17/16 Range/Units 03:15 WBC 5.7 (4.3-11.1) K/mcL Hgb 10.6 L (12.9-16.9) g/dL Hct 34.2 L (37.5-50.1) % Plt Count 256 (140-400) K/mcL Neutrophils # 3.9 (1.6-8.9) K/mcL BMP 10/17/16 03:15 Sodium 131 L Potassium 3.8 Chloride 94 L Carbon Dioxide 30 H BUN 37 H Creatinine 1.36 H Glucose 101 H Calcium 9.1 - ABG Interpretation ABG results: ABG ABG pH 7.41 pH Units (7.32-7.45) 10/12/16 00:25 ABG pCO2 36 mmHg (35-45) 10/12/16 00:25 ABG pO2 80 mmHg (85-104) L 10/12/16 00:25 ABG O2 Saturation 96 % (95-98) 10/12/16 00:25 PT/INR, D-dimer PT 14.5 Seconds (9.4-12.1) H 10/12/16 04:30 - VTE Documentation of Mechanical Device: Graduated compression elastic hosiery Consult Discharge Plan - Plan Instructions: Metoprolol (By mouth), Atorvastatin (By mouth), Amiodarone ( Injection), Rivaroxaban (By mouth), Coronary Artery Bypass Graft (DC), Sternal Precautions (GEN) Referrals: Jose Jennings, OPERATIONS SUPPORT MANAGER [Advanced Practice Nurse] - 11/09/16 2:00 pm [facility]PCP [Primary Care Provider[facility] - Prescriptions: OxyCODONE/APAP 5/325 [Percocet 5/325 MG] 1 each PO Q6HR PRN #30 tablet PRN Reason: Severe Pain Amiodarone [Cordarone] 400 mg PO DAILY #30 tablet Atorvastatin [Lipitor] 40 mg PO HS #30 tablet Metoprolol [Lopressor] 50 mg PO BID #60 tablet Rivaroxaban [Xarelto] 20 mg PO DAILY #30 tablet
== END 2016-10-17 12:06 | disposition home or self-care (01) | DRG 234 ==
LOC: EMEROO 05:24 → SUATTDRO 10:56 → 3BNU 10:56 → ICNU 10-11 10:19 → 2NNU 10-15 17:01
PROVIDERS: ADMIT Internal Medicine; ATTEND Internal Medicine

== ENCOUNTER 2016-10-19 10:04 | Observation (INO) ==
--- NOTE | 2016-10-19 10:37 | Emergency Department Note ---
Disposition Clinical Impression: Chest pain Qualifiers: Chest pain type: unspecified Qualified Code(s): R07.9 - Chest pain, unspecified Disposition: Admitted As Inpatient Chest Pain HPI - General Chief Complaint: ED Chest Pain Stated Complaint: CP Time Seen by Provider: 10/19/16 10:09 Source: patient, family Limitations: age Vital Signs Reviewed: Yes Nursing Notes Reviewed: Yes - History of Present Illness HPI Narrative: Patient presents with complaint of chest pain that started earlier today. Scratches pressure liniment overstressed. Patient stated been doing well after his procedure related complaints chest pain patient parents shortness of breath associated with this also. Patient has fevers and chills denies vision changes. Patient denies numbness and tingling associated. Patient denies any aggravating alleviating factors as he tried OxyContin which did not help her symptoms and is not moving around very much. Severity scale (1-10): 8 - Related Data Home Medications Medication Instructions Recorded Confirmed Acetaminophen [Tylenol] 650 mg PO TID PRN 10/06/16 10/19/16 Aspirin [Lo-Dose Aspirin EC] 81 mg PO DAILY 10/06/16 10/19/16 OxyCODONE/APAP 5/325 [Percocet 1 tab PO Q6HR PRN 10/19/16 10/19/16 5/325 MG] Previous Rx's Medication Instructions Recorded Amiodarone [Cordarone] 400 mg PO DAILY #30 tablet 10/17/16 Atorvastatin [Lipitor] 40 mg PO HS #30 tablet 10/17/16 Metoprolol [Lopressor] 50 mg PO BID #60 tablet 10/17/16 Rivaroxaban [Xarelto] 20 mg PO DAILY #30 tablet 10/17/16 Allergies Allergy/AdvReac Type Severity Reaction Status Date / Time Penicillins Allergy Anaphylaxis Verified 10/06/16 05:26 All systems ED: reviewed and negative except as stated. Chest Pain PMH - Past Medical History Medical history: Reports: hyperlipidemia, hypertension Psychiatric history: Reports: no psych history - Social History Smoking Status: Former smoker Alcohol use: Reports: rarely Drug use: Reports: none Physical Exam - General Limitations: age General appearance: alert, in no apparent distress - Head Head exam: atraumatic, normocephalic, normal inspection - Eye Eye exam: Present: normal appearance, PERRL, EOMI - ENT ENT exam: normal exam, normal oropharynx, mucous membranes moist - Neck Neck exam: Present: normal inspection, full ROM, trachea midline - Chest Chest inspection: Present: normal inspection, symmetric chest wall rise - Respiratory Respiratory exam: Present: normal lung sounds bilaterally - Cardiovascular Cardiovascular exam: Present: regular rate, normal rhythm, normal heart sounds - Abdominal Exam Abdominal exam: Present: soft, Non-Tender. Absent: tenderness, distention, guarding, rebound, rigidity - Extremities Exam Extremities exam: Present: normal inspection, full ROM. Absent: tenderness, pedal edema - Back Exam Back exam: Present: normal inspection, full ROM. Absent: tenderness - Neurological Exam Neurological exam: Present: alert, oriented X3 - Psychiatric Psychiatric exam: Present: normal affect, normal mood - Skin Skin exam: Present: warm, dry, intact, normal color Course Vital Signs Temperature 97.9 F 10/19/16 10:08 Pulse Rate 61 10/19/16 10:08 Respiratory Rate 18 10/19/16 10:08 Blood Pressure 104/59 10/19/16 10:08 O2 Sat by Pulse Oximetry 98 10/19/16 10:08 Temperature 97.9 F 10/19/16 10:08 Pulse Rate 70 10/19/16 13:00 Respiratory Rate 16 10/19/16 13:00 Blood Pressure 143/73 10/19/16 13:00 O2 Sat by Pulse Oximetry 98 10/19/16 13:00 Oxygen Delivery Oxygen Delivery Room Air Chest Pain - Lab Data Lab results reviewed: Yes I reviewed the patient's lab results. Result diagrams: 10/19/16 11:20 10/19/16 11:20 Lab Results 10/19/16 10/19/16 10/19/16 Range/Units 11:20 11:20 11:20 WBC 10.2 D (4.3-11.1) K/mcL RBC 4.36 (4.19-5.50) M/mcL Hgb 10.5 L (12.9-16.9) g/dL Hct 33.5 L (37.5-50.1) % MCV 76.8 L (83.0-100.0) fL MCH 24.1 L (28.0-33.3) pg MCHC 31.3 L (31.6-35.5) g/dL RDW 17.2 H (11.5-14.5) % Plt Count 390 D (140-400) K/mcL MPV 9.5 (9.4-12.4) fL Immature Gran % 1.1 (0-4) % Seg Neutrophils % 83.6 % Lymphocytes % 7.3 % Monocytes % 7.0 % Eosinophils % 0.7 % Basophils % 0.3 % Neutrophils # 8.5 (1.6-8.9) K/mcL Lymphocytes # 0.7 (0.6-4.6) K/mcL Monocytes # 0.7 (0.0-1.3) K/mcL Eosinophils # 0.1 (0.0-0.6) K/mcL Basophils # 0.0 (0.0-0.2) K/mcL Immature Plt Fraction 5.5 (1.1-6.1) % PT 30.8 H (9.4-12.1) Seconds INR 2.8 APTT 40.0 H (26.0-36.0) Seconds Sodium 129 L (136-145) mEq/L Potassium 4.5 (3.5-4.5) mEq/L Chloride 94 L (98-109) mEq/L Carbon Dioxide 27 (19-29) mEq/L BUN 27 H D (8-26) mg/dL Creatinine 1.62 H (0.72-1.25) mg/dL Est GFR ( Amer) 50 L (> 60) Est GFR (Non-Af Amer) 41 L (> 60) BUN/Creatinine Ratio 17 (6-26) Glucose 111 H (70-99) mg/dL Calculated Osmolality 274 L (280-300) Calcium 8.7 (8.6-10.8) mg/dL Total Bilirubin 1.0 (0.2-1.2) mg/dL AST 30 (5-34) Units/L ALT 32 (0-55) Units/L Alkaline Phosphatase 58 (38-126) Units/L Troponin I (0-0.03) ng/mL B-Natriuretic Peptide (0-100) pg/mL Serum Total Protein 6.8 (6.0-8.3) g/dL Albumin 3.3 L (3.5-5.0) g/dL Globulin 3.5 (2.4-3.5) g/dL Albumin/Globulin Ratio 0.9 L (1.1-2.2) 10/19/16 10/19/16 Range/Units 11:20 11:20 WBC (4.3-11.1) K/mcL RBC (4.19-5.50) M/mcL Hgb (12.9-16.9) g/dL Hct (37.5-50.1) % MCV (83.0-100.0) fL MCH (28.0-33.3) pg MCHC (31.6-35.5) g/dL RDW (11.5-14.5) % Plt Count (140-400) K/mcL MPV (9.4-12.4) fL Immature Gran % (0-4) % Seg Neutrophils % % Lymphocytes % % Monocytes % % Eosinophils % % Basophils % % Neutrophils # (1.6-8.9) K/mcL Lymphocytes # (0.6-4.6) K/mcL Monocytes # (0.0-1.3) K/mcL Eosinophils # (0.0-0.6) K/mcL Basophils # (0.0-0.2) K/mcL Immature Plt Fraction (1.1-6.1) % PT (9.4-12.1) Seconds INR APTT (26.0-36.0) Seconds Sodium (136-145) mEq/L Potassium (3.5-4.5) mEq/L Chloride (98-109) mEq/L Carbon Dioxide (19-29) mEq/L BUN (8-26) mg/dL Creatinine (0.72-1.25) mg/dL Est GFR ( Amer) (> 60) Est GFR (Non-Af Amer) (> 60) BUN/Creatinine Ratio (6-26) Glucose (70-99) mg/dL Calculated Osmolality (280-300) Calcium (8.6-10.8) mg/dL Total Bilirubin (0.2-1.2) mg/dL AST (5-34) Units/L ALT (0-55) Units/L Alkaline Phosphatase (38-126) Units/L Troponin I 0.05 H* (0-0.03) ng/mL B-Natriuretic Peptide 130 H (0-100) pg/mL Serum Total Protein (6.0-8.3) g/dL Albumin (3.5-5.0) g/dL Globulin (2.4-3.5) g/dL Albumin/Globulin Ratio (1.1-2.2) - Radiology Data Radiology results reviewed: Yes I reviewed the patient's radiology results. Chest X-Ray 10/19/16 10:30 IMPRESSION: Small left pleural effusion has progressed Mild cardiomegaly D/ / Hammad Ibrahim MD / Hammad Ibrahim MD Interpreting Provider: Hammad Ibrahim MD - EKG Data EKG attestation: Yes I reviewed and interpreted this EKG. EKG shows normal: sinus rhythm Rate: normal Rhythm: NSR Critical Care Time Total Critical Care Time: 30 Attestation: Critical care performed: Time is exclusive of separately billable procedures. Time includes: direct patient care, patient reassessment, coordination of patient care, interpretation of data (laboratory data, radiology data, and respiratory data), review of patient's medical records, medical consultation and documentation of patient care. Procedures included in critical care time: Procedures excluded from critical care time:
[2016-10-19 11:26] LABS: Basophils % 0.3 %; Eosinophils # 0.1 K/mcL (0.0-0.6); Eosinophils % 0.7 %; Hematocrit 33.5 % (37.5-50.1); Hemoglobin 10.5 g/dL (12.9-16.9); Immature Granulocytes % 1.1 % (0-4); Immature Platelets 5.5 % (1.1-6.1); Lymphocytes # 0.7 K/mcL (0.6-4.6); Lymphocytes % 7.3 %; Mean Corpuscular HGB Conc 31.3 g/dL (31.6-35.5); Mean Corpuscular Hemoglobin 24.1 pg (28.0-33.3); Mean Corpuscular Volume 76.8 fL (83.0-100.0); Mean Platelet Volume 9.5 fL (9.4-12.4); Monocytes # 0.7 K/mcL (0.0-1.3); Neutrophils # 8.5 K/mcL (1.6-8.9); Platelet Count 390 K/mcL (140-400); Red Blood Count 4.36 M/mcL (4.19-5.50); Red Cell Distribution Width 17.2 % (11.5-14.5); Segmented Neutrophils % 83.6 %
[2016-10-19 11:36] LABS: INR 2.8; Prothrombin Time 30.8 Seconds (9.4-12.1)
[2016-10-19 11:39] LABS: Albumin 3.3 g/dL (3.5-5.0); Albumin/Globulin Ratio 0.9 (1.1-2.2); Calcium 8.7 mg/dL (8.6-10.8); Globulin 3.5 g/dL (2.4-3.5); Potassium 4.5 mEq/L (3.5-4.5); Total Protein 6.8 g/dL (6.0-8.3)
[2016-10-19] MEDS ORDERED: Aspirin 81 MG TAB.CHEW PO STA (12:18)
[2016-10-19] MEDS: Nitroglycerin 0.4 MG TAB.SUBL SL PRN ×2 (13:18→13:29)
--- NOTE | 2016-10-19 13:25 | Internal Med History&Physical ---
Date of Encounter: 10/19/16 Time of Encounter: 13:22 Assessment and Plan (1) Chest pain Current visit: No Status: Acute Chest pain in patient with recent history of CABG, had pneumothorax for which he had a chest tube placed, mild elevation of troponin upon admission likely secondary to recent CABG. Will monitor cardiac biomarkers. Telemetry monitoring. No evidence of pneumothorax on chest x-ray, mild left-sided pleural effusion, slightly worsening from prior x-ray. She was recently discharged from the facility. Since recent history of CABG, we will obtain an echocardiogram to evaluate possibility of pericardial effusion. Patient is not hypotensive, no signs of pericardial tamponade at this point. We will continue monitoring the patient closely. DVT prophylaxis, patient is on xarelto, we will continue with the same. Qualifiers: Chest pain type: unspecified Qualified Code(s): R07.9 - Chest pain, unspecified (2) Elevated troponin Current visit: No Status: Acute See above. (3) CAD (coronary artery disease) Current visit: No Status: Acute Qualifiers: Coronary Disease-Associated Artery/Lesion type: [place] artery [place] vs. transplanted heart: [place] heart Associated angina: without angina Qualified Code(s): I25.10 - Atherosclerotic heart disease of [place] coronary artery without angina pectoris (4) PAF (paroxysmal atrial fibrillation) Current visit: No Status: Acute Continue with home medications. (5) DVT prophylaxis Current visit: No Status: Acute Internal Medicine - H&P: HPI Chief complaint: chest pain Admitted From: Emergency Dept Plans for Post Hospital Care: Home History of present illness: Mr. Pagan is a 81 year old male with past medical history of CABG earlier this month, which was complicated by a pneumothorax and patient underwent chest tube placement, hypertension, atrial fibrillation on anticoagulation on xarelto , CVA. He presented wo the emergency department complaining of substernal chest pain associated with back pain which started yesterday and has not gotten any better with the use of opiates. In the emergency department he was found to have mild elevation of troponin and was admitted for further management and workup. The main component. He denies chest pain, shortness of breath, fever, chills, dysuria, urinary retention. He is hard of hearing, he has a hearing aid , his is present in this encounter. He did not receive nitrates prior to my encounter with him, he takes aspirin at home. Past Med Surg Social Fam HX - Past Medical History Medical history: hyperlipidemia, hypertension Psychiatric history: no psych history - Social History Smoking Status: Former smoker Smokeless Tobacco Status: No Alcohol use: rarely Drug use: none - Family History Father Living Status: Hx Family Cardiac Disorders: Yes ( late 70's [place]) Mother Living Status: Internal Medicine - H&P: Meds Acetaminophen [Tylenol] 650 mg PO TID PRN 10/06/16 [History] Aspirin [Lo-Dose Aspirin EC] 81 mg PO DAILY 10/06/16 [History] Amiodarone [Cordarone] 400 mg PO DAILY #30 tablet 10/17/16 [Rx] Atorvastatin [Lipitor] 40 mg PO HS #30 tablet 10/17/16 [Rx] Metoprolol [Lopressor] 50 mg PO BID #60 tablet 10/17/16 [Rx] Rivaroxaban [Xarelto] 20 mg PO DAILY #30 tablet 10/17/16 [Rx] OxyCODONE/APAP 5/325 [Percocet 5/325 MG] 1 tab PO Q6HR PRN 10/19/16 [History] Allergies Penicillins Allergy (Verified 10/06/16 05:26) Anaphylaxis All Systems PM: A 10-system review of systems was performed and is negative for pertinent findings except as documented above in the HPI. - Constitutional Constitutional: no chills, no fever(s), no night sweats - EENT Eyes: no change in vision, no discharge, no pain, no photophobia Ears: no ear discharge, no ear pain, no tinnitus Nose, mouth and throat: no dysphagia, no nasal discharge, no neck pain, no sore throat - Cardiovascular Cardiovascular ROS IM: no chest pain, no diaphoresis, no dyspnea, no lightheadedness, no palpitations, no syncope - Respiratory Respiratory: no cough, no dyspnea, no wheezing, no excessive phlegm production - Gastrointestinal Gastrointestinal: no abdominal pain, no diarrhea, no hematemesis, no hematochezia, no melena, no nausea, no vomiting - Musculoskeletal Musculoskeletal ROS IM: no numbness, no tingling - Integumentary Integumentary IM: no rash, no unusual bruising - Neurological Neurological ROS: no confusion, no convulsions, no focal weakness, no numbness, no tingling, no tremor(s) - Hematologic/Lymphatic Hematologic/Lymphatic: no easy bruising - Constitutional Vitals: Temp Pulse Resp BP Pulse Ox 97.9 F 70 16 143/73 98 10/19/16 10:08 10/19/16 13:00 10/19/16 13:00 10/19/16 13:00 10/19/16 13:00 General appearance: Present: cooperative, A&O X 3, pleasant, no acute distress Exam: hard of hearing. - Head Head exam: Present: atraumatic, normocephalic - Eye Eye exam: Present: PERRL, conjuntiva pink, sclera anicteric Pupils: Present: PERRL - Neck Neck exam general surgery: Present: supple, trachea midline. Absent: lymphadenopathy - Respiratory Respiratory exam: Present: CTAB. Absent: accessory muscle use, rales, rhonchi, wheezes - Cardiovascular Cardiovascular exam: Present: RRR, +S1, +S2. Absent: diastolic murmur, gallop, rubs, systolic murmur - GI/Abdominal GI/Abdominal exam: Present: normal bowel sounds, soft, no peritoneal signs. Absent: distended, tenderness - Extremities Exam Extremities exam: Present: warm, radial pulses palpable and symetrical. Absent : calf tenderness, cyanotic, pedal edema - Neurological Exam Neurological exam: Present: CN II-XII intact, oriented X3, no focal deficits. Absent: pronater drift, facial droop, speech deficit - Skin Skin exam: Present: dry, intact Internal Med - H&P Results - Labs CBC & Chem 7: 10/19/16 11:20 10/19/16 11:20
[2016-10-19] MEDS ORDERED: Ondansetron 4 MG/2 ML VIAL IVP PRN (13:32)
[2016-10-19] MEDS ORDERED: Naloxone 0.4 MG/ML INJ IVP PRN (13:32)
[2016-10-19] MEDS ORDERED: *HR* Morphine 2 MG/ML SYRINGE IVP PRN (13:32)
[2016-10-19] MEDS ORDERED: Acetaminophen 325 MG TABLET PO PRN (13:32)
[2016-10-19] MEDS ORDERED: Ondansetron 4 MG/2 ML VIAL IV ONE (13:33)
[2016-10-19] MEDS ORDERED: *HR* Morphine 2 MG/ML SYRINGE IV ONE (13:33)
[2016-10-19] MEDS: *HR* OxyCODONE Immed Rel 5 MG TABLET PO PRN (21:04)
--- NOTE | 2016-10-19 22:54 | Electrocardiograph Report ---
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
[2016-10-20 04:56] LABS: Basophils % 0.2 %; Eosinophils % 0.2 %; Hematocrit 33.5 % (37.5-50.1); Hemoglobin 10.4 g/dL (12.9-16.9); Immature Granulocytes % 0.8 % (0-4); Lymphocytes # 0.8 K/mcL (0.6-4.6); Lymphocytes % 8.5 %; Mean Corpuscular Volume 77.4 fL (83.0-100.0); Mean Platelet Volume 10.1 fL (9.4-12.4); Monocytes # 0.8 K/mcL (0.0-1.3); Monocytes % 8.6 %; Neutrophils # 7.5 K/mcL (1.6-8.9); Platelet Count 403 K/mcL (140-400); Red Blood Count 4.33 M/mcL (4.19-5.50); Red Cell Distribution Width 17.4 % (11.5-14.5); Segmented Neutrophils % 81.7 %
[2016-10-20 05:17] LABS: Calcium 8.9 mg/dL (8.6-10.8); Potassium 4.5 mEq/L (3.5-4.5)
[2016-10-20] MEDS: *HR* OxyCODONE Immed Rel 5 MG TABLET PO PRN (06:08)
[2016-10-20] MEDS ORDERED: Aspirin 81 MG TAB.CHEW PO SCH (09:00)
[2016-10-20] MEDS ORDERED: *HR* Rivaroxaban 15 MG TABLET PO SCH (09:00)
[2016-10-20] MEDS ORDERED: *HR* Amiodarone 200 MG TABLET PO SCH (09:00)
[2016-10-20] MEDS ORDERED: *HR* Rivaroxaban 10 MG TABLET PO SCH (09:00)
--- NOTE | 2016-10-20 14:21 | ECHO - Doppler Report ---
Echocardiogram Name: Bebeto Pagan Date of Study: 10/20/2016 Date: 1935 Ht: 71.0 in Medical Record#: [id number] Age: 81 Wt: 227.0 lb Gender: Male BSA: 2.23 Order #: [id number] Location: [facility] Room #: 3B13 Reading Physician: Denis Lowe DO, TOVA, JOSE DAVID ANTHONY Supervisor Enrobing: Muriel Sewell Ordering Physician: Jarret Corrales MD Primary Physician: [facility] Indications: ACS, Recent CABG Impressions: LVEF 60%. Normal LV chamber size and function. Mild concentric left ventricular hypertrophy. Mild left ventricular diastolic dysfunction. Atypical septal motion consistent with post-operative status. Normal right ventricular structure and function. Mild to moderately dilated left atrium. Mild aortic regurgitation. No evidence of pulmonary hypertension. Dilated Sinuses of Valsalva measuring 4.2 cm. There is a small pericardial effusion present. No tamponade. Left Ventricular Wall Motion: Rest Echo Findings All wall segments showed normal motion. Findings: Study Quality * Technically adequate exam. ECG Findings * Sinus rhythm with BBB. Left Ventricle * LVEF 60%. * Normal LV chamber size and function. * Mild concentric left ventricular hypertrophy. * Mild left ventricular diastolic dysfunction. * Atypical septal motion consistent with post-operative status. Right Ventricle * Normal right ventricular structure and function. Left Atrium * Mild to moderately dilated left atrium. Right Atrium * Normal right atrial size. Aortic Valve * Trileaflet aortic valve with normal function. * No aortic stenosis. * Mild aortic regurgitation. Mitral Valve * Normal mitral valve structure and function. * No mitral stenosis. * Trace mitral regurgitation. Tricuspid Valve * Normal tricuspid valve structure and function. * Trace tricuspid regurgitation. * No evidence of pulmonary hypertension. Pulmonic Valve * Normal pulmonic valve structure and function. * No pulmonic regurgitation. Aorta * Dilated Sinuses of Valsalva measuring 4.2 cm. Pericardium * There is a small pericardial effusion present. No tamponade. IVC * Normal IVC dimensions and inspiratory collapse. Pulmonary Artery * Normal visualized portions of the main pulmonary artery. Interatrial Septum * No evidence of PFO by color Doppler. History Hypertension Hypercholesteremia Years 10 Packs 1 Family History of CAD History of CAD/PTCA Myocardial Infarction Coronary Artery Bypass Graft Measurements: BP: 100/ 48 2D Normal Values RVIDd: 3.80 cm <2.7 cm IVSd: 1.70 cm 0.6 - 1.0 cm LVIDd: 3.20 cm 3.7 - 5.6 cm LVPWd: 1.40 cm 0.6 - 1.1 cm LVIDs: 2.60 cm 1.5 - 3.6 cm LA: 4.20 cm 2.0 - 4.0cm %FS: 29.76 cm >25 % LA volume: 67 Mitral Valve Peak E:.63 m/sec Peak A:.67 m/sec E/A Ratio:0.9 Peak E' Lat Lamont:6.24 cm/s Peak E' Med Lamont:7.21 cm/s E/E' Lat Ratio:10.1 E/E' Med Ratio:8.8 Tricuspid Valve TV Regurg Peak Grad: 22.00mmHg TV Regurg Peak Lamont: 2.33m/sec Updated by Denis Lowe DO, TOVA, JOSE DAVID ANTHONY on 10/20/2016 2:16:18 PM electronically signed on 10/20/2016 2:16:46 PM with status of Final Wall Motion Robertson: 1=Normal, 2=Hypokinesis, 3=Akinesis, 4=Dyskinesis, 5=Aneurysmal, 6=Hyperkinetic, X=Not Visualized (Blank)=Missing
--- NOTE | 2016-10-20 14:59 | Discharge Summary ---
Date of Encounter: 10/20/16 Time of Encounter: 14:57 - Discharge Diagnosis (1) Chest pain Priority: Primary Status: Acute Qualifiers: Chest pain type: unspecified Qualified Code(s): R07.9 - Chest pain, unspecified (2) Elevated troponin Priority: Secondary Status: Acute (3) CAD (coronary artery disease) Priority: Secondary Status: Acute Qualifiers: Coronary Disease-Associated Artery/Lesion type: picayune artery [place] vs. transplanted heart: picayune heart Associated angina: without angina Qualified Code(s): I25.10 - Atherosclerotic heart disease of picayune coronary artery without angina pectoris (4) PAF (paroxysmal atrial fibrillation) Priority: Secondary Status: Acute (5) DVT prophylaxis Priority: Secondary Status: Acute - Discharge Medications Home Medications: Acetaminophen [Tylenol] 650 mg PO TID PRN 10/06/16 [History] Aspirin [Lo-Dose Aspirin EC] 81 mg PO DAILY 10/06/16 [History] Amiodarone [Cordarone] 400 mg PO DAILY #30 tablet 10/17/16 [Rx] Atorvastatin [Lipitor] 40 mg PO HS #30 tablet 10/17/16 [Rx] Metoprolol [Lopressor] 50 mg PO BID #60 tablet 10/17/16 [Rx] Rivaroxaban [Xarelto] 20 mg PO DAILY #30 tablet 10/17/16 [Rx] OxyCODONE/APAP 5/325 [Percocet 5/325 MG] 1 tab PO Q6HR PRN 10/19/16 [History] Allergies/Adverse Reactions: Allergies Penicillins Allergy (Verified 10/06/16 05:26) Anaphylaxis Procedures/tests Complete & Pending: Procedures Performed prior 72 hours Category Date Time Status ECG 12 lead ECG [ECG] Routine Y 10/19/16 13:32 Ordered EV echocardiogram Routine Y 10/20/16 13:32 Completed Date of admission: 10/19/16 12:30 [facility]: [facility] Consults: 10/20/16 12:21 Consult to Truck Driver Helper [CONS] Routine Reason for Consult: readmission Discharging clinician: Jarret Corrales Anticipated date of discharge: 10/20/16 - Patient Status Disposition: Home, Self-Care Condition: Fair Functional capacity at discharge: independent ambulation Overall status at discharge: patient is back to baseline - Discharge Instructions Follow Up With: [facility],PC[facility] [Primary Care Provider] - - Diet and Activity Activity: increase activity as tolerated Diet: advance to your usual diet Interval History: Mr. Pagan is a 81 year old male with past medical history of CABG earlier this month, which was complicated by a pneumothorax and patient underwent chest tube placement, hypertension, atrial fibrillation on anticoagulation on xarelto , CVA. He presented wo the emergency department complaining of substernal chest pain associated with back pain which started yesterday and has not gotten any better with the use of opiates. In the emergency department he was found to have mild elevation of troponin and was admitted for further management and workup. The main component. He denies chest pain, shortness of breath, fever, chills, dysuria, urinary retention. He is hard of hearing, he has a hearing aid , his is present in this encounter. He did not receive nitrates prior to my encounter with him, he takes aspirin at home. Hospital course: Mr. Pagan is a 81 year old male admitted due to chest pain which resolved, Echo did not reveal acute abnormalities, patient is stable, has his home meds and is complaint with therapy. Will d/c him today. D/W patient and his . - Time Spent with Patient Total time spent providing and/or coordinating discharge services: - Constitutional Vitals: Temp Pulse Resp BP Pulse Ox 98.1 F 66 16 106/53 99 10/20/16 11:27 10/20/16 11:27 10/20/16 11:27 10/20/16 11:27 10/20/16 11:27 General appearance: Present: cooperative, A&O X 3, pleasant, no acute distress - Head Head exam: Present: atraumatic, normocephalic - Eye Eye exam: Present: PERRL, conjuntiva pink, sclera anicteric Pupils: Present: PERRL - Neck Neck exam general surgery: Present: supple, trachea midline. Absent: lymphadenopathy - Respiratory Respiratory exam: Present: CTAB. Absent: accessory muscle use, rales, rhonchi, wheezes - Cardiovascular Cardiovascular exam: Present: RRR, +S1, +S2. Absent: diastolic murmur, gallop, rubs, systolic murmur - GI/Abdominal GI/Abdominal exam: Present: normal bowel sounds, soft, no peritoneal signs. Absent: distended, tenderness - Extremities Exam Extremities exam: Present: warm, radial pulses palpable and symetrical. Absent : calf tenderness, cyanotic, pedal edema - Neurological Exam Neurological exam: Present: CN II-XII intact, oriented X3, no focal deficits. Absent: pronater drift, facial droop, speech deficit - Skin Skin exam: Present: dry, intact
[2016-10-20 15:12] VITALS: BP 129/70
== END 2016-10-20 16:39 | disposition home or self-care (01) ==
LOC: 3BNU 10:04 → EMEROO 10:04 → SUATTDRO 12:30 → 3BNU 13:55
PROVIDERS: ADMIT Internal Medicine; ATTEND Internal Medicine

== ENCOUNTER 2017-11-22 17:20 | Inpatient (IN) ==
[2017-11-22 18:53] LABS: Basophils % 0.4 %
[2017-11-22 18:55] LABS: Eosinophils # 0.1 K/mcL (0.0-0.6); Eosinophils % 1.5 %; Hematocrit 22.8 % (37.5-50.1); Immature Granulocytes % 0.4 % (0-4); Lymphocytes # 0.8 K/mcL (0.6-4.6); Lymphocytes % 16.8 %; Mean Corpuscular HGB Conc 27.6 g/dL (31.6-35.5); Mean Corpuscular Hemoglobin 19.9 pg (28.0-33.3); Mean Corpuscular Volume 72.2 fL (83.0-100.0); Mean Platelet Volume 11.8 fL (9.4-12.4); Monocytes # 0.3 K/mcL (0.0-1.3); Monocytes % 7.3 %; Neutrophils # 3.4 K/mcL (1.6-8.9); Platelet Count 202 K/mcL (140-400); Red Blood Count 3.16 M/mcL (4.19-5.50); Red Cell Distribution Width 16.7 % (11.5-14.5); Segmented Neutrophils % 73.6 %
[2017-11-22 19:02] LABS: INR 1.2; Prothrombin Time 13.3 Seconds (9.4-12.1)
[2017-11-22 19:05] LABS: Activated Partial Thrombo Time 26.7 Seconds (26.0-36.0)
[2017-11-22 19:08] LABS: Hemoglobin 6.3 g/dL (12.9-16.9)
[2017-11-22 19:09] LABS: Hypochromasia Present (Not Present)
[2017-11-22 19:12] LABS: BUN/Creatinine Ratio 18 (6-26); Blood Urea Nitrogen 23 mg/dL (8-23); Calcium 8.8 mg/dL (8.6-10.3); Carbon Dioxide 23 mEq/L (23-29); Chloride 106 mEq/L (98-107); Glucose 124 mg/dL (70-105); Osmolality,Calculated 287 (280-300); Potassium 3.9 mEq/L (3.5-5.1); Sodium 136 mEq/L (136-145); Troponin I < 0.03 ng/mL (< 0.04); eGFR For African Americans > 60 (> 60); eGFR For Non-African Americans 55 (> 60)
--- NOTE | 2017-11-22 19:15 | Emergency Department Note ---
Disposition Clinical Impression: GI bleed Qualifiers: GI bleed type/associated pathology: unspecified gastrointestinal hemorrhage type Qualified Code(s): K92.2 - Gastrointestinal hemorrhage, unspecified Disposition: Admitted As Inpatient Condition: Good [facility]errals: [facility] [Primary Care Provider] - General Adult HPI - General Chief complaint: ED Recheck/Abnormal Lab/Rx Stated complaint: low hgb Time Seen by Provider: 11/22/17 18:05 Source: patient Limitations: no limitations Nursing Notes Reviewed: Yes Vital Signs Reviewed: Yes - History of Present Illness HPI Narrative: Patient presents today for evaluation of low hemoglobin. He states that he has had dark bowel movements off and on for the last several weeks. The patient has been on Zaroxolyn for the last 2 months. He had bypass surgery in October 2016. He had postop atrial fibrillation and was anticoagulated for 3 months. Atrial fibrillation resolved. Cardiology took him off his role toe. He states he was started back on Zaroxolyn by the [facility] for unknown reason. NO History of DVT or PE. Pain Scale: 2 - Related Data Home Medications Medication Instructions Recorded Confirmed Acetaminophen [Tylenol] 650 mg PO TID PRN 10/06/16 10/19/16 Aspirin [Lo-Dose Aspirin EC] 81 mg PO DAILY 10/06/16 10/19/16 OxyCODONE/APAP 5/325 [Percocet 1 tab PO Q6HR PRN 10/19/16 10/19/16 5/325 MG] Previous Rx's Medication Instructions Recorded Amiodarone [Cordarone] 400 mg PO DAILY #30 tablet 10/17/16 Atorvastatin [Lipitor] 40 mg PO HS #30 tablet 10/17/16 Metoprolol [Lopressor] 50 mg PO BID #60 tablet 10/17/16 Rivaroxaban [Xarelto] 20 mg PO DAILY #30 tablet 10/17/16 Allergies Allergy/AdvReac Type Severity Reaction Status Date / Time Penicillins Allergy Anaphylaxis Verified 11/22/17 17:34 Review of Systems: CONSTITUTIONAL: Generalized weakness HEENT: Eyes: No visual changes. Ears, Nose, Throat: No hearing loss, difficulty talking or unable to swallow. SKIN: No rash or itching. CARDIOVASCULAR: No chest pain, chest pressure or chest discomfort. No palpitations or edema. RESPIRATORY: No shortness of breath, cough or sputum. GASTROINTESTINAL: Dark stool with associated abdominal bloating and cramping No anorexia, nausea, vomiting or diarrhea. GENITOURINARY: No burning on urination or hematuria. NEUROLOGICAL: No headache, dizziness, syncope, paralysis, ataxia, numbness or tingling in the extremities. No change in bowel or bladder control. MUSCULOSKELETAL: No muscle pain, back pain, joint pain or stiffness. Past Medical History - Past Medical History Medical history: Reports: hyperlipidemia, hypertension, myocardial infarction Psychiatric history: Reports: no psych history - Social History Smoking Status: Former smoker Smokeless Tobacco Status: No Alcohol use: Reports: rarely Drug use: Reports: none Physical Exam General: Well appearing, nontoxic, no acute distress Head: Normocephalic Atraumatic Eyes: PERRL, EOMI ENT: Airway patent, no stridor Neck: supple, no meningismus Chest: Lungs clear to auscultation bilateral Cardiac: Regular rate and rhythm, no murmurs, rubs or gallops Abdomen: soft, nontender, nondistended; no guarding, rebound, or tenderness to percussion Rectal exam with dark stool that is Hemoccult positive Musculoskeletal: Calves symmetric, nontender, no palpable cord Skin: No rash, normal skin tone Neuro: Alert and Oriented to person, place, and time; No focal deficit, CN 2-12 symmetric and intact - General Limitations: no limitations General appearance: alert, in no apparent distress Course - Reevaluation(s) Reevaluation #1: Patient has weakness as well as abdominal cramping. Patient has no abdominal tenderness. Weakness and fatigue in the setting of cardiac bypass surgery approximately 1 year ago. Patient will receive 2 units of packed red blood cells. Patient will undergo admission to hospital service. Patient has never had a colonoscopy. - Consultations Consultation #1: Hospitalist accepts Vital Signs Temperature 98.5 F 11/22/17 17:30 Pulse Rate 69 11/22/17 17:30 Respiratory Rate 18 11/22/17 17:30 Blood Pressure 160/67 11/22/17 17:30 O2 Sat by Pulse Oximetry 99 11/22/17 17:30 Temperature 98.5 F 11/22/17 17:30 Pulse Rate 69 11/22/17 17:30 Respiratory Rate 18 11/22/17 17:30 Blood Pressure 160/67 11/22/17 17:30 O2 Sat by Pulse Oximetry 99 11/22/17 17:30 Oxygen Delivery Oxygen Delivery Room Air Medical Decision Making - Medical Records Medical records reviewed: Yes I reviewed the patient's medical records. - Lab Data Lab results reviewed: Yes I reviewed the patient's lab results. Lab Results 11/22/17 Range/Units 18:29 PT 13.3 H (9.4-12.1) Seconds INR 1.2 APTT 26.7 (26.0-36.0) Seconds - Radiology Data Radiology results reviewed: Yes I reviewed the patient's radiology results. - EKG Data EKG #1 EKG attestation: Yes I reviewed and interpreted this EKG. EKG results narrative: EKG shows sinus rhythm with ventricular rate of 77. MA interval 167. QRS 98. QTC 406. No ST elevations or depressions. No acute changes.
--- NOTE | 2017-11-22 19:57 | Internal Med History&Physical ---
Date of Encounter: 11/22/17 Time of Encounter: 20:00 Internal Medicine - H&P: HPI Chief complaint: Low outpatient hemoglobin Admitted From: Emergency Dept Plans for Post Hospital Care: Home History of present illness: Mr. Pagan is a 82 year old male PMHx of hypertension, s/p CABG 10/2016. He had postop atrial fibrillation and was anticoagulated with Xeralto for 3 months , at which time he was instructed to discontinue the anticoagulant as A. fib had resolved. 3 months ago, his physician restarted him on Xeralto for risk of stroke and patient started to experience symptoms of fatigue, headaches, black tarry stools, positional SOB. abdominal bloating. He went to physician today for follow-up and Hb was found to be 6.3 and he was recommended to come to the ED for further work-up and management. In addition, he states that he [facility]. He denies history of DVT or PE. Patient denies CP, vision changes, active bleeding, rash, f/c/n/v, symptoms. Past Med Surg Social Fam HX - Past Medical History Medical history: hyperlipidemia, hypertension, myocardial infarction Psychiatric history: no psych history - Social History Smoking Status: Former smoker Smokeless Tobacco Status: No Alcohol use: rarely Drug use: none - Family History Father Living Status: Hx Family Cardiac Disorders: Yes ( late 70's Mi, atherosclerosis) Mother Living Status: Hx Family Cardiac Disorders: No Hx Family Cancer: Yes Internal Medicine - H&P: Meds Acetaminophen [Tylenol] 650 mg PO TID PRN 10/06/16 [History] Aspirin [Lo-Dose Aspirin EC] 81 mg PO DAILY 10/06/16 [History] Atorvastatin [Lipitor] 40 mg PO HS #30 tablet 10/17/16 [Rx] Metoprolol [Lopressor] 50 mg PO BID #60 tablet 10/17/16 [Rx] Nitroglycerin [Nitrostat] 0.4 mg SL Q5MIN PRN 11/22/17 [History] Sennosides [Senna] 17.2 mg PO DAILY 11/22/17 [History] Turmeric Root Extract [Turmeric] 500 mg PO DAILY 11/22/17 [History] 3 Allergy/AdvReac Type Severity Reaction Status Date / Time Penicillins Allergy Anaphylaxis Verified 11/22/17 20:18 All Systems PM: A 10-system review of systems was performed and is negative for pertinent findings except as documented above in the HPI. - Constitutional Constitutional: as per HPI, no chills, no fever(s), no night sweats - EENT Eyes: no change in vision, no discharge, no pain, no photophobia Ears: no ear discharge, no ear pain, no tinnitus Nose, mouth and throat: no dysphagia, no nasal discharge, no neck pain, no sore throat - Cardiovascular Cardiovascular ROS IM: no chest pain, no diaphoresis, no dyspnea, no lightheadedness, no palpitations, no syncope - Respiratory Respiratory: no cough, no dyspnea, no wheezing, no excessive phlegm production - Gastrointestinal Gastrointestinal: change in bowel habits, change in stool character, no abdominal pain, no coffee ground emesis, no diarrhea, no hematemesis, no hematochezia, no melena, no nausea, no vomiting Additional comments: black tarry stools. - Genitourinary Genitourinary ROS male: no difficulty urinating, no flank pain, no hematuria - Musculoskeletal Musculoskeletal ROS IM: no numbness, no tingling - Integumentary Integumentary IM: no rash, no unusual bruising - Neurological Neurological ROS: no confusion, no convulsions, no focal weakness, no numbness, no tingling, no tremor(s) - Hematologic/Lymphatic Hematologic/Lymphatic: no easy bruising - Constitutional Vitals: Temp Pulse Resp BP Pulse Ox 98.5 F 73 18 145/68 96 11/22/17 17:30 11/22/17 19:52 11/22/17 19:52 11/22/17 19:52 11/22/17 19:52 General appearance: Present: A&O X 3, pleasant, no acute distress, answers questions appropriately - Head Head exam: Present: atraumatic, normocephalic - Eye Eye exam: Present: EOMI, conjuntiva pink, sclera anicteric - Neck Neck exam general surgery: Present: supple, trachea midline. Absent: lymphadenopathy - Respiratory Respiratory exam: Present: CTAB. Absent: accessory muscle use, rales, rhonchi, wheezes - Cardiovascular Cardiovascular exam: Present: RRR, +S1, +S2. Absent: diastolic murmur, gallop, rubs, systolic murmur - GI/Abdominal GI/Abdominal exam: Present: distended, normal bowel sounds, soft, no peritoneal signs. Absent: guarding, tenderness - Extremities Exam Extremities exam: Present: warm, radial pulses palpable and symmetrical. Absent : calf tenderness, cyanotic, pedal edema - Neurological Exam Neurological exam: Present: alert, oriented X3, no focal deficits. Absent: pronater drift, facial droop, speech deficit - Skin Skin exam: Present: dry, intact Internal Med - H&P Results - Labs CBC & Chem 7: 11/22/17 18:29 11/22/17 18:29 Labs: Short CBC 11/22/17 Range/Units 18:29 WBC 4.6 (4.3-11.1) K/mcL Hgb 6.3 L (12.9-16.9) g/dL Hct 22.8 L (37.5-50.1) % Plt Count 202 (140-400) K/mcL Neutrophils # 3.4 (1.6-8.9) K/mcL BMP 11/22/17 18:29 Sodium 136 Potassium 3.9 Chloride 106 Carbon Dioxide 23 BUN 23 Creatinine 1.26 Glucose 124 H Calcium 8.8 Cardiac Enzymes 11/22/17 Range/Units 18:29 Troponin I < 0.03 (< 0.04) ng/mL - Impressions ITS Impressions Chest X-Ray 11/22/17 18:06 IMPRESSION: No acute process. Stable cardiomegaly D/ / Ramo Campuzano MD / Ramo Campuzano MD Interpreting Provider: Ramo Campuzano MD - Assessment and plan (1) GI bleed Current Visit: Yes Status: Acute Assessment and plan: Patient is s/p CABG, presents with weakness and fatigue for the last 3 months after restarting Xarelto, Hb = 6.3 on outpatient office today and was sent to ED. Blood type and screen, transfuse 2 units RBCs and recheck H/H afterwards. GI consult for endoscopy/colonoscopy, recommendations appreciated. Started patient on IVF and IV protonix. Continue to monitor closely with VS and AM labs. NPO after midnight Qualifiers: GI bleed type/associated pathology: unspecified gastrointestinal hemorrhage type Qualified Code(s): K92.2 - Gastrointestinal hemorrhage, unspecified (2) Hypertension Current Visit: No Status: Chronic Assessment and plan: Hold medications for possible endoscopy tomorrow. Qualifiers: Hypertension type: essential hypertension Qualified Code(s): I10 - Essential (primary) hypertension (3) DVT prophylaxis Current Visit: No Status: Acute Assessment and plan: SCD - Time Spent With Patient Total time spent is greater than 50% in coordination of care (as documented) at patient's floor/unit and/or counseling patient: Greater than 35 minutes
[2017-11-22] MEDS ORDERED: Naloxone 0.4 MG/ML INJ IVP PRN (20:29)
[2017-11-22] MEDS ORDERED: Ringers Solution, Lactated 500 ML IVC ONE (20:36)
[2017-11-22] MEDS ORDERED: 0.9 % Sodium Chloride 500 ML ONE (20:42)
[2017-11-22] MEDS ORDERED: 0.9 % Sodium Chloride 1,000 ML IVC SCH (20:45)
--- NOTE | 2017-11-22 21:10 | Emergency Department Note ---
Disposition Clinical Impression: GI bleed Qualifiers: GI bleed type/associated pathology: unspecified gastrointestinal hemorrhage type Qualified Code(s): K92.2 - Gastrointestinal hemorrhage, unspecified Disposition: Admitted As Inpatient Condition: Good [facility]errals: [facility] [Primary Care Provider] - General Adult HPI - General Chief complaint: ED Recheck/Abnormal Lab/Rx Stated complaint: low hgb Time Seen by Provider: 11/22/17 18:05 Source: patient Mode of arrival: ambulatory Limitations: no limitations Nursing Notes Reviewed: Yes Vital Signs Reviewed: Yes - History of Present Illness Pain Scale: 2 - Related Data Home Medications Medication Instructions Recorded Confirmed Acetaminophen [Tylenol] 650 mg PO TID PRN 10/06/16 11/22/17 Aspirin [Lo-Dose Aspirin EC] 81 mg PO DAILY 10/06/16 11/22/17 Nitroglycerin [Nitrostat] 0.4 mg SL Q5MIN PRN 11/22/17 11/22/17 Sennosides [Senna] 17.2 mg PO DAILY 11/22/17 11/22/17 Turmeric Root Extract [Turmeric] 500 mg PO DAILY 11/22/17 11/22/17 Previous Rx's Medication Instructions Recorded Atorvastatin [Lipitor] 40 mg PO HS #30 tablet 10/17/16 Metoprolol [Lopressor] 50 mg PO BID #60 tablet 10/17/16 Allergies Allergy/AdvReac Type Severity Reaction Status Date / Time Penicillins Allergy Anaphylaxis Verified 11/22/17 20:18 Past Medical History - Past Medical History Medical history: Reports: hyperlipidemia, hypertension, myocardial infarction Psychiatric history: Reports: no psych history - Social History Smoking Status: Former smoker Smokeless Tobacco Status: No Alcohol use: Reports: rarely Drug use: Reports: none Physical Exam - General Limitations: no limitations General appearance: alert, in no apparent distress Course Vital Signs Temperature 98.5 F 11/22/17 17:30 Pulse Rate 69 11/22/17 17:30 Respiratory Rate 18 11/22/17 17:30 Blood Pressure 160/67 11/22/17 17:30 O2 Sat by Pulse Oximetry 99 11/22/17 17:30 Temperature 99.8 F H 11/22/17 20:48 Pulse Rate 73 11/22/17 20:48 Respiratory Rate 16 11/22/17 20:48 Blood Pressure 145/59 11/22/17 20:48 O2 Sat by Pulse Oximetry 99 11/22/17 20:48 Oxygen Delivery Oxygen Delivery Room Air Medical Decision Making - Lab Data Result diagrams: 11/22/17 18:29 11/22/17 18:29 Lab Results 11/22/17 11/22/17 11/22/17 Range/Units 18:29 18:29 18:29 WBC 4.6 (4.3-11.1) K/mcL RBC 3.16 L (4.19-5.50) M/mcL Hgb 6.3 L (12.9-16.9) g/dL Hct 22.8 L (37.5-50.1) % MCV 72.2 L (83.0-100.0) fL MCH 19.9 L (28.0-33.3) pg MCHC 27.6 L (31.6-35.5) g/dL RDW 16.7 H (11.5-14.5) % Plt Count 202 (140-400) K/mcL MPV 11.8 (9.4-12.4) fL Immature Gran % 0.4 (0-4) % Seg Neutrophils % 73.6 % Lymphocytes % 16.8 % Monocytes % 7.3 % Eosinophils % 1.5 % Basophils % 0.4 % Neutrophils # 3.4 (1.6-8.9) K/mcL Lymphocytes # 0.8 (0.6-4.6) K/mcL Monocytes # 0.3 (0.0-1.3) K/mcL Eosinophils # 0.1 (0.0-0.6) K/mcL Basophils # 0.0 (0.0-0.2) K/mcL Hypochromasia Present A (Not Present) PT 13.3 H (9.4-12.1) Seconds INR 1.2 APTT 26.7 (26.0-36.0) Seconds Sodium 136 (136-145) mEq/L Potassium 3.9 (3.5-5.1) mEq/L Chloride 106 (98-107) mEq/L Carbon Dioxide 23 (23-29) mEq/L BUN 23 (8-23) mg/dL Creatinine 1.26 (0.70-1.30) mg/dL Est GFR ( Amer) > 60 (> 60) Est GFR (Non-Af Amer) 55 L (> 60) BUN/Creatinine Ratio 18 (6-26) Glucose 124 H (70-105) mg/dL Calculated Osmolality 287 (280-300) Calcium 8.8 (8.6-10.3) mg/dL Troponin I < 0.03 (< 0.04) ng/mL Blood Type Antibody Screen Crossmatch 11/22/17 Range/Units 18:37 WBC (4.3-11.1) K/mcL RBC (4.19-5.50) M/mcL Hgb (12.9-16.9) g/dL Hct (37.5-50.1) % MCV (83.0-100.0) fL MCH (28.0-33.3) pg MCHC (31.6-35.5) g/dL RDW (11.5-14.5) % Plt Count (140-400) K/mcL MPV (9.4-12.4) fL Immature Gran % (0-4) % Seg Neutrophils % % Lymphocytes % % Monocytes % % Eosinophils % % Basophils % % Neutrophils # (1.6-8.9) K/mcL Lymphocytes # (0.6-4.6) K/mcL Monocytes # (0.0-1.3) K/mcL Eosinophils # (0.0-0.6) K/mcL Basophils # (0.0-0.2) K/mcL Hypochromasia (Not Present) PT (9.4-12.1) Seconds INR APTT (26.0-36.0) Seconds Sodium (136-145) mEq/L Potassium (3.5-5.1) mEq/L Chloride (98-107) mEq/L Carbon Dioxide (23-29) mEq/L BUN (8-23) mg/dL Creatinine (0.70-1.30) mg/dL Est GFR ( Amer) (> 60) Est GFR (Non-Af Amer) (> 60) BUN/Creatinine Ratio (6-26) Glucose (70-105) mg/dL Calculated Osmolality (280-300) Calcium (8.6-10.3) mg/dL Troponin I (< 0.04) ng/mL Blood Type O POSITIVE Antibody Screen NEGATIVE Crossmatch See Detail Attestation Statement - Attestation Attestation: I, Baltazar Budi, examined this patient and my medical decision-making was reviewed with the WEIGHT ENGINEER/PA/Advanced Practice Nurse/Resident Physician. I agree with the documented findings, disposition and treatment plan as described except to the extent set forth below. 82 yo male presents with concerns of Hgb of 6. pt having dark stools, takes Xarelto. +guiaic positive dark brown stool. +LH, denies CP, SOB, n/v/d.
--- NOTE | 2017-11-22 22:08 | Event Note ---
Date of Encounter: 11/22/17 Time of Encounter: 22:01 Patient was seen and examined. I agree with the H&P as written by the Resident physician. Briefly, Patient present with black tarry stools. hgb 6.3 in the ED. Been dealing with this for a month or so. Reports fatigue. Had CABG in 10/2016 and was on Xarelto for 3 month for post CABG afib. He was put on Xarelto again a couple of months ago at the [place] for unclear reasons. Patient is on ASA as well. Patient is hemodynamically stable A/O x3 CTAB RRR, S1, S2, no m/r/g Soft, NT, ND, +BS No edema, 2+ DP Will transfuse 2 units and admit to hospitalist c/s GI Protonix IV BID Serial H/H Gentle hydration NPO after midnight Hold Xarelto. Hold ASA SCDs
[2017-11-22] MEDS ORDERED: 0.9 % Sodium Chloride 250 ML ONE (23:32)
[2017-11-23] MEDS: 0.9 % Sodium Chloride 1,000 ML IVC SCH ×2 (04:42→16:57)
[2017-11-23 05:46] LABS: Basophils % 0.7 %; Eosinophils # 0.1 K/mcL (0.0-0.6); Eosinophils % 2.1 %; Hematocrit 25.6 % (37.5-50.1); Hemoglobin 7.6 g/dL (12.9-16.9); Immature Granulocytes % 0.2 % (0-4); Lymphocytes # 0.8 K/mcL (0.6-4.6); Lymphocytes % 19.7 %; Mean Corpuscular HGB Conc 29.7 g/dL (31.6-35.5); Mean Platelet Volume 11.4 fL (9.4-12.4); Monocytes # 0.4 K/mcL (0.0-1.3); Monocytes % 9.6 %; Neutrophils # 2.9 K/mcL (1.6-8.9); Nucleated Red Blood Cells 0.5 /100 WBC (0); Platelet Count 169 K/mcL (140-400); Red Blood Count 3.46 M/mcL (4.19-5.50); Red Cell Distribution Width 17.9 % (11.5-14.5); Segmented Neutrophils % 67.7 %
[2017-11-23 06:05] LABS: BUN/Creatinine Ratio 19 (6-26); Blood Urea Nitrogen 21 mg/dL (8-23); Calcium 8.9 mg/dL (8.6-10.3); Carbon Dioxide 22 mEq/L (23-29); Chloride 106 mEq/L (98-107); Glucose 98 mg/dL (70-105); Magnesium 2.2 mg/dL (1.6-2.6); Osmolality,Calculated 285 (280-300); Sodium 136 mEq/L (136-145); eGFR For African Americans > 60 (> 60); eGFR For Non-African Americans > 60 (> 60)
[2017-11-23] MEDS: Pantoprazole 40 MG VIAL IVP SCH ×2 (06:08→16:52)
[2017-11-23 11:16] LABS: Hematocrit 25.5 % (37.5-50.1); Hemoglobin 7.6 g/dL (12.9-16.9)
[2017-11-23] MEDS ORDERED: Lidocaine -MPF 2% 2 ML VIAL ONE (13:17)
[2017-11-23] MEDS ORDERED: *HR* Propofol 200 MG/20 ML VIAL IVP ONE (13:17)
--- NOTE | 2017-11-23 13:39 | Anesthesia Evaluation PreOp ---
Date of Encounter: 11/23/17 Time of Encounter: 13:37 - Past History Planned Operation: EGD Cardiac History: [place] (2017), HTN, Hyperlipidemia, Arrhythmia (Hx post-CABG AFib - resolved within 3months. Previously Anticoagulated on Xarelto at that time. Stopped. 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 Any Significant HX Other Medical History: Denies Any Significant HX Anesthesia History: No Prior Anesthetic Complications, Past Anesthesia (CABG 2016) Alcohol Use: rarely Drug use: none Medications and Allergies Acetaminophen [Tylenol] 650 mg PO TID PRN 10/06/16 [History] Aspirin [Lo-Dose Aspirin EC] 81 mg PO DAILY 10/06/16 [History] Atorvastatin [Lipitor] 40 mg PO HS #30 tablet 10/17/16 [Rx] Metoprolol [Lopressor] 50 mg PO BID #60 tablet 10/17/16 [Rx] Nitroglycerin [Nitrostat] 0.4 mg SL Q5MIN PRN 11/22/17 [History] Sennosides [Senna] 17.2 mg PO DAILY 11/22/17 [History] Turmeric Root Extract [Turmeric] 500 mg PO DAILY 11/22/17 [History] 3 Allergy/AdvReac Type Severity Reaction Status Date / Time Penicillins Allergy Anaphylaxis Verified 11/22/17 20:18 - Meds/Allergy Pre-op Review Medications Reviewed: Yes Allergies Reviewed: Yes Beta Blockers on Current Med List: Yes (Metoprolol) If Beta Blockers taken, Date/Time (Last Dose taken): Not given 11/23/2017 re: NPO status. Last dose 11/22/2017 @2125? Anesthesia Results - Labs 11/23/17 10:59 11/23/17 05:34 Laboratory Tests 11/22/17 11/23/17 18:29 05:34 PT 13.3 H INR 1.2 Est GFR (Non-Af Amer) > 60 Laboratory Results Impressions Chest X-Ray 11/22/17 18:06 IMPRESSION: No acute process. Stable cardiomegaly D/ / Ramo Campuzano MD / Ramo Campuzano MD Interpreting Provider: Ramo Campuzano MD - Imaging EKG: image reviewed (59bpm - SINUS BRADYCARDIA MODERATE INTRAVENTRICULAR CONDUCTION DELAY Electronically Signed On 10-19-2016 22:52:24 EDT by Tae Evans MD) Additional studies: ECHO 2017 Impressions: LVEF 60%. Normal LV chamber size and function. Mild concentric left ventricular hypertrophy. Mild left ventricular diastolic dysfunction. Atypical septal motion consistent with post-operative status. Normal right ventricular structure and function. Mild to moderately dilated left atrium. Mild aortic regurgitation. No evidence of pulmonary hypertension. Dilated Sinuses of Valsalva measuring 4.2 cm. There is a small pericardial effusion present. No tamponade. Left Ventricular Wall Motion: Rest Echo Findings All wall segments showed normal motion. Anesthesia Exam Vital Signs Temp Pulse Resp BP Pulse Ox 11/23/17 10:35 98.3 F 69 18 125/68 96 11/23/17 07:30 97 11/23/17 06:36 98.6 F 69 18 172/75 97 11/23/17 03:19 99.2 F 69 18 164/65 99 11/23/17 02:27 97.8 F 72 14 156/72 100 11/23/17 02:26 97.8 F 72 14 137/100 100 11/22/17 23:48 98.1 F 72 15 155/56 11/22/17 23:43 98.8 F 69 14 152/63 100 11/22/17 23:23 98.5 F 69 14 140/61 100 11/22/17 21:12 97 11/22/17 21:10 99.3 F 16 141/76 11/22/17 21:03 99.1 F 71 14 141/56 97 11/22/17 21:02 99.3 F 70 17 141/76 98 11/22/17 20:48 99.8 F H 73 16 145/59 99 11/22/17 19:52 73 18 145/68 96 11/22/17 17:30 98.5 F 69 18 160/67 99 Intake and Output 11/22/17 11/23/17 11/23/17 23:59 07:59 15:59 Intake Total 350 / 350 350 / 350 Output Total 400 / 400 375 / 375 Balance -50 / -50 -25 / -25 Intake: Blood Product 350 / 350 350 / 350 Rbcs Leuko Poor As-1 Unit 350 / 350 [id number] Rbcs Leuko Poor As-1 Unit 0 / 0 350 / 350 [id number] Output: Urine 400 / 400 375 / 375 Other: # Voids 1 1 Weight 105.233 kg Blood Glucose* 82 Height: 5'10" Weight: 232# BMI = 33 NPO (# of Hours): MNOc - HEENT Pupil (Motor): Pupils equal, EOMI Mallampati: II Teeth: Edentulous Oral Opening: Greater than 3 - MASTER TECHNICIAN LOC: Oriented MASTER TECHNICIAN Motor: Normal RUE, Normal LUE, Normal RLE, Normal LLE, Normal Face MASTER TECHNICIAN Sensory: Normal: RUE, LUE, RLE, LLE, Face - Cardiac Rhythm: Regular Murmur: None - Pulmonary Breath Sounds: bilateral Clear Respiratory Effort: Symmetrical Anesthesia Assess/Plan ASA Score: 3 (CAD, HTN, Chol, Anemia) Modified [place] Scale for Level of Consciousness: Cooperative, oriented, and tranquil Anesthetic Plan: MAC Monitoring Plan: Standard Monitors Recovery Plan: PACU Anes Supervising Prov Stmt: Pt seen/evaluated, R&B discussed, questions answered and consent obtained. David Tiwari MD
[2017-11-23] MEDS ORDERED: Simethicone 40 MG/0.6 ML MLS IR ONE (14:27)
[2017-11-23] MEDS ORDERED: Tetracaine/Benzocaine/Butamben 200MG/SPRAY (100SPY/BOT) MM ONE (14:27)
--- NOTE | 2017-11-23 14:37 | Gastroenterology Consult Note ---
<Sierra Ferrari - Last Filed: 11/23/17 14:27> Date of Encounter: 11/23/17 Time of Encounter: 11:00 - Assessment and plan (1) Melena Current Visit: Yes Status: Acute Assessment and plan: Pt presents with a 2 month history of black tarry stools after restarting on xarelto. He needs EGD to rule out AVM, PUD, esophagitis and gastritis. Monitor H &H, transfuse as needed. (2) Anemia Current Visit: Yes Status: Acute Qualifiers: Anemia type: iron deficiency Iron deficiency anemia type: chronic blood loss Qualified Code(s): D50.0 - Iron deficiency anemia secondary to blood loss (chronic) - Time Spent With Patient Total time spent is greater than 50% in coordination of care (as documented) at patient's floor/unit and/or counseling patient: GI History of Present Illness - Data of Consult Patient: new to practice Consult date: 11/23/17 Requesting Physician: Andres Guerra - Consult Narrative Reason for consult: anemia History of present illness: Mr. Pagan is a 82 year old male PMHx of hypertension, s/p CABG 10/2016. He had postop atrial fibrillation and was anticoagulated with Xarelto for 3 months , at which time he was instructed to discontinue the anticoagulant as A. fib had resolved. 3 months ago, his physician restarted him on Xarelto for risk of stroke and patient started to experience symptoms of fatigue, headaches, black tarry stools, positional SOB. abdominal bloating. He went to physician today for follow-up and Hb was found to be 6.3 and he was recommended to come to the ED for further work-up and management. In addition, he states that [facility]. He denies history of DVT or PE. Patient denies CP, vision changes, active bleeding, rash. He denies abdominal pain, nausea, vomiting, diarrhea or constipation. He reports tarry stools for approximately 2 months with increasing fatigue, dyspnea on exertion. procedures: denies anticoagulants: xarelto last dose on Tuesday Past Med Surg Social Fam HX - Past Medical History Medical history: hyperlipidemia, hypertension, myocardial infarction Psychiatric history: no psych history - Social History Smoking Status: Former smoker Smokeless Tobacco Status: No Alcohol use: rarely Drug use: none - Family History Father Living Status: Hx Family Cardiac Disorders: Yes ( late 70's Mi, atherosclerosis) Mother Living Status: Age at : 54 Hx Family Cardiac Disorders: No Hx Family Cancer: Yes (stomach) Review of Systems: GI: as per [place] GENERAL: denies fever, has some chills EYES: denies yellow discoloration ENT: denies pain with swallowing or difficulty swallowing CARDIO: denies chest pain, palpitations RESP: Shortness of breath with exertion : denies change in color of urine NEURO: increased weakness HEME: Denies any bruising MS: denies joint pain, joint swelling or back pain. DERM: denies rash or itching PSYCH: Denies history of anxiety or depression - Constitutional Vitals: Temp Pulse Resp BP Pulse Ox 98.2 F 68 18 163/75 100 11/23/17 13:53 11/23/17 13:53 11/23/17 13:53 11/23/17 13:53 11/23/17 13:53 Exam: CONSTITUTIONAL:~alert, no acute distress.~HEAD:~normocephalic.~EYES:~no jaundice.~NECK:~no obvious swelling.~HEART:~irregular rate and rhythm, no murmurs, midline chest scar well healed.~LUNGS:~bilateral good air entry.~ ABDOMEN:~non distended, soft, non tender, no masses palpable, no organomegaly.~ RECTAL EXAM:~Deferred.~EXTREMITIES:~no clubbing, cyanosis, 2+ BLE edema~SKIN:~ no stigmata of chronic liver disease, pallor noted.~NEUROLOGIC:~no obvious focal defect.~~~~ Results - Labs CBC & Chem 7: 11/23/17 10:59 11/23/17 05:34 Labs: Last Result Calcium 8.9 mg/dL (8.6-10.3) 11/23/17 05:34 Troponin I < 0.03 ng/mL (< 0.04) 11/22/17 18:29 Entire Visit Hgb 7.6 g/dL (12.9-16.9) L 11/23/17 10:59 Hct 25.5 % (37.5-50.1) L 11/23/17 10:59 PT 13.3 Seconds (9.4-12.1) H 11/22/17 18:29 - ABG ABG results: PT/INR, D-dimer PT 13.3 Seconds (9.4-12.1) H 11/22/17 18:29 Consult Discharge Plan - Plan [facility]errals: [facility] [Primary Care Provider] - <Treva Jones - Last Filed: 11/23/17 14:46> Date of Encounter: 11/23/17 Time of Encounter: 14:00 - Time Spent With Patient Total time spent is greater than 50% in coordination of care (as documented) at patient's floor/unit and/or counseling patient: GI History of Present Illness - Data of Consult Requesting Physician: Andres Guerra - Consult Narrative History of present illness: Mr. Pagan is a 82 year old male - Constitutional Vitals: Temp Pulse Resp BP Pulse Ox 98.2 F 68 18 163/75 100 11/23/17 13:53 11/23/17 13:53 11/23/17 13:53 11/23/17 13:53 11/23/17 13:53 Results - Labs CBC & Chem 7: 11/23/17 10:59 11/23/17 05:34 Labs: Last Result Calcium 8.9 mg/dL (8.6-10.3) 11/23/17 05:34 Troponin I < 0.03 ng/mL (< 0.04) 11/22/17 18:29 Entire Visit Hgb 7.6 g/dL (12.9-16.9) L 11/23/17 10:59 Hct 25.5 % (37.5-50.1) L 11/23/17 10:59 PT 13.3 Seconds (9.4-12.1) H 11/22/17 18:29 - ABG ABG results: PT/INR, D-dimer PT 13.3 Seconds (9.4-12.1) H 11/22/17 18:29 - Attending Attestation I have personally performed a face to face evaluation on this patient. I have reviewed and agree with the care plan. History and Exam by me shows: Patient with anemia and black stool for the last 2 months currently is been taking Xeralto and aspirin. Denies any abdominal focal pain but does has some upper abdominal discomfort. Rec: EGD today and if negative then colon tomorrow
[2017-11-23] MEDS ORDERED: SODIUM CHLORIDE/NAHCO3/KCL/PEG 4,000 ML SOLN.RECON PO ONE (14:46)
--- NOTE | 2017-11-23 16:36 | Internal Med Progress Note ---
Date of Encounter: 11/23/17 Time of Encounter: 11:45 - Assessment and plan (1) Acute blood loss anemia Current Visit: Yes Status: Acute Assessment and plan: Due to GI Bleed Held anti coag not a good candidate for anti coag s/p 2 U PRBC.. Improved Hb GI work up - P (2) GI bleed Current Visit: Yes Status: Acute Assessment and plan: s/p 2 U PRBC - Hb improved to 7.6 cont close monitoring GI consulted scheduled for EGD today..May go for Colonoscopy tomorrow cont IV PPI Cont IV hdyration NPO for now cont close monitoring of H/H Qualifiers: GI bleed type/associated pathology: unspecified gastrointestinal hemorrhage type Qualified Code(s): K92.2 - Gastrointestinal hemorrhage, unspecified (3) Hypertension Current Visit: No Status: Chronic Assessment and plan: Fairly controlled will resume home meds Hydralazine IV PRN Qualifiers: Hypertension type: essential hypertension Qualified Code(s): I10 - Essential (primary) hypertension (4) PAF (paroxysmal atrial fibrillation) Current Visit: No Status: Acute Assessment and plan: rate controlled with Metoprolol not a good candidate for anti coag (5) HLD (hyperlipidemia) Current Visit: Yes Status: Acute Assessment and plan: on statin Qualifiers: Hyperlipidemia type: unspecified Qualified Code(s): E78.5 - Hyperlipidemia , unspecified (6) DVT prophylaxis Current Visit: No Status: Acute Assessment and plan: SCD - Time Spent With Patient Total time spent is greater than 50% in coordination of care (as documented) at patient's floor/unit and/or counseling patient: - Subjective Interval history: Mr. Pagan is a 82 year old male PMHx of hypertension, s/p CABG 10/2016. He had postop atrial fibrillation and was anticoagulated with Xeralto for 3 months , at which time he was instructed to discontinue the anticoagulant as A. fib had resolved. 3 months ago, his physician restarted him on Xeralto for risk of stroke and patient started to experience symptoms of fatigue, headaches, black tarry stools, positional SOB. abdominal bloating. He went to physician today for follow-up and Hb was found to be 6.3 and he was recommended to come to the ED for further work-up and management. In addition, he states that he was started on Zaroxolyn by the [place] for unknown reasons. He denies history of DVT or PE. Pt was admitted here for acute anemia with melena. He denied any CP / SOB. No abd pain. Scheduled for EGD today - Constitutional Vitals: Temp Pulse Resp BP Pulse Ox 97.9 F 70 18 151/65 99 11/23/17 14:55 11/23/17 14:55 11/23/17 14:55 11/23/17 14:55 11/23/17 14:55 General appearance: Present: A&O X 3, pleasant, no acute distress, answers questions appropriately - Head Head exam: Present: atraumatic, normal inspection - Neck Neck exam general surgery: Present: supple - Respiratory Respiratory exam: Present: decreased breath sounds. Absent: rales, respiratory distress, rhonchi, wheezes - Cardiovascular Cardiovascular exam: Present: RRR, +S1, +S2. Absent: tachycardia - GI/Abdominal GI/Abdominal exam: Present: normal bowel sounds, soft. Absent: rebound, rigid, tenderness - Extremities Exam Extremities exam: Absent: calf tenderness, pedal edema, tenderness - Back Exam Back exam: Absent: CVA tenderness (L), CVA tenderness (R) - Neurological Exam Neurological exam: Present: alert, oriented X3 Internal Medicine: Result - Labs CBC & Chem 7: 11/23/17 10:59 11/23/17 05:34 Labs: Short CBC 11/23/17 11/23/17 Range/Units 05:34 10:59 WBC 4.3 (4.3-11.1) K/mcL Hgb 7.6 L 7.6 L (12.9-16.9) g/dL Hct 25.6 L 25.5 L (37.5-50.1) % Plt Count 169 (140-400) K/mcL Neutrophils # 2.9 (1.6-8.9) K/mcL BMP 11/23/17 05:34 Sodium 136 Potassium 4.0 Chloride 106 Carbon Dioxide 22 L BUN 21 Creatinine 1.09 Glucose 98 Calcium 8.9 - ABG Interpretation ABG results: PT/INR, D-dimer PT 13.3 Seconds (9.4-12.1) H 11/22/17 18:29 - VTE Documentation of Mechanical Device: Intermittent pneumatic compression device Consult Discharge Plan - Plan [facility]errals: [facility] [Primary Care Provider] -
[2017-11-23 20:00] LABS: Hematocrit 27.5 % (37.5-50.1); Hemoglobin 8.1 g/dL (12.9-16.9)
--- NOTE | 2017-11-23 20:32 | Electrocardiograph Report ---
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
[2017-11-24] MEDS: Pantoprazole 40 MG VIAL IVP SCH (05:20)
[2017-11-24] MEDS: 0.9 % Sodium Chloride 1,000 ML IVC SCH (05:21)
[2017-11-24 07:11] LABS: Basophils % 0.9 %; Eosinophils # 0.2 K/mcL (0.0-0.6); Eosinophils % 5.7 %; Hematocrit 25.2 % (37.5-50.1); Hemoglobin 7.5 g/dL (12.9-16.9); Immature Granulocytes % 0.3 % (0-4); Lymphocytes # 0.7 K/mcL (0.6-4.6); Lymphocytes % 21.1 %; Mean Corpuscular HGB Conc 29.8 g/dL (31.6-35.5); Mean Corpuscular Hemoglobin 22.1 pg (28.0-33.3); Mean Corpuscular Volume 74.3 fL (83.0-100.0); Mean Platelet Volume 11.1 fL (9.4-12.4); Monocytes # 0.4 K/mcL (0.0-1.3); Monocytes % 11.6 %; Neutrophils # 1.9 K/mcL (1.6-8.9); Nucleated Red Blood Cells 0.9 /100 WBC (0); Platelet Count 164 K/mcL (140-400); Red Blood Count 3.39 M/mcL (4.19-5.50); Red Cell Distribution Width 17.6 % (11.5-14.5); Segmented Neutrophils % 60.4 %
[2017-11-24 07:56] LABS: BUN/Creatinine Ratio 14 (6-26); Blood Urea Nitrogen 16 mg/dL (8-23); Calcium 8.7 mg/dL (8.6-10.3); Carbon Dioxide 22 mEq/L (23-29); Glucose 87 mg/dL (70-105); eGFR For African Americans > 60 (> 60); eGFR For Non-African Americans > 60 (> 60)
[2017-11-24 09:08] LABS: Chloride 108 mEq/L (98-107); Osmolality,Calculated 283 (280-300); Potassium 4.3 mEq/L (3.5-5.1); Sodium 136 mEq/L (136-145)
--- NOTE | 2017-11-24 12:06 | Anesthesia Evaluation PreOp ---
Date of Encounter: 11/24/17 Time of Encounter: 12:04 - Past History Planned Operation: Colonoscopy Cardiac History: [place] (2017), HTN, Hyperlipidemia, Arrhythmia, Cardiac Surgery () Pulmonary History: Former smoker GALLEY HAND History: Denies Any Significant HX Anesthesia History: No Prior Anesthetic Complications, Past Anesthesia Alcohol Use: rarely Drug use: none Medications and Allergies Acetaminophen [Tylenol] 650 mg PO TID PRN 10/06/16 [History] Aspirin [Lo-Dose Aspirin EC] 81 mg PO DAILY 10/06/16 [History] Atorvastatin [Lipitor] 40 mg PO HS #30 tablet 10/17/16 [Rx] Metoprolol [Lopressor] 50 mg PO BID #60 tablet 10/17/16 [Rx] Nitroglycerin [Nitrostat] 0.4 mg SL Q5MIN PRN 11/22/17 [History] Sennosides [Senna] 17.2 mg PO DAILY 11/22/17 [History] Turmeric Root Extract [Turmeric] 500 mg PO DAILY 11/22/17 [History] 3 Allergy/AdvReac Type Severity Reaction Status Date / Time Penicillins Allergy Anaphylaxis Verified 11/22/17 20:18 - Meds/Allergy Pre-op Review Medications Reviewed: Yes Allergies Reviewed: Yes Beta Blockers on Current Med List: Yes Anesthesia Results - Labs 11/24/17 06:48 11/24/17 06:48 ECHO 2016 Impressions: LVEF 60%. Normal LV chamber size and function. Mild concentric left ventricular hypertrophy. Mild left ventricular diastolic dysfunction. Atypical septal motion consistent with post-operative status. Normal right ventricular structure and function. Mild to moderately dilated left atrium. Mild aortic regurgitation. No evidence of pulmonary hypertension. Dilated Sinuses of Valsalva measuring 4.2 cm. There is a small pericardial effusion present. No tamponade. Date of Study: 10/07/2016 LEFT HEART CATH Indications: Non-Stemi, Unstable Angina Impressions: There is severe three vessel coronary artery disease. The left ventricle is normal and has normal contractility EF 65% Recommendations: Optimal medical therapy of patient's disease. Aggressive risk factor modification. Suggest patient have Elective coronary artery bypass surgery. - Imaging EKG: report reviewed (SR) Anesthesia Exam O2 Sat O2 Sat by Pulse Oximetry 97 O2 Sat by Pulse Oximetry 99 O2 Sat by Pulse Oximetry 99 O2 Sat by Pulse Oximetry 97 O2 Sat by Pulse Oximetry 98 O2 Sat by Pulse Oximetry 95 O2 Sat by Pulse Oximetry 99 O2 Sat by Pulse Oximetry 100 O2 Sat by Pulse Oximetry 98 Vital Signs Temp Pulse Resp BP Pulse Ox 98.5 F 69 18 160/67 99 11/22/17 17:30 11/22/17 17:30 11/22/17 17:30 11/22/17 17:30 11/22/17 17:30 - HEENT Pupil (Motor): Pupils equal, EOMI Mallampati: II Teeth: Edentulous Oral Opening: Greater than 3 - GALLEY HAND LOC: Oriented GALLEY HAND Motor: Normal RUE, Normal LUE, Normal RLE, Normal LLE, Normal Face GALLEY HAND Sensory: Normal: RUE, LUE, RLE, LLE, Face - Cardiac Rhythm: Regular Murmur: None JVD: No Carotid Bruit: No - Pulmonary Breath Sounds: bilateral Clear Respiratory Effort: Symmetrical Anesthesia Assess/Plan ASA Score: 3 Modified [place] Scale for Level of Consciousness: Cooperative, oriented, and tranquil Anesthetic Plan: MAC Autologous Blood: Yes Monitoring Plan: Standard Monitors Recovery Plan: Other
[2017-11-24] MEDS ORDERED: 0.9 % Sodium Chloride 500 ML IVC SCH (12:45)
--- NOTE | 2017-11-24 12:45 | Anesthesia Evaluation PreOp ---
Date of Encounter: 11/24/17 Time of Encounter: 12:43 - Past History Planned Operation: Colonoscopy Cardiac History: [place] (2017), HTN, Hyperlipidemia, Arrhythmia (Hx post-CABG AFib - resolved within 3months. 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 HX Other Medical History: Denies Any Significant HX Anesthesia History: No Prior Anesthetic Complications Alcohol Use: rarely Drug use: none Medications and Allergies Acetaminophen [Tylenol] 650 mg PO TID PRN 10/06/16 [History] Aspirin [Lo-Dose Aspirin EC] 81 mg PO DAILY 10/06/16 [History] Atorvastatin [Lipitor] 40 mg PO HS #30 tablet 10/17/16 [Rx] Metoprolol [Lopressor] 50 mg PO BID #60 tablet 10/17/16 [Rx] Nitroglycerin [Nitrostat] 0.4 mg SL Q5MIN PRN 11/22/17 [History] Sennosides [Senna] 17.2 mg PO DAILY 11/22/17 [History] Turmeric Root Extract [Turmeric] 500 mg PO DAILY 11/22/17 [History] 3 Allergy/AdvReac Type Severity Reaction Status Date / Time Penicillins Allergy Anaphylaxis Verified 11/22/17 20:18 - Meds/Allergy Pre-op Review Medications Reviewed: Yes Allergies Reviewed: Yes Beta Blockers on Current Med List: Yes If Beta Blockers taken, Date/Time (Last Dose taken): 11/23/2017 @ 1948 Anesthesia Results - Labs 11/24/17 06:48 11/24/17 06:48 ECHO 2016 Impressions: LVEF 60%. Normal LV chamber size and function. Mild concentric left ventricular hypertrophy. Mild left ventricular diastolic dysfunction. Atypical septal motion consistent with post-operative status. Normal right ventricular structure and function. Mild to moderately dilated left atrium. Mild aortic regurgitation. No evidence of pulmonary hypertension. Dilated Sinuses of Valsalva measuring 4.2 cm. There is a small pericardial effusion present. No tamponade. Left Ventricular Wall Motion: Rest Echo Findings All wall segments showed normal motion. 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
[2017-11-24] MEDS ORDERED: *HR* Propofol 200 MG/20 ML VIAL IVP ONE ×2 (12:46→13:14)
--- NOTE | 2017-11-24 13:02 | Internal Med Progress Note ---
Date of Encounter: 11/24/17 Time of Encounter: 13:00 - Assessment and plan (1) GI bleed Current Visit: Yes Status: Acute Assessment and plan: s/p 2 U PRBC - Hb improved to 7.6. s/p EGD showing normal esophagus and non bleeding gastric ulcer. Scheduled for colonoscopy today. Qualifiers: GI bleed type/associated pathology: unspecified gastrointestinal hemorrhage type Qualified Code(s): K92.2 - Gastrointestinal hemorrhage, unspecified (2) Hypertension Current Visit: No Status: Chronic Assessment and plan: Fairly controlled will resume home meds Hydralazine IV PRN Qualifiers: Hypertension type: essential hypertension Qualified Code(s): I10 - Essential (primary) hypertension (3) DVT prophylaxis Current Visit: No Status: Acute Assessment and plan: SCD (4) PAF (paroxysmal atrial fibrillation) Current Visit: No Status: Acute Assessment and plan: rate controlled with Metoprolol not a good candidate for anti coag (5) Acute blood loss anemia Current Visit: Yes Status: Acute Assessment and plan: Due to GI Bleed Held anti coag not a good candidate for anti coag s/p 2 U PRBC.. Improved Hb GI work up - P (6) HLD (hyperlipidemia) Current Visit: Yes Status: Acute Assessment and plan: on statin Qualifiers: Hyperlipidemia type: unspecified Qualified Code(s): E78.5 - Hyperlipidemia , unspecified - Time Spent With Patient Total time spent is greater than 50% in coordination of care (as documented) at patient's floor/unit and/or counseling patient: - Subjective Interval history: No acute events overnight - Constitutional Vitals: Temp Pulse Resp BP Pulse Ox 98.3 F 59 16 158/74 99 11/24/17 12:44 11/24/17 12:44 11/24/17 12:44 11/24/17 12:44 11/24/17 12:44 General appearance: Present: A&O X 3, pleasant, no acute distress, answers questions appropriately - Head Head exam: Present: atraumatic, normocephalic - Eye Eye exam: Present: PERRL, conjuntiva pink, sclera anicteric Pupils: Present: PERRL - Neck Neck exam general surgery: Present: supple, trachea midline. Absent: lymphadenopathy - Respiratory Respiratory exam: Present: CTAB. Absent: accessory muscle use, rales, rhonchi, wheezes - Cardiovascular Cardiovascular exam: Present: RRR, +S1, +S2. Absent: diastolic murmur, gallop, rubs, systolic murmur - GI/Abdominal GI/Abdominal exam: Present: normal bowel sounds, soft, no peritoneal signs. Absent: distended, tenderness - Extremities Exam Extremities exam: Present: warm, radial pulses palpable and symmetrical. Absent : calf tenderness, cyanotic, pedal edema - Neurological Exam Neurological exam: Present: CN II-XII intact, oriented X3, no focal deficits. Absent: pronater drift, facial droop, speech deficit - Skin Skin exam: Present: dry, intact Internal Medicine: Result - Labs CBC & Chem 7: 11/24/17 06:48 11/24/17 06:48 Labs: Short CBC 11/23/17 11/24/17 Range/Units 19:07 06:48 WBC 3.2 L (4.3-11.1) K/mcL Hgb 8.1 L 7.5 L (12.9-16.9) g/dL Hct 27.5 L 25.2 L (37.5-50.1) % Plt Count 164 (140-400) K/mcL Neutrophils # 1.9 (1.6-8.9) K/mcL BMP 11/24/17 06:48 Sodium 136 Potassium 4.3 Chloride 108 H Carbon Dioxide 22 L BUN 16 Creatinine 1.11 Glucose 87 Calcium 8.7 - ABG Interpretation ABG results: PT/INR, D-dimer PT 13.3 Seconds (9.4-12.1) H 11/22/17 18:29 - VTE Documentation of Mechanical Device: Intermittent pneumatic compression device Consult Discharge Plan - Plan [facility]errals: [facility] [Primary Care Provider[facility] -
--- NOTE | 2017-11-24 14:33 | Anesthesia Evaluation Post Op ---
Date of Encounter: 11/24/17 Time of Encounter: 14:32 - Vital Signs Vital Signs: 113/51, HR 66, RR 16, SpO2 99% - Lungs Lungs: Clear Ascult./Percussion - Airway Airway: Non-obstructed - Cardiovascular Regular Rate - Mental Status Mental Status: Alert & Oriented, Answers Appropriately - Pain Pain Scale: 0 Pain Scale used: Numeric (1 - 10) - Nausea Vomiting Nausea Vomiting: Not Present - Hydration Hydration: NPO, Has not voided - Discharge PostOp Status: Transfer Patient to floor
[2017-11-24 14:47] VITALS: BP 173/73
--- NOTE | 2017-11-24 15:53 | Discharge Summary ---
- NOTES TO OUTPATIENT PROVIDER Notes to Outpatient Provider: Follow up with GI and PCP Orders not resulted at time of discharge: Pending orders 11/23/17 14:40 Surgical Pathology [PTH] Routine 11/24/17 14:20 Surgical Pathology [PTH] Routine Date of Encounter: 11/24/17 Time of Encounter: 15:00 - Discharge Diagnosis (1) GI bleed Priority: Primary Status: Acute Assessment and Plan: 82 year old male with pmh of hypertension, s/p CBAG with a fib postop started on xarelto came in with fatigue and black tarry stools. He was managed for acute GI bleed and trasnfused 2 units of pRBC. he had an EGD and colonoscopy done showing no active sites of bleeding. He was discharged on BID protonix and all antiplatelet and anticoagulation were held on discharge. He is to follow up with GI and PCP regarding resumption of anticoagulation if indicated. He was counseled accordingly Qualifiers: GI bleed type/associated pathology: unspecified gastrointestinal hemorrhage type Qualified Code(s): K92.2 - Gastrointestinal hemorrhage, unspecified (2) Hypertension Priority: Secondary Status: Chronic Assessment and Plan: Fairly controlled will resume home meds Hydralazine IV PRN Qualifiers: Hypertension type: essential hypertension Qualified Code(s): I10 - Essential (primary) hypertension (3) DVT prophylaxis Priority: Secondary Status: Acute Assessment and Plan: SCD (4) PAF (paroxysmal atrial fibrillation) Priority: Secondary Status: Acute Assessment and Plan: rate controlled with Metoprolol not a good candidate for anti coag (5) Acute blood loss anemia Priority: Secondary Status: Acute Assessment and Plan: Due to GI Bleed Held anti coag not a good candidate for anti coag s/p 2 U PRBC.. Improved Hb GI work up - P (6) HLD (hyperlipidemia) Priority: Secondary Status: Acute Assessment and Plan: on statin Qualifiers: Hyperlipidemia type: unspecified Qualified Code(s): E78.5 - Hyperlipidemia , unspecified Hospital course: Mr. Pagan is a 82 year old male - Time Spent with Patient Total time spent providing and/or coordinating discharge services: - Discharge Medications Prescriptions: Pantoprazole Sodium [Protonix] 40 mg PO BID #60 tablet.dr Home Medications: Acetaminophen [Tylenol] 650 mg PO TID PRN 10/06/16 [History] Atorvastatin [Lipitor] 40 mg PO HS #30 tablet 10/17/16 [Rx] Metoprolol [Lopressor] 50 mg PO BID #60 tablet 10/17/16 [Rx] Nitroglycerin [Nitrostat] 0.4 mg SL Q5MIN PRN 11/22/17 [History] Sennosides [Senna] 17.2 mg PO DAILY 11/22/17 [History] Turmeric Root Extract [Turmeric] 500 mg PO DAILY 11/22/17 [History] Pantoprazole Sodium [Protonix] 40 mg PO BID #60 tablet. 11/24/17 [Rx] Allergies/Adverse Reactions: 3 Allergy/AdvReac Type Severity Reaction Status Date / Time Penicillins Allergy Anaphylaxis Verified 11/22/17 20:18 Date of admission: 11/22/17 20:09 [facility] care physician: [facility] - Constitutional Vitals: Temp Pulse Resp BP Pulse Ox 97.7 F 65 18 173/73 98 11/24/17 14:37 11/24/17 14:37 11/24/17 14:37 11/24/17 14:37 11/24/17 14:37 General appearance: Present: A&O X 3, pleasant, no acute distress, answers questions appropriately - Head Head exam: Present: atraumatic, normocephalic - Eye Eye exam: Present: PERRL, conjuntiva pink, sclera anicteric Pupils: Present: PERRL - Neck Neck exam general surgery: Present: supple, trachea midline. Absent: lymphadenopathy - Respiratory Respiratory exam: Present: CTAB. Absent: accessory muscle use, rales, rhonchi, wheezes - Cardiovascular Cardiovascular exam: Present: RRR, +S1, +S2. Absent: diastolic murmur, gallop, rubs, systolic murmur - GI/Abdominal GI/Abdominal exam: Present: normal bowel sounds, soft, no peritoneal signs. Absent: distended, tenderness - Extremities Exam Extremities exam: Present: warm, radial pulses palpable and symmetrical. Absent : calf tenderness, cyanotic, pedal edema - Neurological Exam Neurological exam: Present: CN II-XII intact, oriented X3, no focal deficits. Absent: pronater drift, facial droop, speech deficit - Skin Skin exam: Present: dry, intact - Patient Status Disposition: Home, Self-Care Condition: Good - Discharge Instructions Follow Up With: [facility] [Primary Care Provider[facility] - Forms: ED Satisfaction Letter - VTE Documentation of Mechanical Device: Intermittent pneumatic compression device
== END 2017-11-24 17:26 | disposition home or self-care (01) | DRG 378 ==
LOC: 3NENU 17:20 → EMEROO 17:20 → 3NENU 21:15
PROVIDERS: ADMIT Internal Medicine; ATTEND Internal Medicine
PROC: ENDOEBX (2017-11-23 14:00)

== ENCOUNTER 2020-04-20 16:55 | Inpatient (IN) ==
[2020-04-20] MEDS ORDERED: Ondansetron 4 MG/2 ML VIAL IVP ONE (18:10)
[2020-04-20] MEDS ORDERED: Pantoprazole 40 MG VIAL IVP ONE (18:10)
[2020-04-20] MEDS ORDERED: Isovue-370 500 ML BOTTLE IVP ONE (18:11)
[2020-04-20 18:30] LABS: Basophils % 0.2 %; Eosinophils % 0.2 %; Hemoglobin 14.1 g/dL (12.9-16.9); Immature Granulocytes % 0.4 % (0-4); Lymphocytes # 0.2 K/mcL (0.6-4.6); Lymphocytes % 3.9 %; Mean Corpuscular HGB Conc 32.8 g/dL (31.6-35.5); Mean Corpuscular Hemoglobin 28.2 pg (28.0-33.3); Mean Platelet Volume 9.8 fL (9.4-12.4); Monocytes # 0.3 K/mcL (0.0-1.3); Monocytes % 6.4 %; Neutrophils # 4.1 K/mcL (1.6-8.9); Platelet Count 155 K/mcL (140-400); Red Cell Distribution Width 13.3 % (11.5-14.5); Segmented Neutrophils % 88.9 %; White Blood Count 4.6 K/mcL (4.3-11.1)
[2020-04-20 18:54] LABS: Alanine Aminotransferase 389 Units/L (7-52); Albumin 3.8 g/dL (3.5-5.7); Albumin/Globulin Ratio 1.2 (1.1-2.2); Alkaline Phosphatase 213 Units/L (34-104); Amylase 32 Units/L (29-103); Aspartate Amino Transferase 204 Units/L (13-39); BUN/Creatinine Ratio 14 (6-26); Bilirubin,Direct 2.2 mg/dL (0.0-0.2); Bilirubin,Indirect 1.9 mg/dL (0.0-1.0); Bilirubin,Total 4.1 mg/dL (0.3-1.0); Blood Urea Nitrogen 17 mg/dL (8-23); Calcium 9.1 mg/dL (8.6-10.3); Carbon Dioxide 25 mEq/L (23-29); Chloride 100 mEq/L (98-107); Globulin 3.1 g/dL (2.4-3.5); Glucose 115 mg/dL (70-105); Lipase 21 Units/L (11-82); Osmolality,Calculated 276 (280-300); Potassium 4.2 mEq/L (3.5-5.1); Sodium 132 mEq/L (136-145); Total Protein 6.9 g/dL (6.4-8.9); Troponin I < 0.03 ng/mL (< 0.04); eGFR For African Americans > 60 (> 60); eGFR For Non-African Americans 58 (> 60)
[2020-04-20] MEDS ORDERED: *HR* FentaNYL (PF) 100 MCG/2 ML VIAL IVP ONE (19:47)
[2020-04-20 19:52] LABS: Platelet Estimate Normal (Normal)
[2020-04-20] MEDS ORDERED: *HR* HYDROmorphone (PF) 1 MG/ML SYRINGE IVP ONE (19:55)
[2020-04-20 20:03] LABS: Bacteria,Urine Few per hpf (None-Few); Bilirubin,Urine Small (Negative); Blood,Urine Small (Negative); Clarity,Urine Clear (Clear); Color,Urine Yellow (Yellow); Glucose,Urine (UA) Normal (Normal); Ketones,Urine Negative (Negative); Leukocyte Esterase,Urine Negative (Negative); Mucus,Urine Few per lpf (None-Few); Nitrite,Urine Negative (Negative); PH,Urine 6.5 pH Units (5.0-8.0); Protein,Urine 30 mg/dL (Neg-Trace); RBC,Urine 0-3 per hpf (0-3); Specific Gravity,Urine 1.019 (1.010-1.025); Squamous Epithelial Cell,Urine Few per hpf (None-Few); WBC,Urine 0-3 per hpf (0-3)
[2020-04-20] MEDS ORDERED: Ondansetron 4 MG/2 ML VIAL IVP PRN (22:42)
[2020-04-20] MEDS ORDERED: Naloxone 0.4 MG/ML INJ IVP PRN (22:42)
[2020-04-20] MEDS: MetroNIDAZOLE 500 MG/100 ML 500 MG/100 ML BAG IVPB SCH (23:15)
[2020-04-21] MEDS: Ringers Solution, Lactated 1,000 ML IVC SCH ×2 (00:19→17:21)
[2020-04-21 06:11] LABS: Basophils % 0.3 %; Eosinophils % 0.3 %; Hematocrit 42.2 % (37.5-50.1); Immature Granulocytes % 0.5 % (0-4); Lymphocytes # 0.4 K/mcL (0.6-4.6); Lymphocytes % 10.6 %; Mean Corpuscular HGB Conc 33.2 g/dL (31.6-35.5); Mean Corpuscular Hemoglobin 29.4 pg (28.0-33.3); Mean Corpuscular Volume 88.5 fL (83.0-100.0); Mean Platelet Volume 10.1 fL (9.4-12.4); Monocytes # 0.4 K/mcL (0.0-1.3); Monocytes % 9.8 %; Platelet Count 142 K/mcL (140-400); Red Blood Count 4.77 M/mcL (4.19-5.50); Red Cell Distribution Width 13.5 % (11.5-14.5); Segmented Neutrophils % 78.5 %; White Blood Count 3.8 K/mcL (4.3-11.1)
[2020-04-21 06:28] LABS: BUN/Creatinine Ratio 15 (6-26); Blood Urea Nitrogen 17 mg/dL (8-23); Calcium 8.8 mg/dL (8.6-10.3); Carbon Dioxide 28 mEq/L (23-29); Chloride 100 mEq/L (98-107); Chol/HDL Ratio 4.8 (0-4.9); Cholesterol 91 mg/dL (< 200); Glucose 114 mg/dL (70-105); HDL Cholesterol 19 mg/dL (40-59); LDL Cholesterol,Calculated 45 mg/dL (< 100); Osmolality,Calculated 278 (280-300); Potassium 4.8 mEq/L (3.5-5.1); Sodium 133 mEq/L (136-145); Triglycerides 133 mg/dL (< 150); eGFR For African Americans > 60 (> 60); eGFR For Non-African Americans > 60 (> 60)
[2020-04-21] MEDS: MetroNIDAZOLE 500 MG/100 ML 500 MG/100 ML BAG IVPB SCH ×4 (06:28→23:47)
[2020-04-21 08:09] LABS: Bilirubin,Total 3.1 mg/dL (0.3-1.0)
[2020-04-21 09:23] LABS: Albumin 3.5 g/dL (3.5-5.7); Albumin/Globulin Ratio 1.3 (1.1-2.2); Bilirubin,Direct 1.5 mg/dL (0.0-0.2); Bilirubin,Indirect 1.6 mg/dL (0.0-1.0); Globulin 2.7 g/dL (2.4-3.5); Total Protein 6.2 g/dL (6.4-8.9)
[2020-04-21 12:03] LABS: INR 1.2; Prothrombin Time 14.1 Seconds (9.4-12.1)
[2020-04-22] MEDS: MetroNIDAZOLE 500 MG/100 ML 500 MG/100 ML BAG IVPB SCH ×4 (06:01→23:31)
[2020-04-22 06:03] LABS: Basophils % 0.3 %; Eosinophils % 1.4 %; Hematocrit 43.1 % (37.5-50.1); Hemoglobin 13.9 g/dL (12.9-16.9); Immature Granulocytes % 0.3 % (0-4); Lymphocytes # 0.4 K/mcL (0.6-4.6); Lymphocytes % 12.2 %; Mean Corpuscular HGB Conc 32.3 g/dL (31.6-35.5); Mean Corpuscular Hemoglobin 28.1 pg (28.0-33.3); Mean Corpuscular Volume 87.2 fL (83.0-100.0); Mean Platelet Volume 9.5 fL (9.4-12.4); Monocytes # 0.4 K/mcL (0.0-1.3); Monocytes % 12.6 %; Neutrophils # 2.2 K/mcL (1.6-8.9); Platelet Count 149 K/mcL (140-400); Red Blood Count 4.94 M/mcL (4.19-5.50); Red Cell Distribution Width 13.7 % (11.5-14.5); Segmented Neutrophils % 73.2 %; White Blood Count 2.9 K/mcL (4.3-11.1)
[2020-04-22 06:22] LABS: Albumin 3.7 g/dL (3.5-5.7); Albumin/Globulin Ratio 1.3 (1.1-2.2); Bilirubin,Direct 0.9 mg/dL (0.0-0.2); Bilirubin,Indirect 1.5 mg/dL (0.0-1.0); Bilirubin,Total 2.4 mg/dL (0.3-1.0); Globulin 2.9 g/dL (2.4-3.5); Total Protein 6.6 g/dL (6.4-8.9)
[2020-04-22 06:25] LABS: BUN/Creatinine Ratio 15 (6-26); Blood Urea Nitrogen 18 mg/dL (8-23); Calcium 8.8 mg/dL (8.6-10.3); Carbon Dioxide 25 mEq/L (23-29); Chloride 99 mEq/L (98-107); Glucose 94 mg/dL (70-105); Osmolality,Calculated 270 (280-300); Potassium 4.1 mEq/L (3.5-5.1); Sodium 129 mEq/L (136-145); eGFR For African Americans > 60 (> 60); eGFR For Non-African Americans 59 (> 60)
[2020-04-22] MEDS: Ringers Solution, Lactated 1,000 ML IVC SCH ×3 (08:50→23:32)
[2020-04-22] MEDS ORDERED: *HR* FentaNYL (PF) 100 MCG/2 ML VIAL ONE (13:10)
[2020-04-22] MEDS ORDERED: Indomethacin 50 MG SUPP.RECT RC ONE (13:34)
[2020-04-23] MEDS: MetroNIDAZOLE 500 MG/100 ML 500 MG/100 ML BAG IVPB SCH ×4 (06:15→23:07)
[2020-04-23] MEDS ORDERED: Lidocaine -MPF 4% 5 ML AMPUL ONE (07:02)
[2020-04-23] MEDS ORDERED: Ondansetron 4 MG/2 ML VIAL ONE (07:05)
[2020-04-23] MEDS ORDERED: *HR* Succinylcholine 200 MG/10 ML VIAL IVP ONE (07:05)
[2020-04-23] MEDS ORDERED: *HR* Propofol 200 MG/20 ML VIAL IVP ONE ×2 (07:05→07:06)
[2020-04-23] MEDS ORDERED: Lidocaine -MPF 2% 2 ML VIAL ONE ×2 (07:05→07:06)
[2020-04-23] MEDS ORDERED: Dexamethasone 4 MG/ML VIAL ONE (07:05)
[2020-04-23] MEDS ORDERED: *HR* Rocuronium Bromide 50 MG/5 ML VIAL ONE (07:05)
[2020-04-23] MEDS ORDERED: *HR* FentaNYL (PF) 100 MCG/2 ML VIAL ONE (07:06)
[2020-04-23] MEDS ORDERED: Ondansetron 4 MG/2 ML VIAL IVP PRN ×4 (07:12→11:11)
[2020-04-23] MEDS ORDERED: *HR* HYDROmorphone PF 0.5 MG/0.5 ML SYRINGE IVP PRN ×2 (07:12→11:01)
[2020-04-23] MEDS ORDERED: *HR* OxyCODONE Immed Rel 5 MG TABLET PO PRN ×2 (07:12→11:01)
[2020-04-23] MEDS ORDERED: Ringers Solution, Lactated 1,000 ML IVC SCH (07:15)
[2020-04-23] MEDS ORDERED: CefOXitin 1,000 MG VIAL ONE (07:28)
[2020-04-23] MEDS ORDERED: Isovue-300 50ML VIAL ONE (07:28)
[2020-04-23] MEDS ORDERED: CefOXitin 2,000 MG VIAL ONE (08:29)
[2020-04-23] MEDS ORDERED: *HR* HYDROMORPHONE 2 MG/ML VIAL ONE (08:37)
[2020-04-23] MEDS ORDERED: *HR* Labetalol 20 MG/4 ML SYRINGE IVP ONE (08:41)
[2020-04-23] MEDS ORDERED: Acetaminophen IV 1,000 MG/100 ML INFUS..BTL ONE (08:42)
[2020-04-23] MEDS ORDERED: Naloxone 0.4 MG/ML INJ IVP PRN (11:01)
[2020-04-23] MEDS: Pantoprazole 40 MG VIAL IVP SCH (13:15)
[2020-04-23] MEDS: Ringers Solution, Lactated 1,000 ML IVC SCH ×3 (16:13→21:05)
[2020-04-24 06:24] LABS: Hematocrit 37.9 % (37.5-50.1); Hemoglobin 12.5 g/dL (12.9-16.9); Immature Granulocytes % 0.4 % (0-4); Lymphocytes % 7.1 %; Mean Corpuscular Hemoglobin 28.5 pg (28.0-33.3); Mean Corpuscular Volume 86.3 fL (83.0-100.0); Mean Platelet Volume 10.1 fL (9.4-12.4); Monocytes % 6.2 %; Platelet Count 149 K/mcL (140-400); Red Blood Count 4.39 M/mcL (4.19-5.50); Red Cell Distribution Width 13.3 % (11.5-14.5); Segmented Neutrophils % 86.3 %
[2020-04-24 06:25] LABS: Lymphocytes # 0.6 K/mcL (0.6-4.6); Monocytes # 0.5 K/mcL (0.0-1.3); Neutrophils # 7.1 K/mcL (1.6-8.9); White Blood Count 8.2 K/mcL (4.3-11.1)
[2020-04-24] MEDS: MetroNIDAZOLE 500 MG/100 ML 500 MG/100 ML BAG IVPB SCH ×3 (06:31→09:31)
[2020-04-24 06:41] LABS: BUN/Creatinine Ratio 20 (6-26); Blood Urea Nitrogen 19 mg/dL (8-23); Calcium 8.2 mg/dL (8.6-10.3); Carbon Dioxide 26 mEq/L (23-29); Chloride 103 mEq/L (98-107); Glucose 130 mg/dL (70-105); Osmolality,Calculated 282 (280-300); Potassium 4.2 mEq/L (3.5-5.1); Sodium 134 mEq/L (136-145); eGFR For African Americans > 60 (> 60); eGFR For Non-African Americans > 60 (> 60)
[2020-04-24 07:08] VITALS: BP 149/66
[2020-04-24] MEDS: Pantoprazole 40 MG VIAL IVP SCH (09:28)
[2020-04-24] MEDS: Ringers Solution, Lactated 1,000 ML IVC SCH ×2 (09:29→09:30)
== END 2020-04-24 14:27 | disposition home or self-care (01) | DRG 418 ==
LOC: 3ANU 16:55 → EMEROOARM 16:55 → SUATTDRO 20:44 → 3ANU 21:37 → SUATTDRO 04-22 17:30
PROVIDERS: ADMIT Internal Medicine; ATTEND Student in an Organized Health Care Education/Training Program